=== PATIENT | female | born 1935 | race Caucasian/White ===

== ENCOUNTER 2016-06-08 13:40 | Emergency (ER) | payer MEDICARE ==
[~2016-06-08] VITALS: Ht 152.4 cm; Wt 97.5 kg
[~2016-06-08 13:40] MED LIST: ALBU8I; ATOR20TA42 PO; CALC500C6 PO; FURO20TA PO; ISOS120T14 PO; LISI-357 PO; LOPR50TA12 PO; NITR.3 SL; OMEP20TA PO; POTA-243 PO; VIT250TA PO
[2016-06-08 13:42] VITALS: BP 157/74; PULSE 67; RESP 14; TEMP 98; O2SAT 94
[2016-06-08] MEDS ORDERED: ONDANSETRON HCL 4 MG/2 ML VIAL IVP ONE (15:30)
[2016-06-08] MEDS ORDERED: MORPHINE SULFATE 4 MG/ML INJ IV PUSH ONE (15:30)
[2016-06-08] MEDS ORDERED: SODIUM CHLORID 0.9% 500 ML INJ 500 ML IV ONE (15:30)
[2016-06-08] MEDS ORDERED: SODIUM CHLORIDE 0.9% FLUSH 5 ML FLUSH IVF PRN (15:30)
[2016-06-08] MEDS ORDERED: ASCOPOW5 (15:34)
[2016-06-08] MEDS ORDERED: ISOS120T PO (15:34)
[2016-06-08] MEDS ORDERED: METO50TA PO (15:34)
[2016-06-08] MEDS ORDERED: ALBUAER3 INH (15:34)
[2016-06-08] MEDS ORDERED: FURO20TA PO (15:34)
[2016-06-08] MEDS ORDERED: LIPI40TA PO (15:34)
[2016-06-08] MEDS ORDERED: OMEP20TA PO (15:34)
[2016-06-08] MEDS ORDERED: LISI-519 PO (15:35)
[2016-06-08] MEDS ORDERED: K DUR (15:35)
[2016-06-08] MEDS ORDERED: OCUVTAB PO (15:35)
[2016-06-08] MEDS ORDERED: NITR0.4S SL (15:35)
[2016-06-08] MEDS ORDERED: CALC500T35 (15:35)
[2016-06-08] MEDS ORDERED: [UNRECOGNIZED DRUG - REMARK] (15:41)
[2016-06-08 16:10] LABS: AUTOMATED NEUTROPHIL # 4.2 TH/MM3 (1.8-7.7); BASOPHIL % 0.6 % (0.0-2.0); EOSINOPHIL # 0.2 TH/MM3 (0-0.4); EOSINOPHIL % 2.4 % (0.0-4.0); HEMATOCRIT 34.8 % (35.0-46.0); LYMPH % 36.1 % (9.0-44.0); LYMPHOCYTE # 2.9 TH/MM3 (1.0-4.8); MEAN CELL VOLUME 76.6 FL (80.0-100.0); MEAN CORPUSCULAR HEMOGLOBIN 23.9 PG (27.0-34.0); MEAN CORPUSCULAR HGB CONC 31.2 % (32.0-36.0); MONO % 9.2 % (0.0-8.0); NEUT % 51.7 % (16.0-70.0); PLATELET COUNT 219 TH/MM3 (150-450); RED BLOOD COUNT 4.55 MIL/MM3 (4.00-5.30); RED CELL DISTRIBUTION WIDTH 17.1 % (11.6-17.2); WHITE BLOOD COUNT 8.1 TH/MM3 (4.0-11.0)
[2016-06-08 16:14] LABS: HEMO FLAGS AUTO DIFF
--- NOTE | 2016-06-08 16:24 | RADRPT ---
EXAM DATE/TIME: 06/08/2016 15:47 [facility] COMPARISON: No previous studies available for comparison. INDICATIONS : Abdomen pain. ORAL CONTRAST: No oral contrast ingested. RADIATION DOSE: 19.46 CTDIvol (mGy) MEDICAL HISTORY : Cardiovascular disease. SURGICAL HISTORY : None. ENCOUNTER: Initial ACUITY: 1 day PAIN SCALE: 5/10 LOCATION: Bilateral abdomen. TECHNIQUE: Volumetric scanning of the abdomen and pelvis was performed. Using automated exposure control and ad justment of the mA and/or kV according to patient size, radiation dose was kept as low as reasonably achievable to obtain optimal diagnostic quality images. FINDINGS: LOWER LUNGS: The moderate cardiomegaly without evidence of pericardial effusion. Extensive coronary artery disease . The lungs demonstrate mild dependent atelectasis but are otherwise unremarkable. LIVER: Homogeneous density without lesion. There is no dilation of the biliary tree. No calcified gallston es. Small calcified granulomas. SPLEEN: Normal size without lesion. PANCREAS: Within normal limits. KIDNEYS: No evidence of stones or hydronephrosis. There are 2 well-circumscribed simple appearing left-sided r enal cysts seen within the lower pole measuring approximately 2 cm in size. No evidence of concerning renal mass.. ADRENAL GLANDS: Within normal limits. VASCULAR: The noncontrast evaluation of the abdominal aorta is significant for extensive atherosclerosis and an aortic bifemoral graft from just below level of the renal arteries and extending into the proximal c ommon iliac arteries. BOWEL/MESENTERY: The stomach, small bowel, and colon demonstrate no acute abnormality. There is no free intraperitone al air or fluid. No evidence of inflammatory process. ABDOMINAL WALL: Within normal limits. RETROPERITONEUM: There is no lymphadenopathy. BLADDER: No wall thickening or mass. REPRODUCTIVE: Patient is status post prior hysterectomy. INGUINAL: There is no lymphadenopathy or hernia. MUSCULOSKELETAL: Within normal limits for patient age. Extensive degenerative changes are noted. No evidence of concer raisa lytic or blastic lesion. CONCLUSION: Extensive atherosclerosis of the abdominal aorta with stents as noted above. No evidence of adjacent periaortic abnormality. No evidence of inflammatory process within the abdomen or pelvis.. Lesley Carroll MD on June 08, 2016 at 16:17 Board Certified Radiologist. This report was verified electronically.
[2016-06-08 16:33] LABS: ANION GAP 8 MEQ/L (5-15); AST (GOT) 18 U/L (15-37); BICARBONATE 27.3 MEQ/L (21.0-32.0); BLOOD UREA NITROGEN 14 MG/DL (7-18); CHLORIDE 108 MEQ/L (98-107); GLOMERULAR FILTRATION RATE 61 ML/MIN (>89); POTASSIUM 4.1 MEQ/L (3.5-5.1); SODIUM (NA) 143 MEQ/L (136-145)
[2016-06-08 16:37] LABS: ALKALINE PHOSPHATASE 94 U/L (45-117); ALT (GPT) 21 U/L (10-53); TOTAL BILIRUBIN ADULT 0.6 MG/DL (0.2-1.0)
[2016-06-08 16:49] LABS: BACTERIA, URINE FEW /hpf; BLOOD, URINE NEG (NEG); CALCIUM OXALATE CRYSTALS,URINE FEW /hpf; COMMENT (UR) CULTURE INDICATED; CULTURE IF INDICATED CULTURE INDICATED; GLUCOSE,URINE NEG (NEG); KETONE, URINE NEG (NEG); MUCUS URINE FEW /lpf (OCC); NITRITE,URINE NEG (NEG); SQUAMOUS EPITHELIAL CELL URINE 2 /hpf (0-5); TRANSITIONAL EPI CELLS, URINE 2 /hpf; URINE COLOR YELLOW (YELLW/STRAW)
[2016-06-08 16:53] LABS: PLATELET ESTIMATE SMEAR NORMAL (NORMAL); PLATELET MORPHOLOGY NORMAL (NORMAL); SCAN/DIFF AUTO DIFF CONFIRMED
[2016-06-08] MEDS ORDERED: NITROFURANTOIN MONOHYD MACROCR 100 MG CAP PO ONE (17:00)
[2016-06-08] MEDS ORDERED: MACR100C2 PO (17:02)
--- NOTE | 2016-06-08 17:03 | PD ---
HPI Chief Complaint: GI Complaint Time Seen by Provider: 15:12 Travel History International Travel<30 days: No Contact w/Intl Traveler<30days: No Traveled to known affect area: No History of Present Illness HPI 80-year-old female came to the emergency room with history of abdominal pain. 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 She was mainly concerned from that standpoint. No history of fever or chills. No history of vomiting. She has some increase frequency of bowel movement past couple days. Vital signs were stable. [facility] Past Medical History Narrative Medical List of her past medical history as reviewed from the nursing note. Arthritis: No Asthma: Yes (bronchitis) Autoimmune Disease: No Blood Disorders: No Anxiety: No Depression: No Heart Rhythm Problems: No Cancer: No Cardiac Catheterization: Yes Cardiovascular Problems: Yes High Cholesterol: Yes Chemotherapy: No Chest Pain: Yes Congestive Heart Failure: No COPD: No Cerebrovascular Accident: No Coronary Artery Disease: Yes Diabetes: Yes (type 2 ) Patient Takes Glucophage: No Diminished Hearing: No Endocrine: No GERD: No Glaucoma: No Genitourinary: No Hepatitis: No Hiatal Hernia: No Hypertension: Yes Immune Disorder: No Kidney Stones: No Medical other: Yes (1 STENT IN HT) Musculoskeletal: No Neurologic: No Psychiatric: No Reproductive: No Respiratory: Yes (ASTHMA) Myocardial Infarction: Yes Radiation Therapy: No Renal Failure: No Seizures: No Sleep Apnea: No Thyroid Disease: No Ulcer: No PNEUMOCCOCAL Vaccine (Year): 3 ?: Not Menopausal: Yes Past Surgical History Abdominal Aneurysm Repair: Yes AICD: No Cardiac Surgery: Yes (CABG X2 1999) Coronary Artery Bypass Graft: Yes Coronary Stent: Yes Eye Surgery: Yes (BILAT CATARACT EXTRACT.) Genitourinary Surgery: No Pacemaker: No Other Surgery: Yes (DOUBLE CABG/ occlusion to circulation r leg ) Social History Alcohol Use: Yes (rare) Tobacco Use: No Substance Use: No Allergies-Medications (Allergen,Severity, Reaction): Uncoded Allergies: CRESTOR (Allergy, Severe, 11/23/11) EXTREME PAIN CALF OF LEGS Comments List of her allergies reviewed from the nursing note. Reported Meds & Prescriptions Reported Meds & Active Scripts Active Macrobid (Nitrofurantoin Monoh/Nitrofur Macro) 100 Mg Cap 100 Mg PO BID 10 Days Reported Potassium Chloride ER (Potassium Chloride) 10 Meq Cap 10 Meq PO DAILY [unk diabetic pill] DAILY Nitrostat SL (Nitroglycerin) 0.4 Mg Subl 0.4 Mg SL DIRECTED PRN 1 tablet under the tongue as needed for chest pain. Repeat every 5 minutes for a total of 3 DOSES or call 911 if NO relief. Ocuvite (Multiple Vitamins W/ Minerals) 1 Tab 1 Tab PO DAILY Calcium (Oyster Shell) 500 Mg Tab DAILY Lisinopril 5 Mg Tab 5 Mg PO DAILY Furosemide 20 Mg Tab 20 Mg PO DAILY Lipitor (Atorvastatin Calcium) 40 Mg Tab 40 Mg PO HS Ascorbic Acid (Ascorbic Acid (Bulk)) 1 Pow Pow 250 Mg DAILY Omeprazole 20 Mg Tab 20 Mg PO DAILY Metoprolol Tartrate 50 Mg Tab 50 Mg PO DAILY Isosorbide Mononitrate ER (Isosorbide Mononitrate) 120 Mg Zane 120 Mg PO DAILY Proair Hfa 8.5 GM Inh (Albuterol Sulfate) 90 Mcg/Act Aer 1 Puff INH Q4H PRN 108 mcg/actuation Narrative Medication List of her medications reviewed from the nursing note. Review of Systems Except as stated in HPI: all other systems reviewed are Neg Physical Exam Narrative GENERAL: Awake, alert, elderly, anxious SKIN: Warm and dry. HEAD: Atraumatic. Normocephalic. EYES: Pupils equal and round. No scleral icterus. No injection or drainage. ENT: No nasal bleeding or discharge. Mucous membranes pink and moist. NECK: Trachea midline. No JVD. CARDIOVASCULAR: Regular rate and rhythm. No murmur appreciated. RESPIRATORY: No accessory muscle use. Clear to auscultation. Breath sounds equal bilaterally. GASTROINTESTINAL: Abdomen soft, tender left lower quadrant on palpation, nondistended. Hepatic and splenic margins not palpable. MUSCULOSKELETAL: No obvious deformities. No clubbing. No cyanosis. No edema. NEUROLOGICAL: Awake and alert. No obvious cranial nerve deficits. Motor grossly within normal limits. Normal speech. PSYCHIATRIC: Appropriate mood and affect; insight and judgment normal. Data Data Last Documented VS Vital Signs Date Time Temp Pulse Resp B/P Pulse Ox O2 Delivery O2 Flow Rate FiO2 06/08/16 13:42 98.0 67 14 157/74 94 Room Air Orders Complete Blood Count With Diff (06/08/16 15:23) Comprehensive Metabolic Panel (06/08/16 15:23) Prothrombin Time / Inr (Pt) (06/08/16 15:23) Urinalysis - C+S If Indicated (06/08/16 15:23) Ct Abd/Pel W/O Iv Contrast (06/08/16 15:23) Iv Access Insert/Monitor (06/08/16 15:23) Ecg Monitoring (06/08/16 15:23) Oximetry (06/08/16 15:23) Morphine Inj (Morphine Inj) (06/08/16 15:30) Ondansetron Inj (Zofran Inj) (06/08/16 15:30) Sodium Chloride 0.9% Flush (Ns Flush) (06/08/16 15:30) Sodium Chlorid 0.9% 500 Ml Inj (Ns 500 M (06/08/16 15:30) Urine Culture (06/08/16 16:20) Nitrofurantoin Monohyd Macrocr (Macrobid (06/08/16 17:00) Labs Laboratory Tests Test 06/08/16 06/08/16 15:50 16:20 White Blood Count 8.1 TH/MM3 Red Blood Count 4.55 MIL/MM3 Hemoglobin 10.8 GM/DL Hematocrit 34.8 % Mean Corpuscular Volume 76.6 FL Mean Corpuscular Hemoglobin 23.9 PG Mean Corpuscular Hemoglobin 31.2 % Concent Red Cell Distribution Width 17.1 % Platelet Count 219 TH/MM3 Mean Platelet Volume 8.0 FL Neutrophils (%) (Auto) 51.7 % Lymphocytes (%) (Auto) 36.1 % Monocytes (%) (Auto) 9.2 % Eosinophils (%) (Auto) 2.4 % Basophils (%) (Auto) 0.6 % Neutrophils # (Auto) 4.2 TH/MM3 Lymphocytes # (Auto) 2.9 TH/MM3 Monocytes # (Auto) 0.7 TH/MM3 Eosinophils # (Auto) 0.2 TH/MM3 Basophils # (Auto) 0.0 TH/MM3 CBC Comment AUTO DIFF Differential Comment AUTO DIFF CONFIRMED Platelet Estimate NORMAL Platelet Morphology Comment NORMAL Red Cell Morphology Comment NORMAL Prothrombin Time 11.0 SEC Prothromb Time International 1.0 RATIO Ratio Sodium Level 143 MEQ/L Potassium Level 4.1 MEQ/L Chloride Level 108 MEQ/L Carbon Dioxide Level 27.3 MEQ/L Anion Gap 8 MEQ/L Blood Urea Nitrogen 14 MG/DL Creatinine 0.89 MG/DL Estimat Glomerular Filtration 61 ML/MIN Rate Random Glucose 116 MG/DL Calcium Level 8.6 MG/DL Total Bilirubin 0.6 MG/DL Aspartate Amino Transf 18 U/L (AST/SGOT) Alanine Aminotransferase 21 U/L (ALT/SGPT) Alkaline Phosphatase 94 U/L Total Protein 7.1 GM/DL Albumin 3.4 GM/DL Urine Color YELLOW Urine Turbidity HAZY Urine pH 6.0 Urine Specific [place] 1.024 Urine Protein TRACE mg/dL Urine Glucose (UA) NEG mg/dL Urine Ketones NEG mg/dL Urine Occult Blood NEG Urine Nitrite NEG Urine Bilirubin NEG Urine Urobilinogen 2.0 MG/DL Urine Leukocyte Esterase LARGE Urine RBC 1 /hpf Urine WBC 36 /hpf Urine Squamous Epithelial 2 /hpf Cells Urine Transitional Epithelial 2 /hpf Cells Urine Calcium Oxalate Crystals FEW /hpf Urine Bacteria FEW /hpf Urine Mucus FEW /lpf Microscopic Urinalysis Comment CULTURE INDICATED MDM Medical Decision Making Medical Screen Exam Complete: Yes Emergency Medical Condition: Yes Medical Record Reviewed: Yes Differential Diagnosis Diverticulitis, colitis, UTI, abdominal pain NOS Narrative Course [address] scan is not suggestive of any inflammatory changes. Show significant atherosclerosis with stents. Blood test results are within normal limit. Patient does have a UTI. I have given her dose of Macrobid and I'll discharge her home on Macrobid. Patient refused pain medication that I had ordered. Procedures EKG Prior to Arrival: No Diagnosis Primary Impression: Abdominal pain Qualified Code: R10.32 - Left lower quadrant pain Additional Impression: UTI (urinary tract infection) Qualified Code: N39.0 - Urinary tract infection without hematuria, site unspecified Referrals: Primary Care Physician 2 days Additional Instructions: Please return to the ER if the condition worsens or any other new concerns. Otherwise follow-up with your primary care in couple days. Patient has been the prescription direction. Med/Other Pt SpecificInfo: Prescription(s) given Scripts Nitrofurantoin Monohydrate Macrocrystals (Macrobid)100 Mg Voc710 Mg PO BID 10 Days Ref 0 Prov:Florentino Powell MD 06/08/16 Disposition: 01 DISCHARGE HOME Condition: Stable Florentino Powell MD Jun 08, 2016 17:03
[2016-06-09] MEDS ORDERED: POTA10CA PO (11:12)
== END 2016-06-08 17:58 | disposition home or self-care (01) ==
LOC: NEPA 13:40
DX: N39.0 Urinary tract infection, site not specified (principal); I25.10 Atherosclerotic heart disease of native coronary artery without angina pectoris; I10 Essential (primary) hypertension; Z95.1 Presence of aortocoronary bypass graft; B96.89 Other specified bacterial agents as the cause of diseases classified elsewhere
CPT/HCPCS: 74176; 80053; 81001; 85025; 85610; 87086

== ENCOUNTER 2017-01-15 16:35 | Emergency (ER) | payer MEDICARE ==
[~2017-01-15] VITALS: Ht 152.4 cm; Wt 94.0 kg
[2017-01-15 16:35] VITALS: BP 116/57; PULSE 78; RESP 16; TEMP 98; O2SAT 96
[~2017-01-15 16:35] MED LIST changes: -ALBU8I; +ALBUAER3 INH; +ASCOPOW5; -ATOR20TA42 PO; -CALC500C6 PO; +CALC500T35 PO; +ISOS120T PO; -ISOS120T14 PO; +LIPI40TA PO; -LISI-357 PO; +LISI-519 PO; -LOPR50TA12 PO; +MACR100C2 PO; +METO50TA PO; -NITR.3 SL; +NITR0.4S SL; +OCUVTAB PO; -POTA-243 PO; +POTA10CA PO; -VIT250TA PO; +[UNRECOGNIZED DRUG - REMARK]
--- NOTE | 2017-01-15 16:55 | PD ---
HPI Chief Complaint: fall Time Seen by Provider: 16:52 Travel History International Travel<30 days: No Contact w/Intl Traveler<30days: No History of Present Illness HPI 81-year-old elderly female presents to the emergency department via EMS for evaluation after a fall that occurred just prior to arrival. The patient apparently [place] walking [place] the mall when her walker wheel got stuck in a hole according to bystanders when she fell backwards. The patient states she was walking is unsure what happened, but does remember falling backwards. She denies any dizziness or chest pain or weakness before the fall. She states she felt fine. She had the back of her head, but denies LOC. She has small abrasion to the back of her head. The patient denies any neck pain or back pain. No chest pain or abdominal pain. No vomiting. Patient was able to ambulate after the fall. According to EMS, she was confused on their arrival. However, she is now alert and oriented to person, place, time, situation. The patient is on a baby aspirin, but no other anticoagulants. She does have history of cardiac bypass surgery, hypertension. PFSH Past Medical History Arthritis: No Asthma: Yes (bronchitis) Autoimmune Disease: No Blood Disorders: No Anxiety: No Depression: No Heart Rhythm Problems: No Cancer: No Cardiac Catheterization: Yes Cardiovascular Problems: Yes High Cholesterol: Yes Chemotherapy: No Chest Pain: Yes Congestive Heart Failure: No COPD: No Cerebrovascular Accident: No Coronary Artery Disease: Yes Diabetes: Yes (type 2 ) Diminished Hearing: No Endocrine: No GERD: No Glaucoma: No Genitourinary: No Hepatitis: No Hiatal Hernia: No Hypertension: Yes Immune Disorder: No Kidney Stones: No Musculoskeletal: No Neurologic: No Psychiatric: No Reproductive: No Respiratory: Yes (ASTHMA) Myocardial Infarction: Yes Radiation Therapy: No Renal Failure: No Seizures: No Sleep Apnea: No Thyroid Disease: No Ulcer: No PNEUMOCCOCAL Vaccine (Year): 3 Menopausal: Yes Past Surgical History Abdominal Aneurysm Repair: Yes AICD: No Cardiac Surgery: Yes (CABG X2 1999) Coronary Artery Bypass Graft: Yes Coronary Stent: Yes Eye Surgery: Yes (BILAT CATARACT EXTRACT.) Genitourinary Surgery: No Pacemaker: No Other Surgery: Yes (DOUBLE CABG/ occlusion to circulation r leg ) Social History Alcohol Use: Yes (rare) Tobacco Use: No Substance Use: No Allergies-Medications (Allergen,Severity, Reaction): Uncoded Allergies: CRESTOR (Allergy, Severe, 11/23/11) EXTREME PAIN CALF OF LEGS Reported Meds & Prescriptions Reported Meds & Active Scripts Active Macrobid (Nitrofurantoin Monoh/Nitrofur Macro) 100 Mg Cap 100 Mg PO BID 10 Days Reported Potassium Chloride ER (Potassium Chloride) 10 Meq Cap 10 Meq PO DAILY [unk diabetic pill] DAILY Nitrostat SL (Nitroglycerin) 0.4 Mg Subl 0.4 Mg SL DIRECTED PRN 1 tablet under the tongue as needed for chest pain. Repeat every 5 minutes for a total of 3 DOSES or call 911 if NO relief. Ocuvite (Multiple Vitamins W/ Minerals) 1 Tab 1 Tab PO DAILY Calcium (Oyster Shell) 500 Mg Tab DAILY Lisinopril 5 Mg Tab 5 Mg PO DAILY Furosemide 20 Mg Tab 20 Mg PO DAILY Lipitor (Atorvastatin Calcium) 40 Mg Tab 40 Mg PO HS Ascorbic Acid (Ascorbic Acid (Bulk)) 1 Pow Pow 250 Mg DAILY Omeprazole 20 Mg Tab 20 Mg PO DAILY Metoprolol Tartrate 50 Mg Tab 50 Mg PO DAILY Isosorbide Mononitrate ER (Isosorbide Mononitrate) 120 Mg Zane 120 Mg PO DAILY Proair Hfa 8.5 GM Inh (Albuterol Sulfate) 90 Mcg/Act Aer 1 Puff INH Q4H PRN 108 mcg/actuation Review of Systems Except as stated in HPI: all other systems reviewed are Neg Physical Exam Narrative GENERAL: Well-nourished, well-developed elderly female patient, afebrile. SKIN: Focused skin assessment warm/dry. Patient has small abrasion to the occipital scalp. No lacerations HEAD: Normocephalic. EYES: No scleral icterus. No injection or drainage. NECK: Supple, trachea midline. No JVD or lymphadenopathy. CARDIOVASCULAR: Regular rate and rhythm without murmurs, gallops, or rubs. RESPIRATORY: Breath sounds equal bilaterally. No accessory muscle use. Lungs sounds are clear to auscultation. GASTROINTESTINAL: Abdomen soft, non-tender, nondistended. MUSCULOSKELETAL: No cyanosis, or edema. No bony point tenderness. BACK: Nontender without obvious deformity. No CVA tenderness. Data Data Last Documented VS Vital Signs Date Time Temp Pulse Resp B/P Pulse Ox O2 Delivery O2 Flow Rate FiO2 01/15/17 16:59 Room Air 01/15/17 16:35 98.0 78 16 116/[address] Brain W/O Iv Contrast(Rout) (01/15/17 ) Ct Cerv Spine W/O Contrast (01/15/17 ) MDM Medical Decision Making Medical Screen Exam Complete: Yes Emergency Medical Condition: Yes Medical Record Reviewed: Yes Interpretation(s) Ct cervical spine - CONCLUSION: Negative trauma CT. Last Impressions Head CT 01/15/17 0000 Signed Impressions: Service Date/Time: Sunday, January 15, 2017 17:09 - CONCLUSION: Soft tissue swelling with no acute fracture or hemorrhage. Gagan Valenzuela MD Differential Diagnosis Intracranial abnormality versus closed head injury versus cervical strain versus cervical fracture Narrative Course 81-year-old elderly female presents to the emergency department for evaluation after a fall that occurred just prior to arrival. CT of the brain and cervical spine are ordered and pending. Patient appears well on exam. CT of the brain shows Soft tissue swelling with no acute fracture or hemorrhage. CT of the cervical spine is negative. Tetanus immunization is updated. Patient is stable for outpatient follow up. She is to return for any acute, worsening of symptoms. Diagnosis Primary Impression: Closed head injury Qualified Code: S09.90XA - Closed head injury, initial encounter Additional Impressions: Scalp abrasion Qualified Code: S00.01XA - Abrasion of scalp, initial encounter Fall Qualified Code: W19.XXXA - Fall, initial encounter Referrals: Primary Care Physician call for appointment Patient Instructions: Abrasion (ED), General Instructions, Head Injury (ED) Additional Instructions: [id number] Tylenol every 4 hours as needed for pain. Follow-up with your primary care physician. Return to the emergency department for any acute worsening of symptoms. Med/Other Pt SpecificInfo: No Change to Meds Disposition: 01 DISCHARGE HOME Condition: Stable Winnie Low RIP Jan 15, 2017 16:55
--- NOTE | 2017-01-15 17:23 | RADRPT ---
EXAM DATE/TIME: 01/15/2017 17:09 [facility] COMPARISON: No previous studies available for comparison. INDICATIONS : Cephalgia after head trauma. RADIATION DOSE: 28.30 CTDIvol (mGy) MEDICAL HISTORY : Cardiovascular disease. Hypertension. Diabetes SURGICAL HISTORY : CABG AAA, Coronary stents ENCOUNTER: Initial ACUITY: 1 day PAIN SCALE: 4/10 LOCATION: cranial TECHNIQUE: Multiple contiguous axial images were obtained of the head. Using automated exposure control and adj ustment of the mA and/or kV according to patient size, radiation dose was kept as low as reasonably a chievable to obtain optimal diagnostic quality images. DICOM format image data is available electro nically for review and comparison. FINDINGS: CEREBRUM: The ventricles are normal for age. No evidence of midline shift, mass lesion, hemorrhage or acute in farction. Calcifications are present in the basal ganglia No extra-axial fluid collections are seen. POSTERIOR FOSSA: The cerebellum and brainstem are intact. The 4th ventricle is midline. The cerebellopontine angle i s unremarkable. EXTRACRANIAL: The visualized portion of the orbits is intact. SKULL: The calvaria is intact. No evidence of skull fracture. There is mild soft tissue swelling over the p osterior upper occipital region. CONCLUSION: Soft tissue swelling with no acute fracture or hemorrhage. Gagan Valenzuela MD on January 15, 2017 at 17:19 Board Certified Radiologist. This report was verified electronically.
--- NOTE | 2017-01-15 17:31 | RADRPT ---
EXAM DATE/TIME: 01/15/2017 17:09 [facility] COMPARISON: No previous studies available for comparison. INDICATIONS : Fall. RADIATION DOSE: 22.35 CTDIvol (mGy) MEDICAL HISTORY : Cardiovascular disease. Hypertension. Diabetes SURGICAL HISTORY : CABG AAA,Coronary stent ENCOUNTER: Initial ACUITY: 1 day PAIN SCALE: 7/10 LOCATION: Bilateral neck TECHNIQUE: Volumetric scanning of the cervical spine was performed. Multiplanar reconstructions i n the sagittal, coronal and oblique axial planes were performed. Using automated exposure control a nd adjustment of the mA and/or kV according to patient size, radiation dose was kept as low as reason ably achievable to obtain optimal diagnostic quality images. DICOM format image data is available e lectronically for review and comparison. FINDINGS: The sagittal reconstructions demonstrate that the vertebral bodies are intact. There is mild retrolis thesis of C4 on C5 of several millimeters. Degenerative disc changes are present at the C4-5 level. T here are degenerative changes involving atlantoaxial joint. There is mild osteopenia. and normal prev ertebral soft tissues. The dens is intact and there is a normal atlantoaxial relationship. The axial images demonstrate that the vertebral bodies and posterior elements are intact. The soft ti ssues are within normal limits. There is no evidence of acute fracture or malalignment. CONCLUSION: Negative trauma CT. Gagan Valenzuela MD on January 15, 2017 at 17:25 Board Certified Radiologist. This report was verified electronically.
[2017-01-15] MEDS ORDERED: TETANUS/DIPHTHERIA TOXOID ADULT 0.5 ML VIAL IM ONE (17:45)
[2017-01-15] MEDS ORDERED: METF500T PO (17:52)
[2017-01-15] MEDS ORDERED: ASCO250T PO (17:52)
[2017-01-15 18:02] VITALS: BP 118/60
== END 2017-01-15 18:55 | disposition home or self-care (01) ==
LOC: NEPD 16:35
DX: S09.90XA Unspecified injury of head, initial encounter (principal); S00.01XA Abrasion of scalp, initial encounter; I10 Essential (primary) hypertension; E11.9 Type 2 diabetes mellitus without complications; I25.10 Atherosclerotic heart disease of native coronary artery without angina pectoris; W18.30XA Fall on same level, unspecified, initial encounter; Y93.01 Activity, walking, marching and hiking; Y92.59 Other trade areas as the place of occurrence of the external cause; Z23 Encounter for immunization
CPT/HCPCS: 70450; 72125; 90714; 99285

== ENCOUNTER 2017-03-01 16:08 | Emergency (ER) | payer MEDICARE ==
[~2017-03-01] VITALS: Ht 152.4 cm; Wt 95.0 kg
[~2017-03-01 16:08] MED LIST changes: +ASCO250T PO; -ASCOPOW5; -MACR100C2 PO; +METF500T PO; -[UNRECOGNIZED DRUG - REMARK]
[2017-03-01 16:14] VITALS: BP 140/70; PULSE 66; RESP 16; TEMP 97.8; O2SAT 96
--- NOTE | 2017-03-01 16:58 | PD ---
HPI Chief Complaint: Musculoskeletal Complaint Time Seen by Provider: 16:22 Travel History International Travel<30 days: No Contact w/Intl Traveler<30days: No Traveled to known affect area: No History of Present Illness HPI The patient was seen and examined in the presence of the nurse. This patient had a ultrasound of her left leg done in the office of vascular surgeon Dr. Aviles. She was advised to go to the emergency room because she had a DVT in the left leg. Patient has chronic pain in that leg and denies any swelling or redness or fever. No acute injury. Symptoms severity is moderate. No alleviating factors. She is not short of breath. Denies history of blood clot. She takes a daily aspirin. No exacerbating factors. Duration of pain is many months PFSH Past Medical History Arthritis: No Asthma: Yes (bronchitis) Autoimmune Disease: No Blood Disorders: No Anxiety: No Depression: No Heart Rhythm Problems: No Cancer: No Cardiac Catheterization: Yes Cardiovascular Problems: Yes High Cholesterol: Yes Chemotherapy: No Chest Pain: Yes Congestive Heart Failure: No COPD: No Cerebrovascular Accident: No Coronary Artery Disease: Yes Diabetes: Yes (type 2 ) Patient Takes Glucophage: Yes Diminished Hearing: No Endocrine: No GERD: No Glaucoma: No Genitourinary: No Hepatitis: No Hiatal Hernia: No Hypertension: Yes Immune Disorder: No Kidney Stones: No Medical other: Yes (1 STENT IN HT) Musculoskeletal: No Neurologic: No Psychiatric: No Reproductive: No Respiratory: Yes (ASTHMA) Immunizations Current: Yes Myocardial Infarction: Yes Radiation Therapy: No Renal Failure: No Seizures: No Sleep Apnea: No Thyroid Disease: No Ulcer: No PNEUMOCCOCAL Vaccine (Year): 3 Menopausal: Yes Past Surgical History Abdominal Aneurysm Repair: Yes AICD: No Cardiac Surgery: Yes (CABG X2 1999) Coronary Artery Bypass Graft: Yes Coronary Stent: Yes Eye Surgery: Yes (BILAT CATARACT EXTRACT.) Genitourinary Surgery: No Pacemaker: No Thoracic Surgery: Yes Other Surgery: Yes (DOUBLE CABG/ occlusion to circulation r leg ) Social History Alcohol Use: Yes (rare) Tobacco Use: No Substance Use: No Allergies-Medications (Allergen,Severity, Reaction): Uncoded Allergies: CRESTOR (Allergy, Severe, 11/23/11) EXTREME PAIN CALF OF LEGS Reported Meds & Prescriptions Reported Meds & Active Scripts Active Xarelto (Rivaroxaban) 15 Mg Tab 15 Mg PO Q12HR Reported Metformin (Metformin HCl) 500 Mg Tab 500 Mg PO DAILY With a meal Potassium Chloride ER (Potassium Chloride) 10 Meq Cap 10 Meq PO DAILY Nitrostat SL (Nitroglycerin) 0.4 Mg Subl 0.4 Mg SL DIRECTED PRN 1 tablet under the tongue as needed for chest pain. Repeat every 5 minutes for a total of 3 DOSES or call 911 if NO relief. Lisinopril 5 Mg Tab 5 Mg PO DAILY Furosemide 20 Mg Tab 20 Mg PO DAILY Lipitor (Atorvastatin Calcium) 40 Mg Tab 40 Mg PO HS Omeprazole 20 Mg Tab 20 Mg PO DAILY Metoprolol Tartrate 50 Mg Tab 50 Mg PO DAILY Isosorbide Mononitrate ER (Isosorbide Mononitrate) 120 Mg Zane 120 Mg PO DAILY Proair Hfa 8.5 GM Inh (Albuterol Sulfate) 90 Mcg/Act Aer 1 Puff INH Q4H PRN 108 mcg/actuation Review of Systems General / Constitutional: No: Fever Eyes: No: Visual changes HENT: No: Headaches Cardiovascular: No: Chest Pain or Discomfort Respiratory: No: Shortness of Breath Gastrointestinal: No: Abdominal Pain Genitourinary: No: Dysuria Musculoskeletal: Positive: Pain Skin: No Rash Neurologic: No: Weakness Psychiatric: No: Depression Endocrine: No: Polydipsia Hematologic/Lymphatic: No: Easy Bruising Physical Exam Narrative GENERAL: Well-nourished, well-developed patient in no apparent distress. SKIN: Focused skin assessment reveals no rash and nodules. Skin is Warm and dry. HEAD: Atraumatic. Normocephalic. EYES: Pupils equal and round. No scleral icterus. No injection or drainage. ENT: No nasal bleeding or discharge. Mucous membranes pink and moist. NECK: Trachea midline. No JVD. CARDIOVASCULAR: Regular rate and rhythm. No murmur appreciated. RESPIRATORY: No accessory muscle use. Clear to auscultation. Breath sounds equal bilaterally. GASTROINTESTINAL: Abdomen soft, obese, non-tender, nondistended. Hepatic and splenic margins not palpable. MUSCULOSKELETAL: No obvious deformities. No clubbing. No cyanosis. No edema. Legs are symmetric and exam. There is no erythema or warmth or bony tenderness. NEUROLOGICAL: Awake and alert. No obvious cranial nerve deficits. Motor grossly within normal limits. Normal speech. PSYCHIATRIC: Appropriate mood and affect; insight and judgment normal. Data Data Last Documented VS Vital Signs Date Time Temp Pulse Resp B/P (MAP) Pulse Ox O2 Delivery O2 Flow Rate FiO2 03/01/17 18:25 68 18 144/79 (100) 96 Room Air 03/01/17 16:14 97.8 Orders Orders Iv Access Insert/Monitor (03/01/17 16:52) Complete Blood Count With Diff (03/01/17 16:52) Prothrombin Time / Inr (Pt) (03/01/17 16:52) Act Partial Throm Time (Ptt) (03/01/17 16:52) Rivaroxaban (Xarelto) (03/01/17 18:45) Labs Laboratory Tests Test 03/01/17 17:00 White Blood Count 9.1 TH/MM3 Red Blood Count 4.61 MIL/MM3 Hemoglobin 10.8 GM/DL Hematocrit 34.8 % Mean Corpuscular Volume 75.5 FL Mean Corpuscular Hemoglobin 23.3 PG Mean Corpuscular Hemoglobin Concent 30.9 % Red Cell Distribution Width 17.7 % Platelet Count 247 TH/MM3 Mean Platelet Volume 7.7 FL Neutrophils (%) (Auto) 60.0 % Lymphocytes (%) (Auto) 30.5 % Monocytes (%) (Auto) 7.8 % Eosinophils (%) (Auto) 0.8 % Basophils (%) (Auto) 0.9 % Neutrophils # (Auto) 5.4 TH/MM3 Lymphocytes # (Auto) 2.8 TH/MM3 Monocytes # (Auto) 0.7 TH/MM3 Eosinophils # (Auto) 0.1 TH/MM3 Basophils # (Auto) 0.1 TH/MM3 CBC Comment AUTO DIFF Differential Comment AUTO DIFF CONFIRMED Prothrombin Time 11.1 SEC Prothromb Time International Ratio 1.0 RATIO Activated Partial Thromboplast Time 24.0 SEC MDM Medical Decision Making Medical Screen Exam Complete: Yes Emergency Medical Condition: Yes Medical Record Reviewed: Yes Differential Diagnosis DVT, soft tissue injury, arthritis, chronic pain Narrative Course I have reviewed the patient's electronic medical record. I called and spoke with Dr. Aviles. He confirms that the patient did have an ultrasound today which revealed a left leg DVT. We discussed treatment options and he agrees with the plan of checking platelets and coagulation studies and if normal start her on Xarelto. Patient has 2 walkers at home but doesn't always want to use them. We had a lengthy discussion regarding the risk of bleeding with blood thinners and stressed the importance of using the walker all the time and she agrees to do so. She has appointment with her primary care physician tomorrow and she should discuss these matters with them as well. CBC is normal Coagulation studies are normal Diagnosis Primary Impression: Left leg DVT Qualified Codes: I82.4Y2 - Acute embolism and thrombosis of unspecified deep veins of left proximal lower extremity Additional Instructions: See your doctor tomorrow as scheduled Med/Other Pt SpecificInfo: Prescription(s) given Scripts Rivaroxaban (Xarelto) 15 Mg Tab 15 MG PO Q12HR for Blood Clot Prevention, #60 TAB 0 Refills Prov: Pipo Burciaga MD 03/01/17 Disposition: 01 DISCHARGE HOME Condition: Stable Pipo Burciaga MD Mar 01, 2017 16:58
[2017-03-01 17:12] LABS: AUTOMATED NEUTROPHIL # 5.4 TH/MM3 (1.8-7.7); BASOPHIL # 0.1 TH/MM3 (0-0.2); BASOPHIL % 0.9 % (0.0-2.0); EOSINOPHIL # 0.1 TH/MM3 (0-0.4); EOSINOPHIL % 0.8 % (0.0-4.0); HEMATOCRIT 34.8 % (35.0-46.0); LYMPH % 30.5 % (9.0-44.0); LYMPHOCYTE # 2.8 TH/MM3 (1.0-4.8); MEAN CELL VOLUME 75.5 FL (80.0-100.0); MEAN CORPUSCULAR HEMOGLOBIN 23.3 PG (27.0-34.0); MEAN CORPUSCULAR HGB CONC 30.9 % (32.0-36.0); MONO % 7.8 % (0.0-8.0); PLATELET COUNT 247 TH/MM3 (150-450); RED BLOOD COUNT 4.61 MIL/MM3 (4.00-5.30); RED CELL DISTRIBUTION WIDTH 17.7 % (11.6-17.2); WHITE BLOOD COUNT 9.1 TH/MM3 (4.0-11.0)
[2017-03-01 17:13] LABS: HEMO FLAGS AUTO DIFF
[2017-03-01 17:22] LABS: PROTHROMBIN TIME - PATIENT 11.1 SEC (9.8-11.6)
[2017-03-01 18:25] VITALS: BP 144/79; PULSE 68; RESP 18; O2SAT 96
[2017-03-01 18:41] LABS: SCAN/DIFF AUTO DIFF CONFIRMED
[2017-03-01] MEDS ORDERED: XARE15TA PO (18:43)
[2017-03-01] MEDS ORDERED: RIVAROXABAN 15 MG TAB PO ONE (18:45)
[2017-03-01 19:44] VITALS: BP 135/72; TEMP 97.4
== END 2017-03-01 19:48 | disposition home or self-care (01) ==
LOC: PHED 16:08
DX: I82.4Y2 Acute embolism and thrombosis of unspecified deep veins of left proximal lower extremity (principal); E11.9 Type 2 diabetes mellitus without complications; E78.00 Pure hypercholesterolemia, unspecified; I10 Essential (primary) hypertension; I25.2 Old myocardial infarction; Z79.82 Long term (current) use of aspirin; Z95.1 Presence of aortocoronary bypass graft; Z95.5 Presence of coronary angioplasty implant and graft
CPT/HCPCS: 85025; 85610; 85730; 99283

== ENCOUNTER 2017-07-17 13:06 | Inpatient (IN) | payer MEDICARE ==
[2017-07-17] VITALS (7 sets, daily range): BP systolic 129–155; BP diastolic 60–86; PULSE 91–108; RESP 18–20; TEMP 98.6–98.8; O2SAT 91–99
[~2017-07-17] VITALS: Ht 152.4 cm; Wt 93.7 kg
[~2017-07-17 13:06] MED LIST changes: -ASCO250T PO; -CALC500T35 PO; -OCUVTAB PO; -OMEP20TA PO; +OMEP20TA93 PO; +XARE15TA PO
[2017-07-17 14:08] LABS: AUTOMATED NEUTROPHIL # 2.6 TH/MM3 (1.8-7.7); BASOPHIL % 0.8 % (0.0-2.0); EOSINOPHIL % 0.7 % (0.0-4.0); HEMATOCRIT 32.9 % (35.0-46.0); HEMOGLOBIN 10.6 GM/DL (11.6-15.3); LYMPH % 41.2 % (9.0-44.0); LYMPHOCYTE # 2.4 TH/MM3 (1.0-4.8); MEAN CELL VOLUME 77.9 FL (80.0-100.0); MEAN CORPUSCULAR HEMOGLOBIN 25.1 PG (27.0-34.0); MEAN CORPUSCULAR HGB CONC 32.2 % (32.0-36.0); MEAN PLATELET VOLUME 7.5 FL (7.0-11.0); MONO % 11.6 % (0.0-8.0); MONOCYTE # 0.7 TH/MM3 (0-0.9); NEUT % 45.7 % (16.0-70.0); PLATELET COUNT 283 TH/MM3 (150-450); RED BLOOD COUNT 4.23 MIL/MM3 (4.00-5.30); RED CELL DISTRIBUTION WIDTH 22.3 % (11.6-17.2); WHITE BLOOD COUNT 5.8 TH/MM3 (4.0-11.0)
--- NOTE | 2017-07-17 14:16 | RADRPT ---
EXAM DATE/TIME: 07/17/2017 13:59 [facility] COMPARISON: CHEST SINGLE AP, April 27, 2014, 14:44. INDICATIONS : Shortness of breath. MEDICAL HISTORY : Bronchitis. SURGICAL HISTORY : None. ENCOUNTER: Initial ACUITY: 2 weeks PAIN SCORE: 0/10 LOCATION: chest FINDINGS: Stable median sternotomy wires and postsurgical changes of prior cardiac surgery. No significant new focal pleural or parenchymal opacities. Cardiomediastinal contours are stable. Remainder of the exam is unchanged. CONCLUSION: 1. No acute abnormality or significant interval change. Trent Tyson MD on July 17, 2017 at 14:13 Board Certified Radiologist. This report was verified electronically.
[2017-07-17 14:29] LABS: BICARBONATE 23.6 MEQ/L (21.0-32.0); CALCIUM 8.5 MG/DL (8.5-10.1); CREATININE 1.22 MG/DL (0.50-1.00)
[2017-07-17] MEDS: RESP: ALBUTEROL 2.5 MG/IPRATROPIUM 0.5 MG NEB (SCH) INH (15:23)
[2017-07-17] MEDS ORDERED: methylPREDNISolone SOD SUCC 125 MG/2 ML VIAL IV PUSH ONE (15:30)
--- NOTE | 2017-07-17 15:39 | PD ---
HPI Chief Complaint: Respiratory Symptoms Time Seen by Provider: 14:28 Travel History International Travel<30 days: No Contact w/Intl Traveler<30days: No Traveled to known affect area: No History of Present Illness HPI 81-year-old female complains of cough. She was discharged from [facility] prior after an admission for an infection of a surgical site ( left thigh) wound from a femoropopliteal bypass performed by Dr. Aviles and subsequently incised and drained by Dr. Aviles. The patient today states the cough is terrible at night. She has had no fever. She denies shortness of breath. She does suffer with bronchitis frequently and reports not having an inhaler for the past week, atypical for her. PFSH Past Medical History Hx Anticoagulant Therapy: Yes (XERALTO) Arthritis: No Asthma: Yes (bronchitis) Autoimmune Disease: No Blood Disorders: No Anxiety: No Depression: No Heart Rhythm Problems: No Cancer: No Cardiac Catheterization: Yes Cardiovascular Problems: Yes High Cholesterol: Yes Chemotherapy: No Chest Pain: Yes Congestive Heart Failure: No COPD: No Cerebrovascular Accident: No Coronary Artery Disease: Yes Diabetes: Yes (type 2 ) Diminished Hearing: No Endocrine: No GERD: No Glaucoma: No Genitourinary: No Hepatitis: No Hiatal Hernia: No Hypertension: Yes Immune Disorder: No Kidney Stones: No Musculoskeletal: No Neurologic: No Psychiatric: No Reproductive: No Respiratory: Yes (ASTHMA) Immunizations Current: Yes Myocardial Infarction: Yes Radiation Therapy: No Renal Failure: No Seizures: No Sleep Apnea: No Thyroid Disease: No Ulcer: No PNEUMOCCOCAL Vaccine (Year): 3 Menopausal: Yes Past Surgical History Abdominal Aneurysm Repair: Yes AICD: No Cardiac Surgery: Yes (CABG X2 1999) Coronary Artery Bypass Graft: Yes Coronary Stent: Yes Eye Surgery: Yes (BILAT CATARACT EXTRACT.) Genitourinary Surgery: No Pacemaker: No Thoracic Surgery: Yes Other Surgery: Yes (DOUBLE CABG/ occlusion to circulation r leg ) Social History Alcohol Use: Yes (rare) Tobacco Use: No Substance Use: No Allergies-Medications (Allergen,Severity, Reaction): Uncoded Allergies: CRESTOR (Allergy, Severe, 11/23/11) EXTREME PAIN CALF OF LEGS Reported Meds & Prescriptions Reported Meds & Active Scripts Active Xarelto (Rivaroxaban) 15 Mg Tab 15 Mg PO Q12HR Reported Metformin (Metformin HCl) 500 Mg Tab 500 Mg PO DAILY With a meal Potassium Chloride ER (Potassium Chloride) 10 Meq Cap 10 Meq PO DAILY Lisinopril 5 Mg Tab 5 Mg PO DAILY Furosemide 20 Mg Tab 20 Mg PO DAILY Lipitor (Atorvastatin Calcium) 40 Mg Tab 40 Mg PO HS Omeprazole 20 Mg Tab 20 Mg PO DAILY Metoprolol Tartrate 50 Mg Tab 50 Mg PO DAILY Isosorbide Mononitrate ER (Isosorbide Mononitrate) 120 Mg Zane 120 Mg PO DAILY Review of Systems Except as stated in HPI: all other systems reviewed are Neg General / Constitutional: No: Fever Physical Exam Narrative GENERAL: Well-nourished well-developed 81-year-old female no acute distress frequent cough Vital Signs Date Time Temp Pulse Resp B/P (MAP) Pulse Ox O2 Delivery O2 Flow Rate FiO2 07/17/17 15:23 97 Nasal Cannula 2.00 07/17/17 13:10 98.6 108 20 155/86 (109) 97 SKIN: Warm and dry. Surgical incision along the medial aspect of the left thigh ultimately 10 cm long trace erythema along the margin without induration or fluctuance. HEAD: Atraumatic. Normocephalic. EYES: Pupils equal and round. No scleral icterus. No injection or drainage. ENT: No nasal bleeding or discharge. Mucous membranes pink and moist. NECK: Trachea midline. No JVD. CARDIOVASCULAR: Heart rate is about 110. Regular rhythm. RESPIRATORY: No accessory muscle use. Clear to auscultation. Breath sounds equal bilaterally. GASTROINTESTINAL: Abdomen soft, non-tender, nondistended. Hepatic and splenic margins not palpable. MUSCULOSKELETAL: Extremities without clubbing, cyanosis, or edema. No obvious deformities. NEUROLOGICAL: Awake and alert. No obvious cranial nerve deficits. Motor grossly within normal limits. Five out of 5 muscle strength in the arms and legs. Normal speech. PSYCHIATRIC: Appropriate mood and affect; insight and judgment normal. Data Data Last Documented VS Vital Signs Date Time Temp Pulse Resp B/P (MAP) Pulse Ox O2 Delivery O2 Flow Rate FiO2 07/17/17 15:23 97 Nasal Cannula 2.00 07/17/17 13:10 98.6 108 20 155/86 (109) Orders Orders Complete Blood Count With Diff (07/17/17 13:44) Basic Metabolic Panel (Bmp) (07/17/17 13:44) Chest, Pa & Lat (07/17/17 13:44) Iv Access Insert/Monitor (07/17/17 13:44) Ecg Monitoring (07/17/17 13:44) Oxygen Administration (07/17/17 13:44) Oximetry (07/17/17 13:44) Electrocardiogram (07/17/17 13:44) Influenzae A/B Antigen (07/17/17 13:44) Methylprednisolone So Succ Inj (Solumedr (07/17/17 15:30) Albuterol-Ipratropium Neb (Duoneb Neb) (07/17/17 15:30) Admit Order (Ed Use Only) (07/17/17 ) Masonry Supervisor / Telemetry [id number] (07/17/17 16:03) Vital Signs (Adult) Q4H (07/17/17 16:03) Diet Heart Healthy (07/17/17 Dinner) Activity Oob With Assistance (07/17/17 16:03) Labs Laboratory Tests Test 07/17/17 13:55 White Blood Count 5.8 TH/MM3 Red Blood Count 4.23 MIL/MM3 Hemoglobin 10.6 GM/DL Hematocrit 32.9 % Mean Corpuscular Volume 77.9 FL Mean Corpuscular Hemoglobin 25.1 PG Mean Corpuscular Hemoglobin Concent 32.2 % Red Cell Distribution Width 22.3 % Platelet Count 283 TH/MM3 Mean Platelet Volume 7.5 FL Neutrophils (%) (Auto) 45.7 % Lymphocytes (%) (Auto) 41.2 % Monocytes (%) (Auto) 11.6 % Eosinophils (%) (Auto) 0.7 % Basophils (%) (Auto) 0.8 % Neutrophils # (Auto) 2.6 TH/MM3 Lymphocytes # (Auto) 2.4 TH/MM3 Monocytes # (Auto) 0.7 TH/MM3 Eosinophils # (Auto) 0.0 TH/MM3 Basophils # (Auto) 0.0 TH/MM3 CBC Comment DIFF FINAL Differential Comment Blood Urea Nitrogen 15 MG/DL Creatinine 1.22 MG/DL Random Glucose 109 MG/DL Calcium Level 8.5 MG/DL Sodium Level 137 MEQ/L Potassium Level 4.7 MEQ/L Chloride Level 106 MEQ/L Carbon Dioxide Level 23.6 MEQ/L Anion Gap 7 MEQ/L Estimat Glomerular Filtration Rate 42 ML/MIN MDM Medical Decision Making Medical Screen Exam Complete: Yes Emergency Medical Condition: Yes Medical Record Reviewed: Yes Differential Diagnosis Pneumonia, influenza, COPD exacerbation, anemia Narrative Course CBC & BMP Diagram 07/17/17 13:55 Calcium Level 8.5 Chest x-ray shows no dense consolidation or acute disease No patient will be admitted for ongoing breathing treatments. She attempted ambulate to the bathroom however was unable to leave her room due to shortness of breath and a commode was provided. Upon return to her but she was tachypneic and slightly hypoxic with an O2 sat of 92% on 2 L nasal cannula. Case discussed with Dr. Baeza for [facility]. Diagnosis Primary Impression: Bronchitis Additional Impression: Respiratory distress Admitting Information Admitting Physician Requests: Observation Fabian Valencia MD Jul 17, 2017 15:39
[2017-07-17] MEDS ORDERED: guaiFENesin/CODEINE SYRUP 200 MG/20 MG/10 ML CUP PO ONE (16:15)
--- NOTE | 2017-07-17 16:30 | HHI.HP ---
HPI Service [facility] Hospitalists Primary Care Physician Abdi Hill MD Admission Diagnosis Bronchitis; Resp Distress Chief Complaint: cough and SOB x 2 weeks Travel History International Travel<30 Days: No Contact w/Intl Traveler <30 Da: No Traveled to Known Affected Are: No History of Present Illness This is a 81 year old female patient with a past medical history which includes DM on metformin, CAD s/p CABG 2002, COPD, HTN, hyperlipidemia, GERD and PAD s/p femoropopliteal bypass performed by Dr. Aviles 04/2017 complicated by infection requiring I&D. Patient recently DC from [facility] 07/12/2017. Patient presents to the ER at [facility] today with c/o cough. The patient today states the cough is terrible at night. Patient denies fevers, chills, SOB. Patient does report that she does suffer with bronchitis frequently at which time she usually requires a rescue inhaler. ER provider was going to DC patient then patient became dyspneic with minimal exertion. It was decided to admit to observation. Review of Systems Constitutional: DENIES: Fever, Chills Respiratory: COMPLAINS OF: Cough Cardiovascular: DENIES: Chest pain Past Family Social History Past Medical History CAD s/p CABG 2001, COPD, HTN, hyperlipidemia, GERD and PAD s/p femoropopliteal bypass performed by Dr. Aviles 04/2017 complicated by infection requiring I&D. Past Surgical History CABG 2001, femoropopliteal bypass performed by Dr. Aviles 04/2017 complicated by infection requiring I&D, excision of basal cell carcinoma on back Reported Medications Xarelto (Rivaroxaban) 15 Mg Tab 15 Mg PO Q12HR Metformin (Metformin HCl) 500 Mg Tab 500 Mg PO DAILY With a meal Potassium Chloride ER (Potassium Chloride) 10 Meq Cap 10 Meq PO DAILY Lisinopril 5 Mg Tab 5 Mg PO DAILY Furosemide 20 Mg Tab 20 Mg PO DAILY Lipitor (Atorvastatin Calcium) 40 Mg Tab 40 Mg PO HS Omeprazole 20 Mg Tab 20 Mg PO DAILY Metoprolol Tartrate 50 Mg Tab 50 Mg PO DAILY Isosorbide Mononitrate ER (Isosorbide Mononitrate) 120 Mg Zane 120 Mg PO DAILY Allergies: Uncoded Allergies: CRESTOR (Allergy, Severe, 11/23/11) EXTREME PAIN CALF OF LEGS Family History Positive for CAD Social History Lives alone Quit smoking 2001 prior to that smoked 1 to 1.5 PPD for 40- 45 years. Physical Exam Vital Signs Vital Signs Date Time Temp Pulse Resp B/P (MAP) Pulse Ox O2 Delivery O2 Flow Rate FiO2 07/17/17 16:10 98 18 144/75 (98) 99 Nasal Cannula 2.00 07/17/17 16:09 18 99 Nasal Cannula 2.00 07/17/17 16:09 98 Nasal Cannula 2.00 07/17/17 15:23 97 Nasal Cannula 2.00 07/17/17 13:10 98.6 108 20 155/86 (109) 97 Physical Exam GENERAL: This is an elderly 81 year old female patient SKIN: scattered ecchymoses bilateral upper extremities. Left upper leg healing stapled incision HEAD: Atraumatic. Normocephalic. No temporal or scalp tenderness. EYES: Extraocular motions intact. No scleral icterus. No injection or drainage. CARDIOVASCULAR: Regular rate and rhythm RESPIRATORY: course rhonchi through out GASTROINTESTINAL: Abdomen soft, non-tender, nondistended. No hepato-splenomegaly , or palpable masses. No guarding. MUSCULOSKELETAL: Extremities 3+ pitting edema bilaterally. No calf tenderness. Negative Homans sign bilaterally. NEUROLOGICAL: Awake and alert. No focal deficits. Motor and sensory grossly within normal limits. 4-5 out of 5 muscle strength in all muscle groups. Normal speech. Laboratory Laboratory Tests Test 07/17/17 13:55 White Blood Count 5.8 Red Blood Count 4.23 Hemoglobin 10.6 Hematocrit 32.9 Mean Corpuscular Volume 77.9 Mean Corpuscular Hemoglobin 25.1 Mean Corpuscular Hemoglobin Concent 32.2 Red Cell Distribution Width 22.3 Platelet Count 283 Mean Platelet Volume 7.5 Neutrophils (%) (Auto) 45.7 Lymphocytes (%) (Auto) 41.2 Monocytes (%) (Auto) 11.6 Eosinophils (%) (Auto) 0.7 Basophils (%) (Auto) 0.8 Neutrophils # (Auto) 2.6 Lymphocytes # (Auto) 2.4 Monocytes # (Auto) 0.7 Eosinophils # (Auto) 0.0 Basophils # (Auto) 0.0 CBC Comment DIFF FINAL Differential Comment Blood Urea Nitrogen 15 Creatinine 1.22 Random Glucose 109 Calcium Level 8.5 Sodium Level 137 Potassium Level 4.7 Chloride Level 106 Carbon Dioxide Level 23.6 Anion Gap 7 Estimat Glomerular Filtration Rate 42 Date/Time Source Procedure Growth Status 07/17/17 14:36 Nasal Washing Influenza Types A,B Antigen ([facility]) - Final NEGATIVE FOR FLU A AND B ANTIGEN.... Complete Result Diagram: 07/17/17 1355 07/17/17 1355 Caprin VTE Risk Assessment Caprin VTE Risk Assessment: Mod/High Risk (score >= 2) Caprini Risk Assessment Model Point Value = 1 Point Value = 2 Point Value = 3 Point Value = 5 Age 41-60 Minor surgery BMI > 25 kg/m2 Swollen legs Varicose veins or History of unexplained or recurrent spontaneous Oral contraceptives or hormone replacement Sepsis (< 1 month) Serious lung disease, including pneumonia (< 1 month) Abnormal pulmonary function Acute myocardial infarction Congestive heart failure (< 1 month) History of inflammatory bowel disease Medical patient at bed rest Age 61-74 Arthroscopic surgery Major open surgery (> 45 min) Laparoscopic surgery (> 45 min) Malignancy Confined to bed (> 72 hours) Immobilizing plaster cast Central venous access Age >= 75 History of VTE Family history of VTE Factor V Leiden Prothrombin [id number] Lupus anticoagulant Anticardiolipin antibodies Elevated serum homocysteine Heparin-induced thrombocytopenia Other congenital or acquired thrombophilia Stroke (< 1 month) Elective arthroplasty Hip, pelvis, or leg fracture Acute spinal cord injury (< 1 month) Prophylaxis Regimen Total Risk Factor Score Risk Level Prophylaxis Regimen 0-1 Low Early ambulation 2 Moderate Order ONE of the following: *Sequential Compression Device (SCD) *Heparin 5000 units SQ BID 3-4 Higher Order ONE of the following medications: *Heparin 5000 units SQ TID *Enoxaparin/Lovenox 40 mg SQ daily (WT < 150 kg, CrCl > 30 mL/min) *Enoxaparin/Lovenox 30 mg SQ daily (WT < 150 kg, CrCl > 10-29 mL/min) *Enoxaparin/Lovenox 30 mg SQ BID (WT < 150 kg, CrCl > 30 mL/min) AND/OR *Sequential Compression Device (SCD) 5 or more Highest Order ONE of the following medications: *Heparin 5000 units SQ TID (Preferred with Epidurals) *Enoxaparin/Lovenox 40 mg SQ daily (WT < 150 kg, CrCl > 30 mL/min) *Enoxaparin/Lovenox 30 mg SQ daily (WT < 150 kg, CrCl > 10-29 mL/min) *Enoxaparin/Lovenox 30 mg SQ BID (WT < 150 kg, CrCl > 30 mL/min) AND *Sequential Compression Device (SCD) Assessment and Plan Problem List: (1) COPD exacerbation ICD Codes: J44.1 - Chronic obstructive pulmonary disease with (acute) exacerbation Plan: cough consistent with COPD exacerbation This is a 81 year old female patient with a past medical history which includes CAD s/p CABG 2001, COPD, HTN, hyperlipidemia, GERD and PAD s/p femoropopliteal bypass performed by Dr. Aviles 04/2017 complicated by infection requiring I&D. Patient recently DC from [facility] 07/12/2017. Patient presents to the ER at [facility] today with c/o cough. The patient today states the cough is terrible at night. Patient denies fevers, chills, SOB. Patient does report that she does suffer with bronchitis frequently at which time she usually requires a rescue inhaler. Will start solu medrol Start Symbicort CXR with no acute abnormality or significant interval change Duo nebs Q4H while awake and PRN supplemental oxygen to maintain saturation > or equal to 92% repeat CXR PA/LAT in AM (2) Fluid overload ICD Codes: E87.70 - Fluid overload, unspecified Plan: Lasix 40 mg IV BID external female catheter repeat CXR in AM (3) PAD (peripheral artery disease) ICD Codes: I73.9 - Peripheral vascular disease, unspecified Plan: PAD s/p femoropopliteal bypass performed by Dr. Aviles 04/2017 complicated by infection requiring I&D Patient to follow up with Dr. Aviles after DC (4) CAD (coronary artery disease) ICD Codes: I25.10 - Atherosclerotic heart disease of [place] coronary artery without angina pectoris Plan: Continue patient's home Lipitor 40 mg PO QHS and Isosorbide 120 mg PO daily (5) Hypertension ICD Codes: I10 - Hypertension Status: Acute Plan: Continue patient's home Lisinopril 5 mg PO daily Continue home metoprolol 50 my PO BID Monitor trend (6) Hyperlipidemia ICD Codes: E78.5 - Hyperlipidemia Status: Acute Plan: Continue home Simvastatin (7) GERD (gastroesophageal reflux disease) ICD Codes: K21.9 - GERD (gastroesophageal reflux disease) Status: Acute (8) Diabetes mellitus ICD Codes: E11.9 - Type 2 diabetes mellitus without complications Status: Chronic Plan: Continue patient's home metformin 500 mg daily diabetic diet accu check ACHS Assessment and Plan Patient examined. Assessment and plan formulated with Iman Dixon PA-C. I agree with the above. Problem Qualifiers (1) Diabetes mellitus: Qualified Codes: E11.8 - Type 2 diabetes mellitus with unspecified complications Iman Dixon Jul 17, 2017 16:29 Neri Baeza DO Jul 19, 2017 01:29
[2017-07-17] MEDS ORDERED: ACETAMINOPHEN 325 MG TAB PO PRN (17:00)
[2017-07-17] MEDS ORDERED: MAGNESIUM HYDROXIDE SUSP 30 ML CUP PO PRN (17:00)
[2017-07-17] MEDS ORDERED: ONDANSETRON HCL 4 MG/2 ML VIAL IVP PRN (17:00)
[2017-07-17] MEDS ORDERED: NALOXONE HCL 0.4 MG/ML AMP IV PUSH PRN (17:00)
[2017-07-17] MEDS ORDERED: SODIUM CHLORIDE 0.9% FLUSH 10 ML FLUSH IV FLUSH PRN (17:00)
[2017-07-17] MEDS ORDERED: XARE20TA PO (17:03)
[2017-07-17] MEDS: RESP: ALBUTEROL 2.5 MG/IPRATROPIUM 0.5 MG NEB (PRN) NEB (17:38)
[2017-07-17] MEDS: FUROSEMIDE 40 MG/4 ML VIAL IV PUSH SCH (18:25)
[2017-07-17] MEDS: guaiFENesin/CODEINE SYRUP 200 MG/20 MG/10 ML CUP PO PRN (19:26)
[2017-07-17] MEDS: RESP: ALBUTEROL 2.5 MG/IPRATROPIUM 0.5 MG NEB (SCH) NEB (19:55)
[2017-07-17] MEDS ORDERED: RESP: ALBUTEROL 2.5 MG/IPRATROPIUM 0.5 MG NEB (SCH) NEB (20:00)
[2017-07-17] MEDS ORDERED: DEXTROSE 50% IN WATER 50 ML VIAL(D50) IV PUSH PRN (20:30)
[2017-07-17] MEDS ORDERED: GLUCAGON 1 MG/ML VIAL OTHER PRN (20:30)
[2017-07-17] MEDS: SODIUM CHLORIDE 0.9% FLUSH 10 ML FLUSH IV FLUSH SCH (21:30)
[2017-07-17] MEDS: ATORVASTATIN 40 MG TAB PO SCH (21:31)
[2017-07-17] MEDS: METOPROLOL TARTRATE 50 MG TAB PO SCH (21:31)
[2017-07-17] MEDS: MEDIUM DOSE INSULIN NOVOLOG SUPPLEMENTAL SCALE SQ SCH (21:32)
[2017-07-18] VITALS (8 sets, daily range): BP systolic 101–153; BP diastolic 55–76; PULSE 61–93; RESP 18–20; TEMP 97.7–98.5; O2SAT 93–99
[2017-07-18] MEDS: methylPREDNISolone SOD SUCC 125 MG/2 ML VIAL IV PUSH SCH ×4 (00:04→17:29)
[2017-07-18] MEDS: MEDIUM DOSE INSULIN NOVOLOG SUPPLEMENTAL SCALE SQ SCH ×4 (08:00→20:22)
[2017-07-18 08:57] LABS: AUTOMATED NEUTROPHIL # 2.6 TH/MM3 (1.8-7.7); BASOPHIL % 0.2 % (0.0-2.0); HEMOGLOBIN 10.8 GM/DL (11.6-15.3); LYMPH % 32.7 % (9.0-44.0); LYMPHOCYTE # 1.3 TH/MM3 (1.0-4.8); MEAN CELL VOLUME 77.4 FL (80.0-100.0); MEAN CORPUSCULAR HEMOGLOBIN 25.2 PG (27.0-34.0); MEAN CORPUSCULAR HGB CONC 32.6 % (32.0-36.0); MEAN PLATELET VOLUME 7.4 FL (7.0-11.0); MONOCYTE # 0.2 TH/MM3 (0-0.9); NEUT % 63.1 % (16.0-70.0); PLATELET COUNT 263 TH/MM3 (150-450); RED BLOOD COUNT 4.27 MIL/MM3 (4.00-5.30); RED CELL DISTRIBUTION WIDTH 22.2 % (11.6-17.2); WHITE BLOOD COUNT 4.1 TH/MM3 (4.0-11.0)
[2017-07-18] MEDS: RESP: ALBUTEROL 2.5 MG/IPRATROPIUM 0.5 MG NEB (SCH) NEB ×4 (09:20→20:26)
[2017-07-18 09:21] LABS: BICARBONATE 25.6 MEQ/L (21.0-32.0); CREATININE 0.99 MG/DL (0.50-1.00)
[2017-07-18] MEDS: SODIUM CHLORIDE 0.9% FLUSH 10 ML FLUSH IV FLUSH SCH ×2 (09:27→20:22)
[2017-07-18] MEDS: LISINOPRIL 5 MG TAB PO SCH (09:28)
[2017-07-18] MEDS: RIVAROXABAN 20 MG TAB PO SCH (09:28)
[2017-07-18] MEDS: ISOSORBIDE MONONITRATE 60 MG CR TAB (IMDUR) PO SCH (09:28)
[2017-07-18] MEDS: METOPROLOL TARTRATE 50 MG TAB PO SCH ×2 (09:28→20:22)
[2017-07-18] MEDS: PANTOPRAZOLE SOD 20 MG DELAYED RELEASE TAB PO SCH (09:28)
[2017-07-18] MEDS: FUROSEMIDE 40 MG/4 ML VIAL IV PUSH SCH ×2 (09:28→17:28)
[2017-07-18] MEDS: metFORMIN HCL 500 MG TAB PO SCH (09:29)
--- NOTE | 2017-07-18 09:48 | RADRPT ---
EXAM DATE/TIME: 07/18/2017 08:48 [place] COMPARISON: CHEST SINGLE AP, April 27, 2014, 14:44. CHEST PA & LAT, July 17, 2017, 13:59. INDICATIONS : Cough MEDICAL HISTORY : Bronchitis SURGICAL HISTORY : CABG. ENCOUNTER: Subsequent ACUITY: 2 weeks PAIN SCORE: 0/10 LOCATION: chest FINDINGS: Submaximal inspiration. Mild indistinctness of the central bronchopulmonary markings, similar to sylvie or. No focal infiltrate seen. Both hemidiaphragms are well delineated. Prior median sternotomy and valve replacement. CONCLUSION: Stable appearance with mild central engorgement of the central vessels. Armando Wright MD on July 18, 2017 at 9:45 Board Certified Radiologist. This report was verified electronically.
[2017-07-18] MEDS ORDERED: PNEUMOCOCCAL POLYVALENT INJ 25 MCG/0.5 ML SYR IM ONE (10:00)
--- NOTE | 2017-07-18 13:15 | HHI.PR ---
Subjective Remarks Patient reports feeling a little better today. Patient continues to have severe cough Objective Vitals Vital Signs Date Time Temp Pulse Resp B/P (MAP) Pulse Ox O2 Delivery O2 Flow Rate FiO2 07/18/17 09:21 Nasal Cannula 2.00 07/18/17 08:00 97.9 63 20 145/68 (93) 97 07/18/17 04:12 76 07/18/17 04:00 97.7 81 18 153/76 (101) 99 07/18/17 00:00 Nasal Cannula 2.00 07/18/17 00:00 76 07/18/17 00:00 98.2 74 18 138/72 (94) 96 07/17/17 20:00 91 07/17/17 20:00 Nasal Cannula 2.00 07/17/17 20:00 98.8 97 18 129/60 (83) 96 07/17/17 18:43 Nasal Cannula 2.00 07/17/17 18:01 98.7 94 20 153/70 (97) 96 07/17/17 17:38 91 Nasal Cannula 3.00 07/17/17 16:10 98 18 144/75 (98) 99 Nasal Cannula 2.00 07/17/17 16:09 18 99 Nasal Cannula 2.00 07/17/17 16:09 98 Nasal Cannula 2.00 07/17/17 15:23 97 Nasal Cannula 2.00 07/17/17 13:10 98.6 108 20 155/86 (109) 97 Result Diagram: 07/18/17 0723 07/18/17 0733 Other Results Laboratory Tests Test 07/17/17 13:55 07/18/17 07:23 07/18/17 07:33 White Blood Count 5.8 TH/MM3 4.1 TH/MM3 Red Blood Count 4.23 MIL/MM3 4.27 MIL/MM3 Hemoglobin 10.6 GM/DL 10.8 GM/DL Hematocrit 32.9 % 33.0 % Mean Corpuscular Volume 77.9 FL 77.4 FL Mean Corpuscular Hemoglobin 25.1 PG 25.2 PG Mean Corpuscular Hemoglobin Concent 32.2 % 32.6 % Red Cell Distribution Width 22.3 % 22.2 % Platelet Count 283 TH/MM3 263 TH/MM3 Mean Platelet Volume 7.5 FL 7.4 FL Neutrophils (%) (Auto) 45.7 % 63.1 % Lymphocytes (%) (Auto) 41.2 % 32.7 % Monocytes (%) (Auto) 11.6 % 4.0 % Eosinophils (%) (Auto) 0.7 % 0.0 % Basophils (%) (Auto) 0.8 % 0.2 % Neutrophils # (Auto) 2.6 TH/MM3 2.6 TH/MM3 Lymphocytes # (Auto) 2.4 TH/MM3 1.3 TH/MM3 Monocytes # (Auto) 0.7 TH/MM3 0.2 TH/MM3 Eosinophils # (Auto) 0.0 TH/MM3 0.0 TH/MM3 Basophils # (Auto) 0.0 TH/MM3 0.0 TH/MM3 CBC Comment DIFF FINAL DIFF FINAL Differential Comment Blood Urea Nitrogen 15 MG/DL 16 MG/DL Creatinine 1.22 MG/DL 0.99 MG/DL Random Glucose 109 MG/DL 144 MG/DL Calcium Level 8.5 MG/DL 9.0 MG/DL Sodium Level 137 MEQ/L 142 MEQ/L Potassium Level 4.7 MEQ/L 4.3 MEQ/L Chloride Level 106 MEQ/L 108 MEQ/L Carbon Dioxide Level 23.6 MEQ/L 25.6 MEQ/L Anion Gap 7 MEQ/L 8 MEQ/L Estimat Glomerular Filtration Rate 42 ML/MIN 54 ML/MIN Imaging Last Impressions Chest X-Ray 07/18/17 0800 Signed Impressions: Service Date/Time: Tuesday, July 18, 2017 08:48 - CONCLUSION: Stable appearance with mild central engorgement of the central vessels. Armando Wright MD Objective Remarks GENERAL: This is an elderly 81 year old female patient SKIN: scattered ecchymoses bilateral upper extremities. Left upper leg stapled incision beginning to open with purulent drainage present CARDIOVASCULAR: Regular rate and rhythm RESPIRATORY: GASTROINTESTINAL: Abdomen soft, non-tender, nondistended. No hepato-splenomegaly , or palpable masses. No guarding. MUSCULOSKELETAL: Extremities 2+ pitting edema bilaterally. No calf tenderness. Negative Homans sign bilaterally. NEUROLOGICAL: Awake and alert. No focal deficits. Motor and sensory grossly within normal limits. 4-5 out of 5 muscle strength in all muscle groups. Normal speech. Procedures none A/P Problem List: (1) COPD exacerbation ICD Codes: J44.1 - Chronic obstructive pulmonary disease with (acute) exacerbation Plan: cough consistent with COPD exacerbation This is a 81 year old female patient with a past medical history which includes CAD s/p CABG 2001, COPD, HTN, hyperlipidemia, GERD and PAD s/p femoropopliteal bypass performed by Dr. Aviles 04/2017 complicated by infection requiring I&D. Patient recently DC from [facility] 07/12/2017. [place] [facility] [place]. The patient today states the cough is terrible at night. Patient denies fevers, chills, SOB. Patient does report that she does suffer with bronchitis frequently at which time she usually requires a rescue inhaler. Continue solu medrol 60 mg Q6H Continue Symbicort CXR (07/17) with no acute abnormality or significant interval change repeat CXR (07/18) Stable appearance with mild central engorgement if the central vessels Duo nebs Q4H while awake and PRN supplemental oxygen to maintain saturation > or equal to 92% (2) Fluid overload ICD Codes: E87.70 - Fluid overload, unspecified Plan: Patient has put out 1,900 ml after 2 doses Lasix IV Continue Lasix 40 mg IV BID external female catheter repeat BMP in AM (3) Open wound of left thigh ICD Codes: S71.102A - Unspecified open wound, left thigh, initial encounter Plan: PAD s/p femoropopliteal bypass performed by Dr. Aviles 05/21/2017 complicated by infection requiring hospitalization 06/16/17 - 06/25/17 Culture at that time grew MSSA and Pseudomonas patient was DC to rehab on IV Zosyn patient then readmitted to [facility] 07/09/17 underwent a incision, debridement and drainage of left thigh wound. Surgical wounds were negative Patient DC on Doxycycline 100 mg PO BID for 4 weeks and Levaquin 500 mg PO daily for 28 days. Patient stopped taking these 07/16/17 due to GI upset Wound culture obtained, BC x 2 requested, UA C&S stool for C diff requested Discussed case with Vascular surgery Dr. Berger who will see the patient Start patient on Vancomycin and Zosyn Consult I&D for further assistance repeat CBC in AM (4) PAD (peripheral artery disease) ICD Codes: I73.9 - Peripheral vascular disease, unspecified Plan: PAD s/p femoropopliteal bypass performed by Dr. Aviles 04/2017 complicated by infection requiring I&D see above (5) CAD (coronary artery disease) ICD Codes: I25.10 - Atherosclerotic heart disease of [place] coronary artery without angina pectoris Plan: Continue patient's home Lipitor 40 mg PO QHS and Isosorbide 120 mg PO daily (6) Hypertension ICD Codes: I10 - Hypertension Status: Acute Plan: Continue patient's home Lisinopril 5 mg PO daily Continue home metoprolol 50 my PO BID Monitor trend (7) Hyperlipidemia ICD Codes: E78.5 - Hyperlipidemia Status: Acute Plan: Continue home Simvastatin (8) GERD (gastroesophageal reflux disease) ICD Codes: K21.9 - GERD (gastroesophageal reflux disease) Status: Acute (9) Diabetes mellitus ICD Codes: E11.9 - Type 2 diabetes mellitus without complications Status: Chronic Plan: Continue patient's home metformin 500 mg daily diabetic diet accu check ACHS monitor closely as patient may have hyperglycemia while on steroids Assessment and Plan Patient examined. Assessment and plan formulated with Iman Dixon PA-C. I agree with the above. Problem Qualifiers (1) Diabetes mellitus: Qualified Codes: E11.8 - Type 2 diabetes mellitus with unspecified complications Iman Dixon Jul 18, 2017 13:15 Neri Baeza DO Jul 19, 2017 01:28
--- NOTE | 2017-07-18 14:47 | EKG ---
Date Performed: 07/17/2017 Time Performed: 19:12:02 PTAGE: 81 years EKG: Sinus rhythm WITH FREQUENT SUPRAVENTRICULAR PREMATURE COMPLEXES INTRAVENTRICULAR CONDUCTION DELAY CONSIDER INFERI OR MYOCARDIAL INFARCTION, AGE INDETERMINATE Right bundle branch block ABNORMAL ECG PREVIOUS TRACING : 07/17/2017 13.50 DOCTOR: Sahil Camarena Interpretating Date/Time 07/18/2017 14:46:13
--- NOTE | 2017-07-18 14:47 | EKG ---
Date Performed: 07/17/2017 Time Performed: 13:50:40 PTAGE: 81 years EKG: Sinus rhythm WITH OCCASIONAL SUPRAVENTRICULAR PREMATURE COMPLEXES INTRAVENTRICULAR CONDUCTION DELAY CONSIDER INFE RIOR MYOCARDIAL INFARCTION, AGE INDETERMINATE Right bundle branch block ABNORMAL ECG PREVIOUS TRACING : 04/27/2014 20.31 DOCTOR: Sahil Camarena Interpretating Date/Time 07/18/2017 14:45:55
[2017-07-18] MEDS: NYSTATIN 100,000 U/GM PWD 15 GM BTL TOPICAL SCH ×2 (15:30→20:21)
[2017-07-18] MEDS ORDERED: Vancomycin Consult Pharmacy 1 EA OTHER SCH (16:00)
[2017-07-18] MEDS ORDERED: VANCOMYCIN INJ 1,000 MG in SODIUM CHLOR 0.9% 250 ML INJ 250 ML IV SCH (16:00)
[2017-07-18 16:45] LABS: BACTERIA, URINE OCC /hpf; BILIRUBIN, URINE NEG (NEG); BLOOD, URINE NEG (NEG); GLUCOSE,URINE NEG (NEG); HYALINE CAST, URINE 7 /lpf (RARE); KETONE, URINE NEG (NEG); MUCUS URINE FEW /lpf (OCC); NITRITE,URINE NEG (NEG); PH, URINE 5.5 (5.0-8.5); SQUAMOUS EPITHELIAL CELL URINE 1 /hpf (0-5); URINE COLOR YELLOW (YELLW/STRAW); URINE LEUKOCYTE ESTERASE LARGE (NEG)
[2017-07-18] MEDS: PIPERACIL-TAZO 3.375 GM PREMIX 50 ML IV SCH ×2 (17:28→22:09)
[2017-07-18] MEDS: guaiFENesin/CODEINE SYRUP 200 MG/20 MG/10 ML CUP PO PRN (17:38)
[2017-07-18] MEDS: ATORVASTATIN 40 MG TAB PO SCH (20:22)
[2017-07-19] VITALS (15 sets, daily range): BP systolic 92–154; BP diastolic 50–65; PULSE 64–83; RESP 16–20; TEMP 97.5–98.2; O2SAT 94–97
[2017-07-19] MEDS: methylPREDNISolone SOD SUCC 125 MG/2 ML VIAL IV PUSH SCH ×5 (00:02→23:14)
[2017-07-19] MEDS: guaiFENesin/CODEINE SYRUP 200 MG/20 MG/10 ML CUP PO PRN ×3 (01:28→23:15)
[2017-07-19] MEDS: PIPERACIL-TAZO 3.375 GM PREMIX 50 ML IV SCH ×4 (03:42→23:14)
[2017-07-19] MEDS: NYSTATIN 100,000 U/GM PWD 15 GM BTL TOPICAL SCH ×3 (03:42→21:05)
--- NOTE | 2017-07-19 07:01 | PD.VS.CON ---
History of Present Illness Chief Complaint: L LE surgical wound infection Consult Requested by: Dr. Baeza History of Present Illness 81 yo female who underwent L LE bypass in Apr at outside facility. She was then re-admitted there in mid-May and found to have infection of thigh wound, and according to the records was septic, although this is unclear from the patient's history. She was taken to the OR on 07/09/17 for I&D of the L thigh wound. Cultures revealed MSSA and pseudomonas but no graft infection was identified according to the operative note. The patient has been on antibiotics and has no L LE complaints related to her bypass. She does have edema that is being well treated with diuretic. She is admitted for a COPD exacerbation. Past/Family/Social History Past Medical History CAD PAD XOL HTN skin CA COPD - new diagnosis for patient Past Surgical History CABG 2001 L LE bypass Apr I&D Jul 2017 excision skin CA Family History NC Home Medications Reported Medications Rivaroxaban (Xarelto) 20 Mg Tab, 20 MG PO DAILY for Blood Clot Prevention, TAB 0 Refills 07/17/17 Metformin (Metformin) 500 Mg Tab, 500 MG PO DAILY for Blood Sugar Management, # 30 TAB 0 Refills With a meal 01/15/17 Potassium Chloride ER (Potassium Chloride ER) 10 Meq Cap, 10 MEQ PO DAILY for Electrolyte Replacement, #30 CAP 0 Refills 06/09/16 Lisinopril (Lisinopril) 5 Mg Tab, 5 MG PO DAILY for Blood Pressure Management, TAB 0 Refills 06/08/16 Furosemide (Furosemide) 20 Mg Tab, 20 MG PO DAILY, TAB 0 Refills 06/08/16 Atorvastatin (Lipitor) 40 Mg Tab, 40 MG PO HS for Cholesterol Management, TAB 0 Refills 06/08/16 Omeprazole (Omeprazole) 20 Mg Tab, 20 MG PO DAILY, TAB 0 Refills 06/08/16 Metoprolol Tartrate (Metoprolol Tartrate) 50 Mg Tab, 50 MG PO BID, TAB 0 Refills 06/08/16 Isosorbide Mononitrate ER (Isosorbide Mononitrate ER) 120 Mg Zane, 120 MG PO DAILY for Prevent Chest Pain, TAB 0 Refills 06/08/16 Discontinued Reported Medications Nitroglycerin SL (Nitrostat SL) 0.4 Mg Subl, 0.4 MG SL DIRECTED Y for CHEST PAIN, TAB.SL 0 Refills 1 tablet under the tongue as needed for chest pain. Repeat every 5 minutes for a total of 3 DOSES or call 911 if NO relief. 06/08/16 Albuterol 8.5 GM Inh (Proair Hfa 8.5 GM Inh) 90 Mcg/Act Aer, 1 PUFF INH Q4H Y for SHORTNESS OF BREATH, INHALER 0 Refills 108 mcg/actuation 06/08/16 Uncoded Allergies: CRESTOR (Allergy, Severe, 11/23/11) EXTREME PAIN CALF OF LEGS Review of Systems Respiratory: COMPLAINS OF: Cough, Sputum production, Shortness of breath Musculoskeletal: COMPLAINS OF: Muscle aches, Joint Swelling Physical Exam Vitals/I&O Date Time Temp Pulse Resp B/P (MAP) Pulse Ox O2 Delivery O2 Flow Rate FiO2 07/19/17 05:00 102/60 (74) 07/19/17 03:56 Nasal Cannula 2.00 07/19/17 03:56 81 07/19/17 03:47 98.1 68 16 92/50 (64) 95 07/19/17 00:00 83 07/19/17 00:00 Nasal Cannula 2.00 07/19/17 00:00 97.5 70 20 102/53 (69) 95 07/18/17 20:28 94 Nasal Cannula 2.00 07/18/17 20:00 98.5 76 20 113/55 (74) 93 07/18/17 20:00 75 07/18/17 20:00 Nasal Cannula 2.00 07/18/17 18:00 Nasal Cannula 2.00 07/18/17 16:30 Nasal Cannula 2.00 07/18/17 16:00 98.1 93 20 122/76 (91) 96 07/18/17 16:00 89 07/18/17 12:00 84 07/18/17 12:00 Nasal Cannula 2.00 07/18/17 12:00 97.9 74 20 101/56 (71) 95 07/18/17 09:30 Nasal Cannula 2.00 07/18/17 09:21 Nasal Cannula 2.00 07/18/17 08:00 97.9 63 20 145/68 (93) 97 07/18/17 08:00 61 Neuro: alert, oriented, conversant HEENT: NC/AT Neck: no JVD Heart: reg rate Lungs: + rhonchi B Abdomen: obese, NT Vascular: palpable pedal pulses Extremities: minimal edema, evidence of prior edema by skin changes Lower LEFT thigh incision with fullness but no break in skin integrity + purulence but only minimal tender to palpation no barry-incisional erythema Laboratory Tests Test 07/18/17 07:23 07/18/17 07:33 07/18/17 16:20 White Blood Count 4.1 Red Blood Count 4.27 Hemoglobin 10.8 Hematocrit 33.0 Mean Corpuscular Volume 77.4 Mean Corpuscular Hemoglobin 25.2 Mean Corpuscular Hemoglobin Concent 32.6 Red Cell Distribution Width 22.2 Platelet Count 263 Mean Platelet Volume 7.4 Neutrophils (%) (Auto) 63.1 Lymphocytes (%) (Auto) 32.7 Monocytes (%) (Auto) 4.0 Eosinophils (%) (Auto) 0.0 Basophils (%) (Auto) 0.2 Neutrophils # (Auto) 2.6 Lymphocytes # (Auto) 1.3 Monocytes # (Auto) 0.2 Eosinophils # (Auto) 0.0 Basophils # (Auto) 0.0 CBC Comment DIFF FINAL Differential Comment Blood Urea Nitrogen 16 Creatinine 0.99 Random Glucose 144 Calcium Level 9.0 Sodium Level 142 Potassium Level 4.3 Chloride Level 108 Carbon Dioxide Level 25.6 Anion Gap 8 Estimat Glomerular Filtration Rate 54 Urine Color YELLOW Urine Turbidity CLEAR Urine pH 5.5 Urine Specific [place] 1.008 Urine Protein NEG Urine Glucose (UA) NEG Urine Ketones NEG Urine Occult Blood NEG Urine Nitrite NEG Urine Bilirubin NEG Urine Urobilinogen LESS THAN 2.0 Urine Leukocyte Esterase LARGE Urine RBC 2 Urine WBC 9 Urine Squamous Epithelial Cells 1 Urine Bacteria OCC Urine Hyaline Casts 7 Urine Mucus FEW Microscopic Urinalysis Comment CULTURE INDICATED Date/Time Source Procedure Growth Status 07/18/17 18:55 Blood Peripheral Aerobic Blood Culture Pending Received 07/18/17 18:55 Blood Peripheral Anaerobic Blood Culture Pending Received 07/17/17 14:36 Nasal Washing Influenza Types A,B Antigen (SUNNY) - Final NEGATIVE FOR FLU A AND B ANTIGEN.... Complete 07/18/17 16:20 Urine Random Urine Urine Culture Pending Received 07/18/17 15:30 Wound Thigh Gram Stain Pending Received 07/18/17 15:30 Wound Thigh Wound Culture Pending Received Last 48 hours Impressions Chest X-Ray 07/18/17 0800 Signed Impressions: Service Date/Time: Tuesday, July 18, 2017 08:48 - CONCLUSION: Stable appearance with mild central engorgement of the central vessels. Armando Wright MD Chest X-Ray 07/17/17 1344 Signed Impressions: Service Date/Time: Monday, July 17, 2017 13:59 - CONCLUSION: 1. No acute abnormality or significant interval change. Trent Tyson MD Assessment and Plan Plan Likely superficial infection of distal bypass surgical site. However, the culture data of pseudomonas is concerning and I think a CTA runoff is indicated to ensure the graft doesnt' appear infected. It is patent by physical examination. If the graft doesn't show evidence of infection on CT, then will only need local wound care (opening of a few andres and packing) and culture-directed antibiotics. Will address wound after I see the CTA. Mane Ramesh MD [facility] [employer] [facility] - Heart and Vascular Surgery at [facility] [phone] Mane Ramesh MD Jul 19, 2017 07:01
[2017-07-19] MEDS: MEDIUM DOSE INSULIN NOVOLOG SUPPLEMENTAL SCALE SQ SCH ×4 (09:24→21:02)
[2017-07-19] MEDS: metFORMIN HCL 500 MG TAB PO SCH (09:26)
[2017-07-19] MEDS: METOPROLOL TARTRATE 50 MG TAB PO SCH ×2 (09:26→23:14)
[2017-07-19] MEDS: LISINOPRIL 5 MG TAB PO SCH (09:26)
[2017-07-19] MEDS: ISOSORBIDE MONONITRATE 60 MG CR TAB (IMDUR) PO SCH (09:27)
[2017-07-19] MEDS: PANTOPRAZOLE SOD 20 MG DELAYED RELEASE TAB PO SCH (09:27)
[2017-07-19] MEDS: FUROSEMIDE 40 MG/4 ML VIAL IV PUSH SCH (09:28)
[2017-07-19] MEDS: SODIUM CHLORIDE 0.9% FLUSH 10 ML FLUSH IV FLUSH SCH ×2 (09:29→21:00)
[2017-07-19] MEDS: RIVAROXABAN 20 MG TAB PO SCH (09:29)
[2017-07-19] MEDS: RESP: ALBUTEROL 2.5 MG/IPRATROPIUM 0.5 MG NEB (SCH) NEB ×4 (09:52→20:31)
[2017-07-19 10:20] LABS: AUTOMATED NEUTROPHIL # 8.4 TH/MM3 (1.8-7.7); BASOPHIL % 0.1 % (0.0-2.0); HEMATOCRIT 33.5 % (35.0-46.0); HEMOGLOBIN 10.9 GM/DL (11.6-15.3); LYMPH % 13.5 % (9.0-44.0); LYMPHOCYTE # 1.3 TH/MM3 (1.0-4.8); MEAN CELL VOLUME 77.9 FL (80.0-100.0); MEAN CORPUSCULAR HEMOGLOBIN 25.3 PG (27.0-34.0); MEAN CORPUSCULAR HGB CONC 32.4 % (32.0-36.0); MEAN PLATELET VOLUME 7.7 FL (7.0-11.0); MONOCYTE # 0.2 TH/MM3 (0-0.9); NEUT % 84.4 % (16.0-70.0); PLATELET COUNT 284 TH/MM3 (150-450); RED BLOOD COUNT 4.31 MIL/MM3 (4.00-5.30); RED CELL DISTRIBUTION WIDTH 22.2 % (11.6-17.2); WHITE BLOOD COUNT 9.9 TH/MM3 (4.0-11.0)
[2017-07-19 10:53] LABS: BICARBONATE 25.6 MEQ/L (21.0-32.0); CALCIUM 8.6 MG/DL (8.5-10.1); CREATININE 1.43 MG/DL (0.50-1.00); MAGNESIUM 1.8 MG/DL (1.5-2.5)
[2017-07-19] MEDS ORDERED: VANCOMYCIN INJ 1,250 MG in SODIUM CHLOR 0.9% 250 ML INJ 250 ML IV SCH (12:00)
--- NOTE | 2017-07-19 13:18 | MB ---
cc: PHIL AREVALO MD DATE OF CONSULTATION 07/19/[address] Baeza REASON Wound infection of the left leg. Infected surgical wound. Recent history of MRSA and Pseudomonas. HISTORY OF PRESENT ILLNESS This is an 81-year-old white female who presented to the emergency department with cough and respiratory symptoms. The patient was noted to have surgical wound of the left thigh. She is status post femoral-popliteal bypass surgery in May of 2016 at [facility]. She was treated between 06/16/2017 and 06/25/2017 for infection of surgical wound due to MSSA and Pseudomonas postoperative. The initial surgery was on 05/21/2017. She was then discharged to rehab and then returned to [facility] again on 07/09 for an infected left thigh wound and she was had incision and debridement and then further antibiotic treatment. She was put on oral antibiotic and was taken due to follow up with Infectious Disease in 2 weeks from the date of 07/17. She has been on doxycycline for continued treatment of the left thigh wound. The patient has drainage coming from the wound which she has slightly dehisced and has andres still in place from I&D. She denies pain and she has no nausea or vomiting or fever or chills. She is afebrile and her white blood cell count is normal. The new culture has been taken from the wound and is pending. Blood cultures were also obtained in addition to urine culture. The ED report states that the patient developed shortness of breath on trying to ambulate to the bathroom. She was noted to be tachypneic and hypoxic. This consultation is requested for ID management of the wound infection. PAST MEDICAL HISTORY 1. Diabetes mellitus. 2. Hyperlipidemia. 3. Hypertension. 4. Coronary artery disease. 5. Gastroesophageal reflux disease. 6. Peripheral vascular disease. 7. History of coronary bypass graft surgery in 2001. 8. History of fem-pop bypass surgery in April 2017. 9. Wound infection of the surgical site with MSSA and Pseudomonas. 10. History of basal cell carcinoma. 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 Piperacillin/tazobactam. 2. Vancomycin. 3. Imdur. 4. Prinivil. 5. Glucophage. 6. Protonix. 7. Xarelto. 8. Methylprednisolone. 9. Lipitor. 10. Lopressor. 11. Insulin. 12. DuoNeb. 13. Lasix. SOCIAL HISTORY No tobacco. Rare alcohol. No illicit drugs. FAMILY HISTORY Noncontributory. REVIEW OF SYSTEMS Pertinent as mentioned above. Negative on 10-point review. PHYSICAL EXAMINATION General: She is a pleasant, well-developed female who is in no acute distress. She is awake and alert and oriented. Vital Signs: Temperature 97.8, BP 154/65, respirations 16, heart rate 79. Head, Ears, Nose And Throat: The head is atraumatic. Extraocular movements grossly intact. Pupils reactive to light. No icterus. No conjunctival erythema. Oropharynx - moist mucosa without lesions. Neck: Supple without adenopathy or swelling. Lungs: Rhonchi bilaterally. No accessory muscle use. HEART: slight systolic murmur at the left sternal border. No rubs or gallops. Abdomen: Obese, soft, no tenderness appreciated. Rectal: Not performed. Extremities: The patient has a surgical incision at the inner aspect of the thigh region which has andres in place. The incision is dehisced slightly and it has serous drainage coming from the mid-aspect. There are andres in place as well as sutures over the wound incision which is approximately 6 cm long. There is no erythema around the site. No tenderness on palpation. Skin: No diffuse rash. Neuro: There are no gross focal findings. Psych: The patient is pleasant, calm and cooperative. LABORATORY DATA Creatinine 1.43, estimated GFR 35, sodium 138. WBC 9.9, platelets 284, hemoglobin 10.9, 84% neutrophils. Urinalysis revealed a large amount of leukocyte esterase and 9 white cells. CHEST X-RAY Shows mild central engorgement of the central vessels. IMPRESSION 1. Postop wound infection of the left thigh. Prior culture with MSSA and Pseudomonas. Ongoing infection. Previous treatment with intravenous antibiotics followed by oral antibiotics. 2. Abnormal urinalysis indicating urinary tract infection. 3. Acute renal failure. RECOMMENDATIONS 1. Continue intravenous Zosyn. 2. Follow the wound culture for antibiotic adjustments. 3. Discontinue vancomycin in light of the acute renal failure. I would like to avoid further deterioration in renal function potentially that can occur with vancomycin. 4. Begin Cubicin adjusted for renal function. 5. Monitor clinical status. Thank you this consultation. The patient's progress will be followed and further recommendations will be given. Phil Arevalo MD FD/SSB /11:55 AM /12:47 PM MTDDonte
--- NOTE | 2017-07-19 14:35 | HHI.PR ---
Subjective Remarks Patient reports continued cough and overall feeling about the same Objective Vitals Vital Signs Date Time Temp Pulse Resp B/P (MAP) Pulse Ox O2 Delivery O2 Flow Rate FiO2 07/19/17 12:05 66 07/19/17 12:00 98.2 77 16 94/50 (65) 95 07/19/17 09:52 96 Nasal Cannula 2.00 07/19/17 09:13 79 154/65 (94) 07/19/17 08:30 Nasal Cannula 2.00 07/19/17 08:00 97.8 64 16 138/64 (88) 97 07/19/17 07:57 74 07/19/17 05:00 102/60 (74) 07/19/17 03:56 Nasal Cannula 2.00 07/19/17 03:56 81 07/19/17 03:47 98.1 68 16 92/50 (64) 95 07/19/17 00:00 83 07/19/17 00:00 Nasal Cannula 2.00 07/19/17 00:00 97.5 70 20 102/53 (69) 95 07/18/17 20:28 94 Nasal Cannula 2.00 07/18/17 20:00 98.5 76 20 113/55 (74) 93 07/18/17 20:00 75 07/18/17 20:00 Nasal Cannula 2.00 07/18/17 18:00 Nasal Cannula 2.00 07/18/17 16:30 Nasal Cannula 2.00 07/18/17 16:00 98.1 93 20 122/76 (91) 96 07/18/17 16:00 89 07/19/17 07/19/17 07/20/17 15:00 23:00 07:00 Intake Total 50 ml Balance 50 ml IV Total 50 ml Result Diagram: 07/19/1792207/19/17922 Other Results Laboratory Tests Test 07/17/17 13:55 07/18/17 07:23 07/18/17 07:33 07/18/17 16:20 White Blood Count 5.8 TH/MM3 4.1 TH/MM3 Red Blood Count 4.23 MIL/MM3 4.27 MIL/MM3 Hemoglobin 10.6 GM/DL 10.8 GM/DL Hematocrit 32.9 % 33.0 % Mean Corpuscular Volume 77.9 FL 77.4 FL Mean Corpuscular Hemoglobin 25.1 PG 25.2 PG Mean Corpuscular Hemoglobin Concent 32.2 % 32.6 % Red Cell Distribution Width 22.3 % 22.2 % Platelet Count 283 TH/MM3 263 TH/MM3 Mean Platelet Volume 7.5 FL 7.4 FL Neutrophils (%) (Auto) 45.7 % 63.1 % Lymphocytes (%) (Auto) 41.2 % 32.7 % Monocytes (%) (Auto) 11.6 % 4.0 % Eosinophils (%) (Auto) 0.7 % 0.0 % Basophils (%) (Auto) 0.8 % 0.2 % Neutrophils # (Auto) 2.6 TH/MM3 2.6 TH/MM3 Lymphocytes # (Auto) 2.4 TH/MM3 1.3 TH/MM3 Monocytes # (Auto) 0.7 TH/MM3 0.2 TH/MM3 Eosinophils # (Auto) 0.0 TH/MM3 0.0 TH/MM3 Basophils # (Auto) 0.0 TH/MM3 0.0 TH/MM3 CBC Comment DIFF FINAL DIFF FINAL Differential Comment Blood Urea Nitrogen 15 MG/DL 16 MG/DL Creatinine 1.22 MG/DL 0.99 MG/DL Random Glucose 109 MG/DL 144 MG/DL Calcium Level 8.5 MG/DL 9.0 MG/DL Sodium Level 137 MEQ/L 142 MEQ/L Potassium Level 4.7 MEQ/L 4.3 MEQ/L Chloride Level 106 MEQ/L 108 MEQ/L Carbon Dioxide Level 23.6 MEQ/L 25.6 MEQ/L Anion Gap 7 MEQ/L 8 MEQ/L Estimat Glomerular Filtration Rate 42 ML/MIN 54 ML/MIN Urine Color YELLOW Urine Turbidity CLEAR Urine pH 5.5 Urine Specific Caret 1.008 Urine Protein NEG mg/dL Urine Glucose (UA) NEG mg/dL Urine Ketones NEG mg/dL Urine Occult Blood NEG Urine Nitrite NEG Urine Bilirubin NEG Urine Urobilinogen LESS THAN 2.0 MG/DL Urine Leukocyte Esterase LARGE Urine RBC 2 /hpf Urine WBC 9 /hpf Urine Squamous Epithelial Cells 1 /hpf Urine Bacteria OCC /hpf Urine Hyaline Casts 7 /lpf Urine Mucus FEW /lpf Microscopic Urinalysis Comment CULTURE INDICATED Test 07/19/17 09:23 White Blood Count 9.9 TH/MM3 Red Blood Count 4.31 MIL/MM3 Hemoglobin 10.9 GM/DL Hematocrit 33.5 % Mean Corpuscular Volume 77.9 FL Mean Corpuscular Hemoglobin 25.3 PG Mean Corpuscular Hemoglobin Concent 32.4 % Red Cell Distribution Width 22.2 % Platelet Count 284 TH/MM3 Mean Platelet Volume 7.7 FL Neutrophils (%) (Auto) 84.4 % Lymphocytes (%) (Auto) 13.5 % Monocytes (%) (Auto) 2.0 % Eosinophils (%) (Auto) 0.0 % Basophils (%) (Auto) 0.1 % Neutrophils # (Auto) 8.4 TH/MM3 Lymphocytes # (Auto) 1.3 TH/MM3 Monocytes # (Auto) 0.2 TH/MM3 Eosinophils # (Auto) 0.0 TH/MM3 Basophils # (Auto) 0.0 TH/MM3 CBC Comment DIFF FINAL Differential Comment Blood Urea Nitrogen 32 MG/DL Creatinine 1.43 MG/DL Random Glucose 193 MG/DL Calcium Level 8.6 MG/DL Magnesium Level 1.8 MG/DL Sodium Level 138 MEQ/L Potassium Level 4.1 MEQ/L Chloride Level 103 MEQ/L Carbon Dioxide Level 25.6 MEQ/L Anion Gap 9 MEQ/L Estimat Glomerular Filtration Rate 35 ML/MIN Imaging Last Impressions Chest X-Ray 07/18/17 0800 Signed Impressions: Service Date/Time: Tuesday, July 18, 2017 08:48 - CONCLUSION: Stable appearance with mild central engorgement of the central vessels. Armando Wright MD Objective Remarks GENERAL: This is an elderly 81 year old female patient SKIN: scattered ecchymoses bilateral upper extremities. Left upper leg stapled incision beginning to open with purulent drainage present CARDIOVASCULAR: Regular rate and rhythm RESPIRATORY: coarse rhonchi through out GASTROINTESTINAL: Abdomen soft, non-tender, nondistended. No hepato-splenomegaly , or palpable masses. No guarding. MUSCULOSKELETAL: Extremities 2+ pitting edema bilaterally. No calf tenderness. Negative Homans sign bilaterally. NEUROLOGICAL: Awake and alert. No focal deficits. Motor and sensory grossly within normal limits. 4-5 out of 5 muscle strength in all muscle groups. Normal speech. Procedures none A/P Problem List: (1) COPD exacerbation ICD Codes: J44.1 - Chronic obstructive pulmonary disease with (acute) exacerbation Status: Acute Plan: cough consistent with COPD exacerbation This is a 81 year old female patient with a past medical history which includes CAD s/p CABG 2001, COPD, HTN, hyperlipidemia, GERD and PAD s/p femoropopliteal bypass performed by Dr. Aviles 04/2017 complicated by infection requiring I&D. Patient recently DC from [facility] 07/12/2017. Patient presents to the ER at [facility] today with c/o cough. The patient today states the cough is terrible at night. Patient denies fevers, chills, SOB. Patient does report that she does suffer with bronchitis frequently at which time she usually requires a rescue inhaler. Continue solu medrol 60 mg Q6H Continue Symbicort CXR (07/17) with no acute abnormality or significant interval change repeat CXR (07/18) Stable appearance with mild central engorgement if the central vessels Duo nebs Q4H while awake and PRN supplemental oxygen to maintain saturation > or equal to 92% (2) Fluid overload ICD Codes: E87.70 - Fluid overload, unspecified Status: Acute Plan: Patient has put out 1,900 ml after 2 doses Lasix IV Continue Lasix 40 mg IV BID external female catheter repeat BMP reveals BUN 32, creatinine 1.43, estimated GFR 35 Will DC lasix recheck BMP in AM (3) Open wound of left thigh ICD Codes: S71.102A - Unspecified open wound, left thigh, initial encounter Status: Acute Plan: PAD s/p femoropopliteal bypass performed by Dr. Aviles 05/21/2017 complicated by infection requiring hospitalization 06/16/17 - 06/25/17 Culture at that time grew MSSA and Pseudomonas patient was DC to rehab on IV Zosyn patient then readmitted to [facility] 07/09/17 underwent a incision, debridement and drainage of left thigh wound. Surgical wounds were negative Patient DC on Doxycycline 100 mg PO BID for 4 weeks and Levaquin 500 mg PO daily for 28 days. Patient stopped taking these 07/16/17 due to GI upset Wound culture obtained, BC x 2 requested, UA C&S stool for C diff requested Discussed case with Vascular surgery Dr. Berger who feels this is likely a superficial infection of distal bypass surgical site but recommending CTA with runoff to evaluate graft Start patient on Vancomycin and Zosyn Consult I&D, appreciate assistance continued Zosyn, DC Vancomycin, start Cubicin at renal dose (4) PAD (peripheral artery disease) ICD Codes: I73.9 - Peripheral vascular disease, unspecified Status: Chronic Plan: PAD s/p femoropopliteal bypass performed by Dr. Aviles 04/2017 complicated by infection requiring I&D see above (5) CAD (coronary artery disease) ICD Codes: I25.10 - Atherosclerotic heart disease of [place] coronary artery without angina pectoris Status: Chronic Plan: Continue patient's home Lipitor 40 mg PO QHS and Isosorbide 120 mg PO daily (6) Hypertension ICD Codes: I10 - Hypertension Status: Chronic Plan: Continue patient's home Lisinopril 5 mg PO daily Continue home metoprolol 50 my PO BID Monitor trend (7) Hyperlipidemia ICD Codes: E78.5 - Hyperlipidemia Status: Chronic Plan: Continue home Simvastatin (8) GERD (gastroesophageal reflux disease) ICD Codes: K21.9 - GERD (gastroesophageal reflux disease) Status: Chronic (9) Diabetes mellitus ICD Codes: E11.9 - Type 2 diabetes mellitus without complications Status: Chronic Plan: Continue patient's home metformin 500 mg daily diabetic diet accu check ACHS monitor closely as patient may have hyperglycemia while on steroids Assessment and Plan Patient examined. Assessment and plan formulated with Iman Dixon PA-C. I agree with the above. Problem Qualifiers (1) Diabetes mellitus: Qualified Codes: E11.8 - Type 2 diabetes mellitus with unspecified complications Iman Dixon Jul 19, 2017 14:35 Neri Baeza DO Jul 24, 2017 16:09
[2017-07-19] MEDS: DAPTOmycin INJ 360 MG in SODIUM CHLORIDE 0.9% INJ 100 ML IV SCH (14:58)
[2017-07-19] MEDS ORDERED: IOHEXOL 350 MG/ML 10 ML VIAL (for RAD DIAG) IVCONTRAST ONE (17:02)
[2017-07-19] MEDS: ATORVASTATIN 40 MG TAB PO SCH (21:02)
--- NOTE | 2017-07-19 23:13 | RADRPT ---
EXAM DATE/TIME: 07/19/2017 16:32 [place] COMPARISON: No previous studies available for comparison. INDICATIONS : Infected left fem-pop. IV CONTRAST: 80 cc Omnipaque 350 (iohexol) IV RADIATION DOSE: 7.02 CTDIvol (mGy) MEDICAL HISTORY : Cardiovascular disease. Hypertension. Diabetes mellitus type 1. SURGICAL HISTORY : CABG Abdominal aortic aneurysm repair. ENCOUNTER: Initial ACUITY: 1 day PAIN SCALE: 4/10 LOCATION: Left leg TECHNIQUE: Volumetric scanning was performed using a multi-row detector CT scanner. The data was post processed with a variety of visualization algorithms including full volume maximum intensity projection, multi -planar sliding thin slab reformation, curved planar reformation, and surface rendering techniques. Using automated exposure control and adjustment of the mA and/or kV according to patient size, radiat ion dose was kept as low as reasonably achievable to obtain optimal diagnostic quality images. DICO M format image data is available electronically for review and comparison. FINDINGS: Previous aortic aneurysm endograft repair. The endograft is widely patent. The aneurysm is resolved. Looking at the aortic visceral vessels, there is mild ostial stenosis involving the celiac. Severe pr oximal stenosis involving the SMA. Mild proximal disease involving the renal arteries. In the pelvis, the right hypogastric is occluded with reconstitution of its branch vessels. The left hypogastric is patent. The common femoral arteries are relatively healthy appearance and the profundas are patent l aterally. The [place] superficial femoral arteries are occluded bilaterally and there are bilateral fe moral to above knee popliteal bypasses which are patent throughout. Below the bypasses, the popliteal arteries are relatively healthy in appearance bilaterally and lead to tenuous calf runoff with 2 pat ent vessels on the right including a dominant peroneal and a small caliber posterior tibial artery. O n the left, the peroneal is patent throughout. The anterior and posterior tibial vessels are small in caliber and discontinuous distally. There is a small amount of fluid and induration around the proximal aspect of the graft on the left s leila. There is moderate fluid and induration around the distal graft at and just proximal to the anast omotic region with fluid tracking into the region of some medial distal thigh skin andres. Elsewhere on the exam, note is made of left renal cysts and diverticular involvement of the colon. CONCLUSION: No significant aortoiliac inflow lesions Patent bilateral femoral to above knee bypass conduits. Fluid in the indurated changes around the bypass distally on the left worrisome for infection as kayden cated clinically. Tenuous calf runoff bilaterally Leno Amaya MD on July 19, 2017 at 23:03 Board Certified Radiologist. This report was verified electronically.
[2017-07-20] VITALS (12 sets, daily range): BP systolic 100–131; BP diastolic 53–66; PULSE 69–96; RESP 16–20; TEMP 96.1–98.1; O2SAT 92–95
[2017-07-20] MEDS: PIPERACIL-TAZO 3.375 GM PREMIX 50 ML IV SCH ×4 (04:30→23:12)
[2017-07-20] MEDS: NYSTATIN 100,000 U/GM PWD 15 GM BTL TOPICAL SCH ×3 (05:16→21:20)
[2017-07-20] MEDS: methylPREDNISolone SOD SUCC 125 MG/2 ML VIAL IV PUSH SCH ×3 (05:16→18:11)
[2017-07-20] MEDS: RESP: ALBUTEROL 2.5 MG/IPRATROPIUM 0.5 MG NEB (SCH) NEB ×4 (07:47→19:38)
[2017-07-20 08:05] LABS: AUTOMATED NEUTROPHIL # 10.3 TH/MM3 (1.8-7.7); BASOPHIL % 0.1 % (0.0-2.0); HEMATOCRIT 33.1 % (35.0-46.0); HEMOGLOBIN 10.6 GM/DL (11.6-15.3); LYMPH % 9.3 % (9.0-44.0); LYMPHOCYTE # 1.1 TH/MM3 (1.0-4.8); MEAN CELL VOLUME 77.1 FL (80.0-100.0); MEAN CORPUSCULAR HEMOGLOBIN 24.6 PG (27.0-34.0); MEAN CORPUSCULAR HGB CONC 31.9 % (32.0-36.0); MEAN PLATELET VOLUME 7.4 FL (7.0-11.0); MONO % 2.8 % (0.0-8.0); MONOCYTE # 0.3 TH/MM3 (0-0.9); NEUT % 87.8 % (16.0-70.0); PLATELET COUNT 296 TH/MM3 (150-450); RED CELL DISTRIBUTION WIDTH 22.5 % (11.6-17.2); WHITE BLOOD COUNT 11.8 TH/MM3 (4.0-11.0)
[2017-07-20 08:44] LABS: BICARBONATE 25.5 MEQ/L (21.0-32.0); CALCIUM 8.6 MG/DL (8.5-10.1); CREATININE 1.49 MG/DL (0.50-1.00); MAGNESIUM 1.9 MG/DL (1.5-2.5)
[2017-07-20] MEDS: LISINOPRIL 5 MG TAB PO SCH (08:46)
[2017-07-20] MEDS: ISOSORBIDE MONONITRATE 60 MG CR TAB (IMDUR) PO SCH (08:46)
[2017-07-20] MEDS: PANTOPRAZOLE SOD 20 MG DELAYED RELEASE TAB PO SCH (08:47)
[2017-07-20] MEDS: RIVAROXABAN 20 MG TAB PO SCH (08:47)
[2017-07-20] MEDS: MEDIUM DOSE INSULIN NOVOLOG SUPPLEMENTAL SCALE SQ SCH ×4 (08:47→21:20)
[2017-07-20] MEDS: SODIUM CHLORIDE 0.9% FLUSH 10 ML FLUSH IV FLUSH SCH ×2 (08:47→21:20)
[2017-07-20] MEDS: METOPROLOL TARTRATE 50 MG TAB PO SCH ×2 (08:48→21:20)
--- NOTE | 2017-07-20 09:10 | HHI.PR ---
Subjective Remarks still coughing. Objective Vitals heart reg lung rhonci abd s/nt ext left inner thigh wound with andres..purulent drainage Vital Signs Date Time Temp Pulse Resp B/P (MAP) Pulse Ox O2 Delivery O2 Flow Rate FiO2 07/20/17 08:00 98.1 73 20 131/66 (87) 94 07/20/17 07:47 93 21 07/20/17 04:35 97.9 82 16 122/60 (80) 93 07/20/17 03:49 69 07/20/17 00:18 78 07/19/17 23:13 97.6 79 20 121/61 (81) 97 07/19/17 21:06 Nasal Cannula 2.00 07/19/17 20:31 96 Nasal Cannula 2.00 07/19/17 20:26 69 07/19/17 20:09 98.2 80 20 95/50 (65) 96 07/19/17 16:00 97.8 80 16 102/54 (70) 94 07/19/17 12:05 66 07/19/17 12:00 98.2 77 16 94/50 (65) 95 07/19/17 09:52 96 Nasal Cannula 2.00 07/19/17 09:13 79 154/65 (94) Result Diagram: 07/20/17 0746 07/20/17 0746 Imaging Last Impressions Chest X-Ray 07/18/17 0800 Signed Impressions: Service Date/Time: Tuesday, July 18, 2017 08:48 - CONCLUSION: Stable appearance with mild central engorgement of the central vessels. Armando Wright MD Procedures none A/P Problem List: (1) COPD exacerbation ICD Codes: J44.1 - Chronic obstructive pulmonary disease with (acute) exacerbation Status: Acute Plan: This is a 81 year old female patient with a past medical history which includes CAD s/p CABG 2001, COPD, HTN, hyperlipidemia, GERD and PAD s/p femoropopliteal bypass performed by Dr. Aviles 04/2017 complicated by infection requiring I&D. Patient recently DC from [facility] 07/12/2017. Patient presents to the ER at [facility] today with c/o cough. copd exacerbation solumedrol/nebs/add budesonide and mucinex (2) Open wound of left thigh ICD Codes: S71.102A - Unspecified open wound, left thigh, initial encounter Status: Acute Plan: PAD s/p femoropopliteal bypass performed by Dr. Aviles 05/21/2017 complicated by infection requiring hospitalization 06/16/17 - 06/25/17 Culture at that time grew MSSA and Pseudomonas patient was DC to rehab on IV Zosyn patient then readmitted to [facility] 07/09/17 underwent a incision, debridement and drainage of left thigh wound. Surgical wounds were negative Patient DC on Doxycycline 100 mg PO BID for 4 weeks and Levaquin 500 mg PO daily for 28 days. Patient stopped taking these 07/16/17 due to GI upset Wound culture obtained, BC x 2 requested, UA C&S stool for C diff requested Discussed case with Vascular surgery Dr. Berger who feels this is likely a superficial infection of distal bypass surgical site but recommending CTA with runoff to evaluate graft Start patient on Vancomycin and Zosyn Consult I&D, appreciate assistance continued Zosyn, DC Vancomycin, start Cubicin at renal dose - today will await Vascular reccs based on CTA (3) Fluid overload ICD Codes: E87.70 - Fluid overload, unspecified Status: Acute Plan: pt was fluid overloaded on presentation and was diuresed. hold diuretic as she was overdiuresed. (4) PAD (peripheral artery disease) ICD Codes: I73.9 - Peripheral vascular disease, unspecified Status: Chronic Plan: PAD s/p femoropopliteal bypass performed by Dr. Aviles 04/2017 complicated by infection requiring I&D see above (5) CAD (coronary artery disease) ICD Codes: I25.10 - Atherosclerotic heart disease of [place] coronary artery without angina pectoris Status: Chronic Plan: Continue patient's home Lipitor 40 mg PO QHS and Isosorbide 120 mg PO daily (6) Hypertension ICD Codes: I10 - Hypertension Status: Chronic Plan: Continue patient's home Lisinopril 5 mg PO daily Continue home metoprolol 50 my PO BID Monitor trend (7) Hyperlipidemia ICD Codes: E78.5 - Hyperlipidemia Status: Acute Plan: Continue home Simvastatin (8) GERD (gastroesophageal reflux disease) ICD Codes: K21.9 - GERD (gastroesophageal reflux disease) Status: Chronic (9) Diabetes mellitus ICD Codes: E11.9 - Type 2 diabetes mellitus without complications Status: Chronic Plan: diabetic diet accu check ACHS hold oha. Problem Qualifiers (1) Diabetes mellitus: Qualified Codes: E11.8 - Type 2 diabetes mellitus with unspecified complications Gilson Srinivasan MD Jul 20, 2017 09:10
[2017-07-20] MEDS: guaiFENesin E.R. 600 MG TAB PO SCH ×2 (12:49→21:20)
[2017-07-20] MEDS: DAPTOmycin INJ 360 MG in SODIUM CHLORIDE 0.9% INJ 100 ML IV SCH (12:50)
--- NOTE | 2017-07-20 13:45 | PD.VS.PN ---
Subjective Subjective/Hospital Course 81/F S/P Fem-Pop bypass (Dr. Aviles 04/2017) Pt reports her L LE bypass was complicated by infection requiring an I&D Pt w/o complaints this am LE warm with motor intact CTA results obtained and reviewed Objective Vitals/I&O Date Time Temp Pulse Resp B/P (MAP) Pulse Ox O2 Delivery O2 Flow Rate FiO2 07/20/17 12:00 97.7 72 20 102/53 (69) 92 07/20/17 08:00 98.1 73 20 131/66 (87) 94 07/20/17 07:47 93 21 07/20/17 04:35 97.9 82 16 122/60 (80) 93 07/20/17 03:49 69 07/20/17 00:18 78 07/19/17 23:13 97.6 79 20 121/61 (81) 97 07/19/17 21:06 Nasal Cannula 2.00 07/19/17 20:31 96 Nasal Cannula 2.00 07/19/17 20:26 69 07/19/17 20:09 98.2 80 20 95/50 (65) 96 07/19/17 16:00 97.8 80 16 102/54 (70) 94 07/20/17 07/20/17 07/20/17 07:00 15:00 23:00 Intake Total 410 ml Output Total 600 ml Balance -190 ml Physical Exam GENERAL: A&Ox3, NAD, GCS 15 SKIN: LE Warm and dry. Incision to L thigh with andres and suture closure/ white/yellow exudate present (proximal to mid incision line) HEAD: Normocephalic. EYES: No scleral icterus. No injection or drainage. NECK: Supple, trachea midline. No JVD or lymphadenopathy. CARDIOVASCULAR: Regular rate and rhythm without murmurs, gallops, or rubs. RESPIRATORY: Breath sounds equal bilaterally. No accessory muscle use. MUSCULOSKELETAL: No cyanosis, or edema. LE warm w/ motor intact Palpable R/L DP Laboratory Laboratory Tests Test 07/20/17 07:46 White Blood Count 11.8 Red Blood Count 4.30 Hemoglobin 10.6 Hematocrit 33.1 Mean Corpuscular Volume 77.1 Mean Corpuscular Hemoglobin 24.6 Mean Corpuscular Hemoglobin Concent 31.9 Red Cell Distribution Width 22.5 Platelet Count 296 Mean Platelet Volume 7.4 Neutrophils (%) (Auto) 87.8 Lymphocytes (%) (Auto) 9.3 Monocytes (%) (Auto) 2.8 Eosinophils (%) (Auto) 0.0 Basophils (%) (Auto) 0.1 Neutrophils # (Auto) 10.3 Lymphocytes # (Auto) 1.1 Monocytes # (Auto) 0.3 Eosinophils # (Auto) 0.0 Basophils # (Auto) 0.0 CBC Comment DIFF FINAL Differential Comment Blood Urea Nitrogen 37 Creatinine 1.49 Random Glucose 146 Calcium Level 8.6 Magnesium Level 1.9 Sodium Level 138 Potassium Level 4.2 Chloride Level 104 Carbon Dioxide Level 25.5 Anion Gap 9 Estimat Glomerular Filtration Rate 34 Date/Time Source Procedure Growth Status 07/18/17 18:55 Blood Peripheral Aerobic Blood Culture - Preliminary NO GROWTH IN 2 DAYS Resulted 07/18/17 18:55 Blood Peripheral Anaerobic Blood Culture - Preliminary NO GROWTH IN 2 DAYS Resulted 07/17/17 14:36 Nasal Washing Influenza Types A,B Antigen (SUNNY) - Final NEGATIVE FOR FLU A AND B ANTIGEN.... Complete 07/18/17 16:20 Urine Random Urine Urine Culture - Final <10,000 CFU/ML MIXED GRAM POSITIVE FL... Complete 07/18/17 15:30 Wound Thigh Gram Stain - Final Resulted 07/18/17 15:30 Wound Thigh Wound Culture - Preliminary RARE GROWTH NORMAL SKIN NANCI... Resulted Imaging Last 48 hours Impressions Aorta w/Runoff CTA 07/19/17 0000 Signed Impressions: Service Date/Time: Wednesday, July 19, 2017 16:32 - CONCLUSION: No significant aortoiliac inflow lesions Patent bilateral femoral to above knee bypass conduits. Fluid in the indurated changes around the bypass distally on the left worrisome for infection as indicated clinically. Tenuous calf runoff bilaterally Leno Amaya MD Assessment and Plan Assessment: (1) PAD (peripheral artery disease) Status: Chronic Plan Ms. Whiteside is an 81/F with a superficial infection of distal bypass surgical site. Reviewed CTA- Pt w/ expected post surgical changes/Graft patent and does not appear infected. Plan Continue wound care and culture-directed antibiotics. Discussed CTA results w/ pt Questions answered Pt to F/U out pt w/ Dr. Aviles in 1-2W Elissa Malagon NP [facility] [phone] Discharge Planning Pt clear for D/C from a vascular stand point Pt to f/u w/ Dr. Aviles in 1-2W Elisas Malagon Jul 20, 2017 13:45
--- NOTE | 2017-07-20 14:20 | HHI.IDPN ---
Note Infectious Disease Note Patient has occasional coughing spells. Denies pain. Afebrile. Wound culture has normal skin allen. Patient presented to the emergency department with cough and respiratory symptoms. The patient was noted to have surgical wound of the left thigh. She is status post femoral-popliteal bypass surgery in May of 2016 at [facility]. She was treated between 06/16/2017 and 06/25/2017 for infection of surgical wound due to MSSA and Pseudomonas postoperative. ID consulted for management of the wound infection. She has been on doxycycline for continued treatment of the left thigh wound. The patient has drainage coming from the wound which she has slightly dehisced and has andres still in place from I&D. She denies pain and she has no nausea or vomiting or fever or chills. She is afebrile and her white blood cell count is normal. The new culture has been taken from the wound and is pending. Blood cultures were also obtained in addition to urine culture. The ED report states that the patient developed shortness of breath on trying to ambulate to the bathroom. She was noted to be tachypneic and hypoxic. This consultation is requested for PAST MEDICAL HISTORY 1. Diabetes mellitus. 2. Hyperlipidemia. 3. Hypertension. 4. Coronary artery disease. 5. Gastroesophageal reflux disease. 6. Peripheral vascular disease. 7. History of coronary bypass graft surgery in 2001. 8. History of fem-pop bypass surgery in April 2017. 9. Wound infection of the surgical site with MSSA and Pseudomonas. 10. History of basal cell carcinoma. 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 Piperacillin/tazobactam. 2. Daptomycin. OBJECTIVE: Vital Signs Date Time Temp Pulse Resp B/P (MAP) Pulse Ox O2 Delivery O2 Flow Rate FiO2 07/20/17 12:00 97.7 72 20 102/53 (69) 92 07/20/17 08:00 98.1 73 20 131/66 (87) 94 07/20/17 07:47 93 21 07/20/17 04:35 97.9 82 16 122/60 (80) 93 07/20/17 03:49 69 07/20/17 00:18 78 07/19/17 23:13 97.6 79 20 121/61 (81) 97 07/19/17 21:06 Nasal Cannula 2.00 07/19/17 20:31 96 Nasal Cannula 2.00 07/19/17 20:26 69 07/19/17 20:09 98.2 80 20 95/50 (65) 96 07/19/17 16:00 97.8 80 16 102/54 (70) 94 Laboratory Tests Test 07/19/17 09:23 07/20/17 07:46 White Blood Count 9.9 TH/MM3 11.8 TH/MM3 Red Blood Count 4.31 MIL/MM3 4.30 MIL/MM3 Hemoglobin 10.9 GM/DL 10.6 GM/DL Hematocrit 33.5 % 33.1 % Mean Corpuscular Volume 77.9 FL 77.1 FL Mean Corpuscular Hemoglobin 25.3 PG 24.6 PG Mean Corpuscular Hemoglobin Concent 32.4 % 31.9 % Red Cell Distribution Width 22.2 % 22.5 % Platelet Count 284 TH/MM3 296 TH/MM3 Mean Platelet Volume 7.7 FL 7.4 FL Neutrophils (%) (Auto) 84.4 % 87.8 % Lymphocytes (%) (Auto) 13.5 % 9.3 % Monocytes (%) (Auto) 2.0 % 2.8 % Eosinophils (%) (Auto) 0.0 % 0.0 % Basophils (%) (Auto) 0.1 % 0.1 % Neutrophils # (Auto) 8.4 TH/MM3 10.3 TH/MM3 Lymphocytes # (Auto) 1.3 TH/MM3 1.1 TH/MM3 Monocytes # (Auto) 0.2 TH/MM3 0.3 TH/MM3 Eosinophils # (Auto) 0.0 TH/MM3 0.0 TH/MM3 Basophils # (Auto) 0.0 TH/MM3 0.0 TH/MM3 CBC Comment DIFF FINAL DIFF FINAL Differential Comment Laboratory Tests Test 07/19/17 09:23 07/20/17 07:46 Blood Urea Nitrogen 32 MG/DL 37 MG/DL Creatinine 1.43 MG/DL 1.49 MG/DL Random Glucose 193 MG/DL 146 MG/DL Calcium Level 8.6 MG/DL 8.6 MG/DL Magnesium Level 1.8 MG/DL 1.9 MG/DL Sodium Level 138 MEQ/L 138 MEQ/L Potassium Level 4.1 MEQ/L 4.2 MEQ/L Chloride Level 103 MEQ/L 104 MEQ/L Carbon Dioxide Level 25.6 MEQ/L 25.5 MEQ/L Anion Gap 9 MEQ/L 9 MEQ/L Estimat Glomerular Filtration Rate 35 ML/MIN 34 ML/MIN Microbiology Date/Time Source Procedure Growth Status 07/18/17 18:55 Blood Peripheral Aerobic Blood Culture - Preliminary NO GROWTH IN 2 DAYS Resulted 07/18/17 18:55 Blood Peripheral Anaerobic Blood Culture - Preliminary NO GROWTH IN 2 DAYS Resulted 07/18/17 16:20 Blood Peripheral Aerobic Blood Culture - Preliminary NO GROWTH IN 2 DAYS Resulted 07/18/17 16:20 Blood Peripheral Anaerobic Blood Culture - Preliminary NO GROWTH IN 2 DAYS Resulted 07/17/17 14:36 Nasal Washing Influenza Types A,B Antigen (SUNNY) - Final NEGATIVE FOR FLU A AND B ANTIGEN.... Complete 07/18/17 16:20 Urine Random Urine Urine Culture - Final <10,000 CFU/ML MIXED GRAM POSITIVE FL... Complete 07/18/17 15:30 Wound Thigh Gram Stain - Final Resulted 07/18/17 15:30 Wound Thigh Wound Culture - Preliminary RARE GROWTH NORMAL SKIN ALLEN... Resulted Last Impressions Aorta w/Runoff CTA 07/19/17 0000 Signed Impressions: Service Date/Time: Wednesday, July 19, 2017 16:32 - CONCLUSION: No significant aortoiliac inflow lesions Patent bilateral femoral to above knee bypass conduits. Fluid in the indurated changes around the bypass distally on the left worrisome for infection as indicated clinically. Tenuous calf runoff bilaterally Leno Amaya MD Chest X-Ray 07/18/17 0800 Signed Impressions: Service Date/Time: Tuesday, July 18, 2017 08:48 - CONCLUSION: Stable appearance with mild central engorgement of the central vessels. Armando Wright MD PHYSICAL EXAMINATION General: She is a pleasant, well-developed female who is in no acute distress. She is awake and alert and oriented. HEENT: Pupils reactive to light. No icterus. No conjunctival erythema. Oropharynx - moist mucosa without lesions. Neck: Supple without adenopathy or swelling. Lungs: Bilateral rhonchi. No accessory muscle use. HEART: slight systolic murmur at the left sternal border. No rubs or gallops. Abdomen: Obese, soft, no tenderness appreciated. Extremities: The patient has a surgical incision at the inner aspect of the thigh region. The incision is dehisced slightly. Less serous drainage today. There are andres in place as well as sutures over the wound incision which is approximately 6 cm long. There is no erythema around the site. No tenderness on palpation. Skin: No diffuse rash. Neuro: There are no gross focal findings. Psych: Pleasant, calm and cooperative. IMPRESSION 1. Postop wound infection of the left thigh. Prior culture with MSSA and Pseudomonas. Ongoing infection. Previous treatment with intravenous antibiotics followed by oral antibiotics. 2. Abnormal urinalysis indicating urinary tract infection. 3. Acute renal failure. RECOMMENDATIONS 1. Continue intravenous Zosyn. 2. Continue Cubicin adjusted for renal function. 3. Repeat the wound culture. 4. Monitor clinical status. If the culture is negative, I would switch to PO doxycycline. I will follow the culture. Follow up with Dr Sparks on discharge. Jaswinder Heart MD Jul 20, 2017 14:20
[2017-07-20] MEDS: guaiFENesin/CODEINE SYRUP 200 MG/20 MG/10 ML CUP PO PRN ×2 (15:26→20:18)
[2017-07-20] MEDS: RESP: BUDESONIDE 0.5 MG/2 ML NEB NEB SCH (19:38)
[2017-07-20] MEDS: ATORVASTATIN 40 MG TAB PO SCH (21:20)
[2017-07-21] VITALS (10 sets, daily range): BP systolic 107–137; BP diastolic 56–80; PULSE 74–93; RESP 16–20; TEMP 95.8–98.4; O2SAT 93–96
[2017-07-21] MEDS: guaiFENesin/CODEINE SYRUP 200 MG/20 MG/10 ML CUP PO PRN ×2 (00:50→04:56)
[2017-07-21] MEDS: methylPREDNISolone SOD SUCC 125 MG/2 ML VIAL IV PUSH SCH ×4 (00:51→17:36)
[2017-07-21] MEDS: PIPERACIL-TAZO 3.375 GM PREMIX 50 ML IV SCH ×4 (04:05→22:05)
[2017-07-21] MEDS: NYSTATIN 100,000 U/GM PWD 15 GM BTL TOPICAL SCH ×3 (05:41→21:21)
[2017-07-21] MEDS: SODIUM CHLORIDE 0.9% FLUSH 10 ML FLUSH IV FLUSH SCH ×2 (07:34→21:00)
[2017-07-21] MEDS: guaiFENesin E.R. 600 MG TAB PO SCH ×2 (08:28→21:20)
[2017-07-21] MEDS: RIVAROXABAN 20 MG TAB PO SCH (08:28)
[2017-07-21] MEDS: LISINOPRIL 5 MG TAB PO SCH (08:28)
[2017-07-21] MEDS: PANTOPRAZOLE SOD 20 MG DELAYED RELEASE TAB PO SCH (08:28)
[2017-07-21] MEDS: METOPROLOL TARTRATE 50 MG TAB PO SCH ×2 (08:29→21:20)
[2017-07-21] MEDS: ISOSORBIDE MONONITRATE 60 MG CR TAB (IMDUR) PO SCH (08:32)
--- NOTE | 2017-07-21 08:39 | HHI.PR ---
Subjective Remarks still coughing/sob Objective Vitals heart reg lung wheeze/rhonci dustin abd s/nt ext no edema . right thigh wound/andres. some mild purelence Vital Signs Date Time Temp Pulse Resp B/P (MAP) Pulse Ox O2 Delivery O2 Flow Rate FiO2 07/21/17 04:00 98.0 83 16 121/72 (88) 94 07/21/17 04:00 Room Air 07/21/17 04:00 82 07/21/17 00:00 97.7 78 16 121/68 (85) 95 07/21/17 00:00 Room Air 07/21/17 00:00 93 07/20/17 20:00 96.1 93 18 101/57 (72) 94 07/20/17 20:00 96 07/20/17 20:00 Room Air 07/20/17 19:41 93 Nasal Cannula 2.00 07/20/17 19:23 96.1 93 18 101/57 (72) 94 07/20/17 16:21 96.2 85 16 106/53 (70) 93 07/20/17 16:00 97.3 80 20 100/54 (69) 95 07/20/17 12:00 69 07/20/17 12:00 97.7 72 20 102/53 (69) 92 Result Diagram: 07/20/17 0746 07/20/17 0746 Imaging Last Impressions Chest X-Ray 07/18/17 0800 Signed Impressions: Service Date/Time: Tuesday, July 18, 2017 08:48 - CONCLUSION: Stable appearance with mild central engorgement of the central vessels. Armando Wright MD Procedures none A/P Problem List: (1) COPD exacerbation ICD Codes: J44.1 - Chronic obstructive pulmonary disease with (acute) exacerbation Status: Acute Plan: This is a 81 year old female patient with a past medical history which includes CAD s/p CABG 2001, COPD, HTN, hyperlipidemia, GERD and PAD s/p femoropopliteal bypass performed by Dr. Aviles 04/2017 complicated by infection requiring I&D. Patient recently DC from [facility] 07/12/2017. [place] [facility] [place]/o cough. copd exacerbation. not improving. solumedrol/nebs/added budesonide and mucinex mucomyst. ct eval (2) Open wound of left thigh ICD Codes: S71.102A - Unspecified open wound, left thigh, initial encounter Status: Acute Plan: PAD s/p femoropopliteal bypass performed by Dr. Aviles 05/21/2017 complicated by infection requiring hospitalization 06/16/17 - 06/25/17 Culture at that time grew MSSA and Pseudomonas patient was DC to rehab on IV Zosyn patient then readmitted to [facility] 07/09/17 underwent a incision, debridement and drainage of left thigh wound. Surgical wounds were negative Patient DC on Doxycycline 100 mg PO BID for 4 weeks and Levaquin 500 mg PO daily for 28 days. Patient stopped taking these 07/16/17 due to GI upset Wound culture obtained, BC x 2 requested, UA C&S stool for C diff requested Discussed case with Vascular surgery Dr. Berger who feels this is likely a superficial infection of distal bypass surgical site but recommending CTA with runoff to evaluate graft Start patient on Vancomycin and Zosyn Consult I&D, appreciate assistance continued Zosyn, DC Vancomycin, start Cubicin at renal dose - no surgical intervention planned per vascular -await final abx reccs per ID..pt says the last prescribed po abx she couldn't tolerate (3) Fluid overload ICD Codes: E87.70 - Fluid overload, unspecified Status: Acute Plan: pt was fluid overloaded on presentation and was diuresed. hold diuretic as she was overdiuresed. (4) PAD (peripheral artery disease) ICD Codes: I73.9 - Peripheral vascular disease, unspecified Status: Chronic Plan: PAD s/p femoropopliteal bypass performed by Dr. Aviles 04/2017 complicated by infection requiring I&D see above (5) CAD (coronary artery disease) ICD Codes: I25.10 - Atherosclerotic heart disease of [place] coronary artery without angina pectoris Status: Chronic Plan: Continue patient's home Lipitor 40 mg PO QHS and Isosorbide 120 mg PO daily (6) Hypertension ICD Codes: I10 - Hypertension Status: Chronic Plan: Continue patient's home Lisinopril 5 mg PO daily Continue home metoprolol 50 my PO BID Monitor trend (7) Hyperlipidemia ICD Codes: E78.5 - Hyperlipidemia Status: Acute Plan: Continue home Simvastatin (8) GERD (gastroesophageal reflux disease) ICD Codes: K21.9 - GERD (gastroesophageal reflux disease) Status: Chronic (9) Diabetes mellitus ICD Codes: E11.9 - Type 2 diabetes mellitus without complications Status: Chronic Plan: diabetic diet accu check ACHS hold oha. Problem Qualifiers (1) Diabetes mellitus: Qualified Codes: E11.8 - Type 2 diabetes mellitus with unspecified complications Gilson Srinivasan MD Jul 21, 2017 08:39
[2017-07-21 08:43] LABS: BICARBONATE 25.2 MEQ/L (21.0-32.0); CALCIUM 8.4 MG/DL (8.5-10.1); CREATININE 1.52 MG/DL (0.50-1.00)
[2017-07-21] MEDS: RESP: ALBUTEROL 2.5 MG/IPRATROPIUM 0.5 MG NEB (PRN) NEB (08:43)
[2017-07-21] MEDS: RESP: BUDESONIDE 0.5 MG/2 ML NEB NEB SCH ×2 (08:44→20:53)
[2017-07-21] MEDS: MEDIUM DOSE INSULIN NOVOLOG SUPPLEMENTAL SCALE SQ SCH ×4 (09:04→21:20)
[2017-07-21] MEDS: LORATADINE 10 MG TAB PO SCH (09:05)
[2017-07-21] MEDS ORDERED: SODIUM CHLORID 0.9% 500 ML INJ 500 ML IV SCH (10:00)
--- NOTE | 2017-07-21 10:25 | RADRPT ---
EXAM DATE/TIME: 07/21/2017 10:07 [place] COMPARISON: No previous studies available for comparison. INDICATIONS : Dyspnea RADIATION DOSE: 18.98 CTDIvol (mGy) MEDICAL HISTORY : Cardiovascular disease. Hypertension. Chronic obstructive pulmonary disease. SURGICAL HISTORY : CABG Abdominal aortic aneurysm repair. ENCOUNTER: Initial ACUITY: 2 days PAIN SCALE: 0/10 LOCATION: chest TECHNIQUE: Volumetric scanning of the chest was performed. Using automated exposure control and adjustment of t he mA and/or kV according to patient size, radiation dose was kept as low as reasonably achievable to obtain optimal diagnostic quality images. DICOM format image data is available electronically for r eview and comparison. Follow-up recommendations for detected pulmonary nodules are based at a minimum on nodule size and pa tient risk factors according to Fleischner Society Guidelines. FINDINGS: LUNGS: There is no consolidation or pneumothorax. No concerning pulmonary nodule is visualized. PLEURAE: There is no pleural thickening or pleural effusion. MEDIASTINUM: No enlarged mediastinal nodes. Coronary artery calcifications. AXILLAE: Within normal limits. No lymphadenopathy. MUSCULOSKELETAL: Within normal limits for patient age. CONCLUSION: Negative noncontrast CT thorax. Armando Wright MD on July 21, 2017 at 10:18 Board Certified Radiologist. This report was verified electronically.
[2017-07-21] MEDS ORDERED: PHARMACY ORDERED LAB ONE (11:45)
[2017-07-21] MEDS: RESP: ALBUTEROL 2.5 MG/IPRATROPIUM 0.5 MG NEB (SCH) NEB ×3 (12:00→20:53)
--- NOTE | 2017-07-21 13:24 | ECHRPT ---
Indication: HEART FAILURE CONCLUSIONS Normal left ventricular size. Wall thickness is measured at the upper limits of normal. The left ventricular systolic function is low normal with an estimated ejection fraction in the rang e of 50%. [id number] mitral valve regurgitation. Aortic valve sclerosis is present. mean gradient = 15 mm hg c/w mild aortic valve stenosis Mild thickening of the aortic valve leaflets. There is trace to mild tricuspid valve regurgitation. The estimated pulmonary arterial pressure is 42 mmHg. BP: 154 / 65 HR: 79 Rhythm: MEASUREMENTS (Male / Female) Normal Values Technical Quality: 2D ECHO LV Diastolic Diameter PLAX 4.8 cm 4.2 - 5.9 / 3.9 - 5.3 cm LV Systolic Diameter PLAX 3.6 cm IVS Diastolic Thickness 1.1 cm 0.6 - 1.0 / 0.6 - 0.9 cm LVPW Diastolic Thickness 0.6 cm 0.6 - 1.0 / 0.6 - 0.9 cm LV Relative Wall Thickness 0.4 RV Internal Dim ED PLAX 2.5 cm LA Systolic Diameter LX 3.7 cm 3.0 - 4.0 / 2.7 - 3.8 cm M-MODE Aortic Root Diameter MM 3.0 cm AV Cusp Separation MM 1.3 cm DOPPLER AV Peak Velocity 281.0 cm/s AV Peak Gradient 31.6 mmHg AV Mean Gradient 17.0 mmHg AV Velocity Time Integral 74.1 cm LVOT Peak Velocity 89.3 cm/s LVOT Peak Gradient 3.2 mmHg LVOT Velocity Time Integral 28.7 cm Mitral E Point Velocity 97.5 cm/s Mitral A Point Velocity 141.0 cm/s Mitral E to A Ratio 0.7 TR Peak Velocity 304.0 cm/s TR Peak Gradient 37.0 mmHg FINDINGS LEFT VENTRICLE Normal left ventricular size. Wall thickness is measured at the upper limits of normal. The left ventricular systolic function is low normal with an estimated ejection fraction in the rang e of 50%. RIGHT VENTRICLE Normal right ventricular size and systolic function. LEFT ATRIUM The left atrial size is normal. RIGHT ATRIUM The right atrial size is normal. ATRIAL SEPTUM Normal atrial septal thickness without atrial level shunting by limited color doppler interrogation. AORTA The aortic root and proximal ascending aorta are normal in size on limited imaging. MITRAL VALVE [id number] mitral valve regurgitation. AORTIC VALVE Aortic valve sclerosis is present. Mild thickening of the aortic valve leaflets. TRICUSPID VALVE There is trace to mild tricuspid valve regurgitation. The estimated pulmonary arterial pressure is 42 mmHg. PULMONARY VALVE The pulmonary valve is not well visualized. VESSELS The inferior vena cava is normal in size. PERICARDIUM No pericardial effusion. Sahil Camarena MD, FACC, [facility] [place] (Electronically Signed) Final Date:21 July 2017 13:23
[2017-07-21] MEDS: DAPTOmycin INJ 360 MG in SODIUM CHLORIDE 0.9% INJ 100 ML IV SCH (14:53)
[2017-07-21] MEDS: RESP: ACETYLCYSTEINE 20% 30 ML NEB NEB SCH ×2 (16:00→20:53)
[2017-07-21] MEDS: ATORVASTATIN 40 MG TAB PO SCH (21:20)
[2017-07-22] VITALS (12 sets, daily range): BP systolic 126–165; BP diastolic 64–76; PULSE 61–100; RESP 16–20; TEMP 97.7–98; O2SAT 95–99
[2017-07-22] MEDS: PIPERACIL-TAZO 3.375 GM PREMIX 50 ML IV SCH ×2 (00:06→12:30)
[2017-07-22] MEDS: methylPREDNISolone SOD SUCC 125 MG/2 ML VIAL IV PUSH SCH ×4 (00:06→18:01)
[2017-07-22] MEDS: guaiFENesin/CODEINE SYRUP 200 MG/20 MG/10 ML CUP PO PRN ×2 (00:07→16:42)
[2017-07-22] MEDS: NYSTATIN 100,000 U/GM PWD 15 GM BTL TOPICAL SCH ×3 (04:54→20:53)
[2017-07-22 07:11] LABS: BICARBONATE 27.6 MEQ/L (21.0-32.0); CALCIUM 8.4 MG/DL (8.5-10.1); CREATININE 1.21 MG/DL (0.50-1.00)
[2017-07-22] MEDS: RESP: ACETYLCYSTEINE 20% 30 ML NEB NEB SCH ×4 (08:00→20:53)
[2017-07-22] MEDS: RIVAROXABAN 20 MG TAB PO SCH (09:04)
[2017-07-22] MEDS: METOPROLOL TARTRATE 50 MG TAB PO SCH ×2 (09:04→20:52)
[2017-07-22] MEDS: LISINOPRIL 5 MG TAB PO SCH (09:04)
[2017-07-22] MEDS: ISOSORBIDE MONONITRATE 60 MG CR TAB (IMDUR) PO SCH (09:05)
[2017-07-22] MEDS: PANTOPRAZOLE SOD 20 MG DELAYED RELEASE TAB PO SCH (09:05)
[2017-07-22] MEDS: RESP: ALBUTEROL 2.5 MG/IPRATROPIUM 0.5 MG NEB (SCH) NEB ×4 (09:05→20:53)
[2017-07-22] MEDS: LORATADINE 10 MG TAB PO SCH (09:05)
[2017-07-22] MEDS: RESP: BUDESONIDE 0.5 MG/2 ML NEB NEB SCH ×2 (09:06→20:53)
[2017-07-22] MEDS: MEDIUM DOSE INSULIN NOVOLOG SUPPLEMENTAL SCALE SQ SCH ×4 (09:13→20:53)
--- NOTE | 2017-07-22 09:33 | HHI.PR ---
Subjective Remarks still discouraged with cough/congestion Objective Vitals heart reg lung rhonci dustin abd s/nt ext left thigh andres...no purelence today. Vital Signs Date Time Temp Pulse Resp B/P (MAP) Pulse Ox O2 Delivery O2 Flow Rate FiO2 07/22/17 04:00 Room Air 07/22/17 04:00 97.9 72 18 133/64 (87) 95 07/22/17 04:00 85 07/22/17 00:00 73 07/22/17 00:00 98.0 72 19 138/65 (89) 97 07/22/17 00:00 Nasal Cannula 1.00 07/21/17 21:01 94 07/21/17 20:00 Room Air 07/21/17 20:00 77 07/21/17 19:20 98.4 87 20 111/56 (74) 07/21/17 16:30 97.6 82 16 107/58 (74) 93 07/21/17 15:47 74 07/21/17 12:00 95.8 87 20 137/61 (86) 94 Result Diagram: 07/20/17 0746 07/22/17 0600 Imaging Last Impressions Chest X-Ray 07/18/17 0800 Signed Impressions: Service Date/Time: Tuesday, July 18, 2017 08:48 - CONCLUSION: Stable appearance with mild central engorgement of the central vessels. Armando Wright MD Procedures none A/P Problem List: (1) COPD exacerbation ICD Codes: J44.1 - Chronic obstructive pulmonary disease with (acute) exacerbation Status: Acute Plan: This is a 81 year old female patient with a past medical history which includes CAD s/p CABG 2001, COPD, HTN, hyperlipidemia, GERD and PAD s/p femoropopliteal bypass performed by Dr. Aviles 04/2017 complicated by infection requiring I&D. Patient recently DC from [facility] 07/12/2017. Patient presents to the ER at [facility] [place] today with c/o cough. copd exacerbation. not improving. solumedrol/nebs/ budesonide/mucinex/claritin on abx for leg....no atypical coverage Pt discouraged as these respiratory sx's have been ongoing from previous hospitalization at [facility] and now. Will ask for pulmonary opinion. CT chest no edema/pna (2) Open wound of left thigh ICD Codes: S71.102A - Unspecified open wound, left thigh, initial encounter Status: Acute Plan: PAD s/p femoropopliteal bypass performed by Dr. Aviles 05/21/2017 complicated by infection requiring hospitalization 06/16/17 - 06/25/17 Culture at that time grew MSSA and Pseudomonas patient was DC to rehab on IV Zosyn patient then readmitted to [facility] 07/09/17 underwent a incision, debridement and drainage of left thigh wound. Surgical wounds were negative Patient DC on Doxycycline 100 mg PO BID for 4 weeks and Levaquin 500 mg PO daily for 28 days. Patient stopped taking these 07/16/17 due to GI upset Wound culture obtained, BC x 2 requested, UA C&S Discussed case with Vascular surgery Dr. Berger who feels this is likely a superficial infection of distal bypass surgical site but recommending CTA with runoff to evaluate graft Start patient on Vancomycin and Zosyn Consult I&D, appreciate assistance continued Zosyn, DC Vancomycin, start Cubicin at renal dose - no surgical intervention planned per vascular -await final abx reccs per ID..pt says the last prescribed po abx she couldn't tolerate (3) Fluid overload ICD Codes: E87.70 - Fluid overload, unspecified Status: Acute Plan: pt was fluid overloaded on presentation and was diuresed. hold diuretic as she was overdiuresed. (4) PAD (peripheral artery disease) ICD Codes: I73.9 - Peripheral vascular disease, unspecified Status: Chronic Plan: PAD s/p femoropopliteal bypass performed by Dr. Aviles 04/2017 complicated by infection requiring I&D see above (5) CAD (coronary artery disease) ICD Codes: I25.10 - Atherosclerotic heart disease of [place] coronary artery without angina pectoris Status: Chronic Plan: Continue patient's home Lipitor 40 mg PO QHS and Isosorbide 120 mg PO daily (6) Hypertension ICD Codes: I10 - Hypertension Status: Chronic Plan: Continue patient's home Lisinopril 5 mg PO daily Continue home metoprolol 50 my PO BID Monitor trend (7) Hyperlipidemia ICD Codes: E78.5 - Hyperlipidemia Status: Chronic Plan: Continue home Simvastatin (8) GERD (gastroesophageal reflux disease) ICD Codes: K21.9 - GERD (gastroesophageal reflux disease) Status: Chronic (9) Diabetes mellitus ICD Codes: E11.9 - Type 2 diabetes mellitus without complications Status: Chronic Plan: diabetic diet accu check ACHS hold oha. Problem Qualifiers (1) Diabetes mellitus: Qualified Codes: E11.8 - Type 2 diabetes mellitus with unspecified complications Gilson Srinivasan MD Jul 22, 2017 09:33
[2017-07-22] MEDS: guaiFENesin E.R. 600 MG TAB PO SCH ×2 (09:36→20:51)
--- NOTE | 2017-07-22 12:22 | PD.CONS ---
HPI History of Present Illness This is a 81 year old lady with DM, CAD, COPD, PAD who presented with cough and dyspnea. GI has been consulted for acute GIB. Just today she had an episode of loose bloody stool. She denies abd pain, n/v, black tarry stool, prior hx GIB. Her last colonoscopy was "many years ago", done in [place], and normal per pt. Never had EGD. She is on xarelto for a clot in her thigh, last had xarelto this am. (Eloisa Mcgee) PFSH Past Medical History DM2 CAD COPD PAD CLOT Open thigh wound Past Surgical History CABG mult fem pop bypasses cardiac stent placement (Eloisa Mcgee) Uncoded Allergies: CRESTOR (Allergy, Severe, 11/23/11) EXTREME PAIN CALF OF LEGS Family History sister - breast ca Social History no etoh , tobacco or illicit drug use (Eloisa Mcgee) Review of Systems Constitutional: DENIES: Fever Endocrine: DENIES: Polydipsia Eyes: DENIES: Blurred vision Ears, nose, mouth, throat: DENIES: Hearing loss Respiratory: COMPLAINS OF: Cough, Shortness of breath Cardiovascular: DENIES: Chest pain Gastrointestinal: COMPLAINS OF: Bloody stools, DENIES: Abdominal pain, Black stools, Nausea, Vomiting Genitourinary: DENIES: Urinary frequency Musculoskeletal: DENIES: Joint pain Integumentary: DENIES: Abnormal pigmentation Hematologic/lymphatic: DENIES: Bruising Immunologic/allergic: DENIES: Eczema Neurologic: DENIES: Headache Psychiatric: DENIES: Confusion (Eloisa Mcgee) GI Exam Vitals I&O Vital Signs Date Time Temp Pulse Resp B/P (MAP) Pulse Ox O2 Delivery O2 Flow Rate FiO2 07/22/17 08:05 97.9 75 16 161/76 (104) 95 07/22/17 08:00 Nasal Cannula 1.00 07/22/17 07:41 73 07/22/17 04:00 Room Air 07/22/17 04:00 97.9 72 18 133/64 (87) 95 07/22/17 04:00 85 07/22/17 00:00 73 07/22/17 00:00 98.0 72 19 138/65 (89) 97 07/22/17 00:00 Nasal Cannula 1.00 07/21/17 21:01 94 07/21/17 20:00 Room Air 07/21/17 20:00 77 07/21/17 19:20 98.4 87 20 111/56 (74) 07/21/17 16:30 97.6 82 16 107/58 (74) 93 07/21/17 15:47 74 I/O 07/21/17 07/21/17 07/21/17 07/22/17 07/22/17 07/22/17 07:00 15:00 23:00 07:00 15:00 23:00 Intake Total 100 ml 50 ml 530 ml 790 ml Output Total 1000 ml 300 ml Balance -900 ml 50 ml 530 ml 490 ml Intake Oral 480 ml 240 ml IV Total 100 ml 50 ml 50 ml 550 ml Output Urine Total 1000 ml 300 ml # Voids 4 1 # Bowel Movements 2 Imaging Last Impressions Chest CT 07/21/17 0000 Signed Impressions: Service Date/Time: Friday, July 21, 2017 10:07 - CONCLUSION: Negative noncontrast CT thorax. Armando Wright MD Aorta w/Runoff CTA 07/19/17 0000 Signed Impressions: Service Date/Time: Wednesday, July 19, 2017 16:32 - CONCLUSION: No significant aortoiliac inflow lesions Patent bilateral femoral to above knee bypass conduits. Fluid in the indurated changes around the bypass distally on the left worrisome for infection as indicated clinically. Tenuous calf runoff bilaterally Leno Amaya MD Chest X-Ray 07/18/17 0800 Signed Impressions: Service Date/Time: Tuesday, July 18, 2017 08:48 - CONCLUSION: Stable appearance with mild central engorgement of the central vessels. Armando Wright MD Laboratory Test 07/22/17 06:00 Blood Urea Nitrogen 34 MG/DL Creatinine 1.21 MG/DL Random Glucose 164 MG/DL Calcium Level 8.4 MG/DL Sodium Level 141 MEQ/L Potassium Level 4.7 MEQ/L Chloride Level 108 MEQ/L Carbon Dioxide Level 27.6 MEQ/L Anion Gap 5 MEQ/L Estimat Glomerular Filtration Rate 43 ML/MIN Date/Time Source Procedure Growth Status 07/18/17 18:55 Blood Peripheral Aerobic Blood Culture - Preliminary NO GROWTH IN 4 DAYS Resulted 07/18/17 18:55 Blood Peripheral Anaerobic Blood Culture - Preliminary NO GROWTH IN 4 DAYS Resulted 07/17/17 14:36 Nasal Washing Influenza Types A,B Antigen (SUNNY) - Final NEGATIVE FOR FLU A AND B ANTIGEN.... Complete 07/18/17 16:20 Urine Random Urine Urine Culture - Final <10,000 CFU/ML MIXED GRAM POSITIVE FL... Complete 07/20/17 14:00 Wound Thigh Gram Stain - Final Resulted 07/20/17 14:00 Wound Thigh Wound Culture - Preliminary NO GROWTH IN 48 HOURS. Resulted Physical Examination HEENT: PERRL; normocephalic; atraumatic; no jaundice. CHEST: rhonchi, getting breathing tx CARDIAC: RRR ABDOMEN: Soft, obese, nontender; no hepatosplenomegaly; bowel sounds are present in all four quadrants. EXTREMITIES: No clubbing, cyanosis, + BLE edema. dressing left inner thigh intact and dry SKIN: Normal; no rash; no jaundice. SUPERVISOR GATE SERVICES: No focal deficits; alert and oriented times three. (Eloisa Mcgee) Assessment and Plan Plan ASSESSMENT - hematochezia - 1 episode today. no prior hx GIB. on xarelto for clot in leg. no recent colonoscopy, last was done "years ago" in [place] and normal per pt. Recommended she have colonoscopy but she declines at this time. - anemia - mild, microcytic, HH is stable. likely multifactorial - COPD exacerbation per primary PLAN - monitor labs - transfuse if needed - notify GI if pt decides to proceed with colonoscopy - supportive care pt seen by myself and Dr Leo and this note is written on his behalf (Eloisa Mcgee) Physician Comments Seen andexamined with ATV MECHANIC, no active bleeding reported at present. Doesnot want any gi testing unless absolutely needed. Monitor labs. Will follow, thank you (Nic Leo MD) Eloisa Mcgee Jul 22, 2017 12:22 Nic Leo MD Jul 22, 2017 17:42
[2017-07-22] MEDS: SODIUM CHLORIDE 0.9% FLUSH 10 ML FLUSH IV FLUSH SCH ×2 (12:31→20:52)
[2017-07-22 12:32] LABS: HEMATOCRIT 31.9 % (35.0-46.0); HEMOGLOBIN 10.1 GM/DL (11.6-15.3)
--- NOTE | 2017-07-22 12:57 | PD.VS.PN ---
Subjective Subjective/Hospital Course 81/F S/P Fem-Pop bypass (Dr. Aviles 04/2017) Pt reports her L LE bypass was complicated by infection requiring an I&D Pt w/o complaints this am LE warm with motor intact L LE incision site w/ improved appearance Objective Vitals/I&O Date Time Temp Pulse Resp B/P (MAP) Pulse Ox O2 Delivery O2 Flow Rate FiO2 07/22/17 08:05 97.9 75 16 161/76 (104) 95 07/22/17 08:00 Nasal Cannula 1.00 07/22/17 07:41 73 07/22/17 04:00 Room Air 07/22/17 04:00 97.9 72 18 133/64 (87) 95 07/22/17 04:00 85 07/22/17 00:00 73 07/22/17 00:00 98.0 72 19 138/65 (89) 97 07/22/17 00:00 Nasal Cannula 1.00 07/21/17 21:01 94 07/21/17 20:00 Room Air 07/21/17 20:00 77 07/21/17 19:20 98.4 87 20 111/56 (74) 07/21/17 16:30 97.6 82 16 107/58 (74) 93 07/21/17 15:47 74 07/22/17 07/22/17 07/22/17 07:00 15:00 23:00 Intake Total 790 ml Output Total 300 ml Balance 490 ml Physical Exam GENERAL: A&Ox3, NAD, GCS 15 SKIN: LE Warm and dry. Incision to L thigh with andres and suture closure/ white exudate present ( proximal to mid incision line) improved in appearance w/o erythema/swelling HEAD: Normocephalic. EYES: No scleral icterus. No injection or drainage. NECK: Supple, trachea midline. No JVD or lymphadenopathy. CARDIOVASCULAR: Regular rate and rhythm without murmurs, gallops, or rubs. RESPIRATORY: Breath sounds equal bilaterally. No accessory muscle use. MUSCULOSKELETAL: No cyanosis, or edema. LE warm w/ motor intact Palpable R/L DP Laboratory Laboratory Tests Test 07/22/17 06:00 07/22/17 12:01 Blood Urea Nitrogen 34 Creatinine 1.21 Random Glucose 164 Calcium Level 8.4 Sodium Level 141 Potassium Level 4.7 Chloride Level 108 Carbon Dioxide Level 27.6 Anion Gap 5 Estimat Glomerular Filtration Rate 43 Hemoglobin 10.1 Hematocrit 31.9 Date/Time Source Procedure Growth Status 07/18/17 18:55 Blood Peripheral Aerobic Blood Culture - Preliminary NO GROWTH IN 4 DAYS Resulted 07/18/17 18:55 Blood Peripheral Anaerobic Blood Culture - Preliminary NO GROWTH IN 4 DAYS Resulted 07/17/17 14:36 Nasal Washing Influenza Types A,B Antigen (SUNNY) - Final NEGATIVE FOR FLU A AND B ANTIGEN.... Complete 07/18/17 16:20 Urine Random Urine Urine Culture - Final <10,000 CFU/ML MIXED GRAM POSITIVE FL... Complete 07/20/17 14:00 Wound Thigh Gram Stain - Final Resulted 07/20/17 14:00 Wound Thigh Wound Culture - Preliminary NO GROWTH IN 48 HOURS. Resulted Imaging Last [address] 07/21/17 0000 Signed Impressions: Service Date/Time: Friday, July 21, 2017 10:07 - CONCLUSION: Negative noncontrast CT thorax. Armando Wright MD Assessment and Plan Assessment: (1) PAD (peripheral artery disease) Status: Chronic Plan Ms. Whiteside is an 81/F with a superficial infection of distal bypass surgical site. Reviewed CTA- Pt w/ expected post surgical changes/Graft patent and does not appear infected. L LE wound w/ improved appearance/No erythema/swelling present Plan Continue wound care and culture-directed antibiotics. Pt clear for d/c from a vascular stand point Pt to F/U out pt w/ Dr. Aviles in 1-2W Elissa Malagon NP [facility] [phone] Discharge Planning Pt clear for D/C from a vascular stand point Pt to f/u w/ Dr. Aviles in 1-2W Elissa Malagon Jul 22, 2017 12:57
--- NOTE | 2017-07-22 13:20 | HHI.IDPN ---
Note Infectious Disease Note Patient feels okay. RN reports several bloody stools today. Denies abdominal pain. Afebrile. Wound culture has no growth. Left thigh wound has no drainage at this time. Patient presented to the emergency department with cough and respiratory symptoms. The patient was noted to have surgical wound of the left thigh. She is status post femoral-popliteal bypass surgery in May of 2016 at [facility]. She was treated between 06/16/2017 and 06/25/2017 for infection of surgical wound due to MSSA and Pseudomonas postoperative. ID consulted for management of the wound infection. PAST MEDICAL HISTORY 1. Diabetes mellitus. 2. Hyperlipidemia. 3. Hypertension. 4. Coronary artery disease. 5. Gastroesophageal reflux disease. 6. Peripheral vascular disease. 7. History of coronary bypass graft surgery in 2001. 8. History of fem-pop bypass surgery in April 2017. 9. Wound infection of the surgical site with MSSA and Pseudomonas. 10. History of basal cell carcinoma. 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 Piperacillin/tazobactam. 2. Daptomycin. OBJECTIVE: Vital Signs Date Time Temp Pulse Resp B/P (MAP) Pulse Ox O2 Delivery O2 Flow Rate FiO2 07/22/17 11:50 82 07/22/17 08:05 97.9 75 16 161/76 (104) 95 07/22/17 08:00 Nasal Cannula 1.00 07/22/17 07:41 73 07/22/17 04:00 Room Air 07/22/17 04:00 97.9 72 18 133/64 (87) 95 07/22/17 04:00 85 07/22/17 00:00 73 07/22/17 00:00 98.0 72 19 138/65 (89) 97 07/22/17 00:00 Nasal Cannula 1.00 07/21/17 21:01 94 07/21/17 20:00 Room Air 07/21/17 20:00 77 07/21/17 19:20 98.4 87 20 111/56 (74) 07/21/17 16:30 97.6 82 16 107/58 (74) 93 07/21/17 15:47 74 Laboratory Tests Test 07/22/17 12:01 Hemoglobin 10.1 GM/DL Hematocrit 31.9 % IMAGING: Aorta w/Runoff CTA 07/19/17 0000 Signed Impressions: Service Date/Time: Wednesday, July 19, 2017 16:32 - CONCLUSION: No significant aortoiliac inflow lesions Patent bilateral femoral to above knee bypass conduits. Fluid in the indurated changes around the bypass distally on the left worrisome for infection as indicated clinically. Tenuous calf runoff bilaterally Leno Amaya MD Chest X-Ray 07/18/17 0800 Signed Impressions: Service Date/Time: Tuesday, July 18, 2017 08:48 - CONCLUSION: Stable appearance with mild central engorgement of the central vessels. Armando Wright MD PHYSICAL EXAMINATION General: No acute distress. She is awake and alert and oriented. HEENT: Pupils reactive to light. No icterus. No conjunctival erythema. Oropharynx - moist mucosa without lesions. Neck: Supple without adenopathy or swelling. Lungs: Bilateral rhonchi. No accessory muscle use. HEART: slight systolic murmur at the left sternal border. No rubs or gallops. Abdomen: Obese, soft, no tenderness appreciated. Extremities: The right inner thigh wound is clean and without drainage. No tenderness on palpation. No erythema. Skin: No diffuse rash. Neuro: There are no gross focal findings. Psych: Pleasant, calm and cooperative. IMPRESSION 1. Postop wound infection of the left thigh. Prior culture with MSSA and Pseudomonas. Repeat culture has no growth. 2. Bloody stools. 3. Abnormal urinalysis. Unremarkable culture. 4. Acute renal failure. RECOMMENDATIONS 1. Stop Zosyn. 2. Stop Cubicin adjusted for renal function. 3. The thigh wound culture has no growth and looks clean therefore antibiotics should be discontinued. 4. Check stool c. dif. Previously ordered by Dr Baeza but sample was not yet obtained. 5. Monitor clinical status. Follow up for the wound with ID Dr Sparks on discharge. He had seen her previously. Jaswinder Heart MD Jul 22, 2017 13:20
[2017-07-22] MEDS: ATORVASTATIN 40 MG TAB PO SCH (20:52)
[2017-07-23] VITALS (11 sets, daily range): BP systolic 134–178; BP diastolic 66–93; PULSE 63–101; RESP 18–20; TEMP 97.5–98.4; O2SAT 94–97
[2017-07-23] MEDS: methylPREDNISolone SOD SUCC 125 MG/2 ML VIAL IV PUSH SCH ×4 (00:39→17:40)
[2017-07-23] MEDS: guaiFENesin/CODEINE SYRUP 200 MG/20 MG/10 ML CUP PO PRN ×2 (03:51→08:50)
[2017-07-23] MEDS: NYSTATIN 100,000 U/GM PWD 15 GM BTL TOPICAL SCH ×3 (05:19→21:45)
--- NOTE | 2017-07-23 07:52 | HHI.GIFU ---
Subjective Remarks Pt in bedside chair, ordering breakfast Reports BM yesterday, denies any bleeding Currently bleeding from nose Denies nausea, vomiting, abdominal pain (Cathleen Mejia) Objective Vitals I&O Vital Signs Date Time Temp Pulse Resp B/P (MAP) Pulse Ox O2 Delivery O2 Flow Rate FiO2 07/23/17 07:49 98.4 73 178/86 (116) 95 07/23/17 04:35 63 07/23/17 04:00 Room Air 07/23/17 04:00 98.0 72 19 142/80 (100) 97 07/23/17 00:00 97.5 73 20 138/66 (90) 96 07/23/17 00:00 Room Air 07/22/17 23:51 61 07/22/17 20:57 96 07/22/17 20:50 Room Air 07/22/17 20:07 71 07/22/17 20:00 97.9 100 20 126/68 (87) 99 07/22/17 16:05 97.7 79 16 165/74 (104) 96 07/22/17 15:39 67 07/22/17 12:05 98.0 78 16 139/64 (89) 96 07/22/17 11:50 82 07/22/17 08:05 97.9 75 16 161/76 (104) 95 07/22/17 08:00 Nasal Cannula 1.00 I/O 07/22/17 07/22/17 07/22/17 07/23/17 07/23/17 07/23/17 07:00 15:00 23:00 07:00 15:00 23:00 Intake Total 790 ml 50 ml 420 ml 200 ml Output Total 300 ml 900 ml Balance 490 ml 50 ml 420 ml -700 ml Intake Oral 240 ml 420 ml 200 ml IV Total 550 ml 50 ml Output Urine Total 300 ml 900 ml # Voids 1 5 # Bowel Movements 1 1 Laboratory Laboratory Tests Test 07/22/17 12:01 07/22/17 14:00 Hemoglobin 10.1 Hematocrit 31.9 Stool C. difficile Toxin (PCR) NEGATIVE Stl C. difficile Toxin Epiderm 027 PRESUMPTIVE NEGATIVE Date/Time Source Procedure Growth Status 07/18/17 18:55 Blood Peripheral Aerobic Blood Culture - Preliminary NO GROWTH IN 4 DAYS Resulted 07/18/17 18:55 Blood Peripheral Anaerobic Blood Culture - Preliminary NO GROWTH IN 4 DAYS Resulted 07/22/17 14:00 Stool Stool Pending Received 07/17/17 14:36 Nasal Washing Influenza Types A,B Antigen (SUNNY) - Final NEGATIVE FOR FLU A AND B ANTIGEN.... Complete 07/18/17 16:20 Urine Random Urine Urine Culture - Final <10,000 CFU/ML MIXED GRAM POSITIVE FL... Complete 07/20/17 14:00 Wound Thigh Gram Stain - Final Complete 07/20/17 14:00 Wound Thigh Wound Culture - Final NO GROWTH IN 72 HRS.--AEROBICALLY OR ... Complete Imaging Last Impressions Chest CT 07/21/17 0000 Signed Impressions: Service Date/Time: Friday, July 21, 2017 10:07 - CONCLUSION: Negative noncontrast CT thorax. Armando Wright MD Aorta w/Runoff CTA 07/19/17 0000 Signed Impressions: Service Date/Time: Wednesday, July 19, 2017 16:32 - CONCLUSION: No significant aortoiliac inflow lesions Patent bilateral femoral to above knee bypass conduits. Fluid in the indurated changes around the bypass distally on the left worrisome for infection as indicated clinically. Tenuous calf runoff bilaterally Leno Amaya MD Chest X-Ray 07/18/17 0800 Signed Impressions: Service Date/Time: Tuesday, July 18, 2017 08:48 - CONCLUSION: Stable appearance with mild central engorgement of the central vessels. Armando Wright MD Physical Exam HEENT: Normocephalic; atraumatic CHEST: Even/unlabored ABDOMEN: Soft, nondistended, nontender; bowel sounds active EXTREMITIES: No clubbing, cyanosis, or edema. SKIN: Normal; no rash; no jaundice. 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 (Cathleen Mejia) Assessment and Plan Plan ASSESSMENT - hematochezia - 1 episode today. no prior hx GIB. on xarelto for clot in leg. no recent colonoscopy, last was done "years ago" in [place] and normal per pt. Recommended she have colonoscopy but she declines at this time. - anemia - mild, microcytic, HH is stable. likely multifactorial - COPD exacerbation per primary (07/23) --> Pt with no GI complaints at this time, reports BM yesterday, denies blood in stool. H/H remains stable, currently 10.1/31.9. Pt still refusing any GI procedures at this time. PLAN - Monitor H/H - Notify GI of active bleeding - We will sign off, please reconsult if pt decides to proceed with colonoscopy - Have pt follow up with GI in office after discharge Pt has been seen and examined by myself and Dr. Leo and this note is written on his behalf (Cathleen Mejia) Physician Comments Seen and examined with RIP, no active bleeding reported. C. Diff -ve. Does not want any gi shannon. GI will sign off, reconsult as needed. Thank you (Nic Leo MD) Cathleen Mejia Jul 23, 2017 07:52 Nic Leo MD Jul 23, 2017 19:21
[2017-07-23] MEDS: RESP: ACETYLCYSTEINE 20% 30 ML NEB NEB SCH ×4 (08:00→20:05)
[2017-07-23] MEDS: MEDIUM DOSE INSULIN NOVOLOG SUPPLEMENTAL SCALE SQ SCH ×4 (08:51→21:00)
[2017-07-23] MEDS: ISOSORBIDE MONONITRATE 60 MG CR TAB (IMDUR) PO SCH (08:53)
[2017-07-23] MEDS: guaiFENesin E.R. 600 MG TAB PO SCH ×2 (08:53→21:43)
[2017-07-23] MEDS: METOPROLOL TARTRATE 50 MG TAB PO SCH ×2 (08:53→21:44)
[2017-07-23] MEDS: LISINOPRIL 5 MG TAB PO SCH (08:53)
[2017-07-23] MEDS: PANTOPRAZOLE SOD 20 MG DELAYED RELEASE TAB PO SCH (08:53)
[2017-07-23] MEDS: LORATADINE 10 MG TAB PO SCH (08:53)
[2017-07-23] MEDS: SODIUM CHLORIDE 0.9% FLUSH 10 ML FLUSH IV FLUSH SCH ×2 (08:54→21:44)
[2017-07-23] MEDS: RESP: ALBUTEROL 2.5 MG/IPRATROPIUM 0.5 MG NEB (SCH) NEB ×4 (09:31→20:05)
[2017-07-23] MEDS: RESP: BUDESONIDE 0.5 MG/2 ML NEB NEB SCH ×2 (09:31→20:05)
--- NOTE | 2017-07-23 09:43 | HHI.PR ---
Subjective Remarks pt had episode of rectal bleeding yesterday. she refused endoscopy Objective Vitals heart reg lung wheeze/rhonci dustin abd s/nt ext left inner thigh surgical wound with andres Vital Signs Date Time Temp Pulse Resp B/P (MAP) Pulse Ox O2 Delivery O2 Flow Rate FiO2 07/23/17 09:32 95 07/23/17 07:49 98.4 73 178/86 (116) 95 07/23/17 07:47 101 07/23/17 07:20 Room Air 07/23/17 04:35 63 07/23/17 04:00 Room Air 07/23/17 04:00 98.0 72 19 142/80 (100) 97 07/23/17 00:00 97.5 73 20 138/66 (90) 96 07/23/17 00:00 Room Air 07/22/17 23:51 61 07/22/17 20:57 96 07/22/17 20:50 Room Air 07/22/17 20:07 71 07/22/17 20:00 97.9 100 20 126/68 (87) 99 07/22/17 16:05 97.7 79 16 165/74 (104) 96 07/22/17 15:39 67 07/22/17 12:05 98.0 78 16 139/64 (89) 96 07/22/17 11:50 82 Result Diagram: 07/22/17 1201 07/22/17 0600 Imaging Last Impressions Chest X-Ray 07/18/17 0800 Signed Impressions: Service Date/Time: Tuesday, July 18, 2017 08:48 - CONCLUSION: Stable appearance with mild central engorgement of the central vessels. Armando Wright MD Procedures none A/P Problem List: (1) COPD exacerbation ICD Codes: J44.1 - Chronic obstructive pulmonary disease with (acute) exacerbation Status: Acute Plan: This is a 81 year old female patient with a past medical history which includes CAD s/p CABG 2001, COPD, HTN, hyperlipidemia, GERD and PAD s/p femoropopliteal bypass performed by Dr. Aviles 04/2017 complicated by infection requiring I&D. Patient recently DC from [facility] 07/12/2017. Patient presents to the ER at [facility] today with c/o cough. copd exacerbation. not improving. solumedrol/nebs/ budesonide/mucinex/claritin on abx for leg....no atypical coverage Pt discouraged as these respiratory sx's have been ongoing from previous hospitalization at [facility] and now. pulmonary opinion pending. CT chest no edema/pna (2) Open wound of left thigh ICD Codes: S71.102A - Unspecified open wound, left thigh, initial encounter Status: Acute Plan: PAD s/p femoropopliteal bypass performed by Dr. Aviles 05/21/2017 complicated by infection requiring hospitalization 06/16/17 - 06/25/17 Culture at that time grew MSSA and Pseudomonas patient was DC to rehab on IV Zosyn patient then readmitted to [facility] 07/09/17 underwent a incision, debridement and drainage of left thigh wound. Surgical wounds were negative Patient DC on Doxycycline 100 mg PO BID for 4 weeks and Levaquin 500 mg PO daily for 28 days. Patient stopped taking these 07/16/17 due to GI upset Wound culture obtained, BC x 2 requested, UA C&S Discussed case with Vascular surgery Dr. Berger who feels this is likely a superficial infection of distal bypass surgical site but recommending CTA with runoff to evaluate graft Start patient on Vancomycin and Zosyn Consult I&D, appreciate assistance continued Zosyn, DC Vancomycin, start Cubicin at renal dose - no surgical intervention planned per vascular -final ID reccs are to stop all abx (3) Rectal bleeding ICD Codes: K62.5 - Hemorrhage of anus and rectum Status: Acute Plan: pt had rectal bleeding on 07/22 seen by gi but refused endoscopy her xarelto placed on hold xarelto was started on 03/01/17 for left leg dvt.... ..so will discuss with her pcp about holding (4) DVT (deep venous thrombosis) ICD Codes: I82.409 - Acute embolism and thrombosis of unspecified deep veins of unspecified lower extremity Status: Chronic (5) Fluid overload ICD Codes: E87.70 - Fluid overload, unspecified Status: Acute Plan: pt was fluid overloaded on presentation and was diuresed. hold diuretic as she was overdiuresed. (6) PAD (peripheral artery disease) ICD Codes: I73.9 - Peripheral vascular disease, unspecified Status: Chronic Plan: PAD s/p femoropopliteal bypass performed by Dr. Aviles 04/2017 complicated by infection requiring I&D see above (7) CAD (coronary artery disease) ICD Codes: I25.10 - Atherosclerotic heart disease of [place] coronary artery without angina pectoris Status: Chronic Plan: Continue patient's home Lipitor 40 mg PO QHS and Isosorbide 120 mg PO daily (8) Hypertension ICD Codes: I10 - Hypertension Status: Chronic Plan: Continue patient's home Lisinopril 5 mg PO daily Continue home metoprolol 50 my PO BID Monitor trend (9) Hyperlipidemia ICD Codes: E78.5 - Hyperlipidemia Status: Chronic Plan: Continue home Simvastatin (10) GERD (gastroesophageal reflux disease) ICD Codes: K21.9 - GERD (gastroesophageal reflux disease) Status: Chronic (11) Diabetes mellitus ICD Codes: E11.9 - Type 2 diabetes mellitus without complications Status: Chronic Plan: diabetic diet accu check ACHS hold oha. Problem Qualifiers (1) Diabetes mellitus: Qualified Codes: E11.8 - Type 2 diabetes mellitus with unspecified complications Gilson Srinivasan MD Jul 23, 2017 09:43
[2017-07-23] MEDS: ATORVASTATIN 40 MG TAB PO SCH (21:44)
[2017-07-24] VITALS (13 sets, daily range): BP systolic 133–169; BP diastolic 62–86; PULSE 62–93; RESP 16–21; TEMP 97.5–98.4; O2SAT 95–97
[2017-07-24] MEDS: methylPREDNISolone SOD SUCC 125 MG/2 ML VIAL IV PUSH SCH ×4 (01:34→23:20)
[2017-07-24] MEDS: guaiFENesin/CODEINE SYRUP 200 MG/20 MG/10 ML CUP PO PRN ×2 (01:59→21:21)
[2017-07-24] MEDS: NYSTATIN 100,000 U/GM PWD 15 GM BTL TOPICAL SCH ×3 (05:12→21:21)
--- NOTE | 2017-07-24 07:06 | MB ---
cc: RICK GAGNON M.D., JOHN DATE OF CONSULTATION 07/23/2017 REASON FOR CONSULTATION Persistent cough and bronchitis. HISTORY OF PRESENT ILLNESS This is an 81-year-old lady who had a femoral-popliteal bypass graft on the left, May 16, 2017. She had an infection at the operative site requiring incision and drainage of an abscess formation, subsequently treated with antibiotic therapy. The patient was discharged from [facility] on 07/12/2017. Postoperatively she developed a persistent cough with wheezing and chest congestion and was bringing up very little mucus. She denied any fevers or chills. She was short of breath and thus came to the emergency room and was admitted for further evaluation. The patient has had been on vancomycin and Zosyn and has been evaluated by Infectious Disease and is continued on Zosyn presently. The patient, however, is complaining of wheezing and chest tightness but unable to bring up much mucus. PAST MEDICAL HISTORY 1. CABG in 2001. 2. Coronary artery disease. 3. Hypertension. 4. Hyperlipidemia. 5. Gastroesophageal reflux. 6. Femoral-popliteal bypass with infection of the left thigh at the site of surgery. HABITS The patient does not smoke and drinks alcohol rarely. In the past she smoked for about 40 years, 1-2 packs per day. FAMILY HISTORY Significant for coronary artery disease. 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 She has leg swelling. She complains of pain in the left leg and has a dressing on the leg. She has postnasal drip, cough and wheezing. Denies hemoptysis. There are no fevers or chills. No abdominal pains. No urinary symptoms. Denies depression or anxiety. She has trouble sleeping due to persistent cough at night. PHYSICAL EXAMINATION GENERAL: This is a moderately overweight elderly lady who is pale and mildly dyspneic at rest. VITAL SIGNS: Blood pressure 140/70, pulse 90, respirations 22, temperature 98.2. HEENT: Head is normocephalic. Pupils are reactive. Tongue is dry. Throat is injected. Nasal mucosa is edematous. NECK: Supple. No bruits. No thyroid enlargement. CHEST: Distant breath sounds with wheezes throughout both lung coon. No crackles on either side. HEART: The heart sounds are irregular, S1 and S2. No murmur or S3. ABDOMEN: Soft, protuberant. No masses. No organomegaly. No tenderness. Bowel sounds are active. EXTREMITIES: There is a dressing on the left thigh. Peripheral pulses are diminished with minimal edema. No calf tenderness. NEUROLOGIC: Reflexes are 1+. No gross motor deficits. Cranial nerves are grossly intact. RECTAL: Deferred. IMPRESSION 1. Persistent bronchitis with reactive airways. 2. Chronic obstructive pulmonary disease with chronic bronchitis. 3. Status post femoral-popliteal bypass grafting with wound infection status post incision and drainage. 4. Hyperlipidemia. 5. Hypertension. PLAN 1. The patient has been placed on nebulized DuoNeb solution q.i.d. Also, added Symbicort 160/4.5, two puffs twice daily. 2. Budesonide will be discontinued. 3. Continue the antibiotic coverage per the infectious disease service. 4. Continue the O2 at 2 liters nasal cannula. Keep sats greater than 92. 5. Pulmonary function study to be done at the bedside with bronchodilator study. 6. Solu-Medrol to be tapered down to 40 mg IV q.6h. 7. Will repeat the CBC. 8. Send the sputum for Gram stain and culture. 9. Follow-up chest x-ray on Wednesday. Thank you, Dr. Gagnon, for this consultation. MD ROB Victor/ROSENDA /11:09 PM /6:47 AM
[2017-07-24] MEDS: RESP: ALBUTEROL 2.5 MG/IPRATROPIUM 0.5 MG NEB (SCH) NEB ×4 (08:00→19:46)
[2017-07-24] MEDS: RESP: ACETYLCYSTEINE 20% 30 ML NEB NEB SCH ×4 (08:00→19:48)
[2017-07-24] MEDS: BUDESONIDE-FORMOTEROL 160/4.5 MCG INHALER INH SCH ×2 (09:00→21:00)
--- NOTE | 2017-07-24 09:06 | HHI.PR ---
Subjective Remarks feels some improvement of breathing. Objective Vitals heart reg lung rhonci/wheeze improved abd s/nt ext left thigh incision/andres. no drainage. Vital Signs Date Time Temp Pulse Resp B/P (MAP) Pulse Ox O2 Delivery O2 Flow Rate FiO2 07/24/17 04:00 98.1 69 16 166/77 (106) 95 07/24/17 00:00 76 07/24/17 00:00 Room Air 07/24/17 00:00 98.3 75 18 133/62 (85) 96 07/23/17 20:08 96 07/23/17 20:00 98.4 100 20 146/69 (94) 95 07/23/17 20:00 Room Air 07/23/17 20:00 84 07/23/17 16:00 101 07/23/17 16:00 97.8 84 18 151/93 (112) 96 07/23/17 12:17 76 07/23/17 12:00 97.9 72 18 134/67 (89) 94 07/23/17 09:32 95 Result Diagram: 07/22/17 1201 07/22/17 0600 Imaging Last Impressions Chest X-Ray 07/18/17 0800 Signed Impressions: Service Date/Time: Tuesday, July 18, 2017 08:48 - CONCLUSION: Stable appearance with mild central engorgement of the central vessels. Armando Wright MD Procedures none A/P Problem List: (1) COPD exacerbation ICD Codes: J44.1 - Chronic obstructive pulmonary disease with (acute) exacerbation Status: Acute Plan: This is a 81 year old female patient with a past medical history which includes CAD s/p CABG 2001, COPD, HTN, hyperlipidemia, GERD and PAD s/p femoropopliteal bypass performed by Dr. Aviles 04/2017 complicated by infection requiring I&D. Patient recently DC from [facility] 07/12/2017. Patient presents to the ER at [facility] today with c/o cough. copd exacerbation.slow improvement solumedrol/nebs/ budesonide/mucinex/claritin Pt discouraged as these respiratory sx's have been ongoing from previous hospitalization at [facility] and now. pulmonary opinion noted CT chest no edema/pna I will plan to d/c her home on Wednesday morning. arrange hhc and nebulizer. (2) Open wound of left thigh ICD Codes: S71.102A - Unspecified open wound, left thigh, initial encounter Status: Acute Plan: PAD s/p femoropopliteal bypass performed by Dr. Aviles 05/21/2017 complicated by infection requiring hospitalization 06/16/17 - 06/25/17 Culture at that time grew MSSA and Pseudomonas patient was DC to rehab on IV Zosyn patient then readmitted to [facility] 07/09/17 underwent a incision, debridement and drainage of left thigh wound. Surgical wounds were negative Patient DC on Doxycycline 100 mg PO BID for 4 weeks and Levaquin 500 mg PO daily for 28 days. Patient stopped taking these 07/16/17 due to GI upset Wound culture obtained, BC x 2 requested, UA C&S Discussed case with Vascular surgery Dr. Berger who feels this is likely a superficial infection of distal bypass surgical site but recommending CTA with runoff to evaluate graft Start patient on Vancomycin and Zosyn Consult I&D, appreciate assistance continued Zosyn, DC Vancomycin, start Cubicin at renal dose - no surgical intervention planned per vascular -final ID reccs are to stop all abx (3) Rectal bleeding ICD Codes: K62.5 - Hemorrhage of anus and rectum Status: Acute Plan: pt had rectal bleeding on 07/22 seen by gi but refused endoscopy her xarelto placed on hold xarelto was started on 03/01/17 for left leg dvt.... ..so will discuss with her pcp about holding (4) DVT (deep venous thrombosis) ICD Codes: I82.409 - Acute embolism and thrombosis of unspecified deep veins of unspecified lower extremity Status: Chronic (5) Fluid overload ICD Codes: E87.70 - Fluid overload, unspecified Status: Acute Plan: pt was fluid overloaded on presentation and was diuresed. hold diuretic as she was overdiuresed. (6) PAD (peripheral artery disease) ICD Codes: I73.9 - Peripheral vascular disease, unspecified Status: Chronic Plan: PAD s/p femoropopliteal bypass performed by Dr. Aviles 04/2017 complicated by infection requiring I&D see above (7) CAD (coronary artery disease) ICD Codes: I25.10 - Atherosclerotic heart disease of [place] coronary artery without angina pectoris Status: Chronic Plan: Continue patient's home Lipitor 40 mg PO QHS and Isosorbide 120 mg PO daily (8) Hypertension ICD Codes: I10 - Hypertension Status: Chronic Plan: Continue patient's home Lisinopril 5 mg PO daily Continue home metoprolol 50 my PO BID Monitor trend (9) Hyperlipidemia ICD Codes: E78.5 - Hyperlipidemia Status: Chronic Plan: Continue home Simvastatin (10) GERD (gastroesophageal reflux disease) ICD Codes: K21.9 - GERD (gastroesophageal reflux disease) Status: Chronic (11) Diabetes mellitus ICD Codes: E11.9 - Type 2 diabetes mellitus without complications Status: Chronic Plan: diabetic diet accu check ACHS hold oha. Problem Qualifiers (1) Diabetes mellitus: Qualified Codes: E11.8 - Type 2 diabetes mellitus with unspecified complications Gilson Srinivasan MD Jul 24, 2017 09:05
[2017-07-24] MEDS ORDERED: NEBULIZER/ADULT1 KIT (09:07)
[2017-07-24] MEDS: METOPROLOL TARTRATE 50 MG TAB PO SCH ×2 (10:08→21:21)
[2017-07-24] MEDS: ISOSORBIDE MONONITRATE 60 MG CR TAB (IMDUR) PO SCH (10:08)
[2017-07-24] MEDS: LISINOPRIL 5 MG TAB PO SCH (10:08)
[2017-07-24] MEDS: PANTOPRAZOLE SOD 20 MG DELAYED RELEASE TAB PO SCH (10:09)
[2017-07-24] MEDS: MEDIUM DOSE INSULIN NOVOLOG SUPPLEMENTAL SCALE SQ SCH ×4 (10:09→21:21)
[2017-07-24] MEDS: LORATADINE 10 MG TAB PO SCH (10:09)
[2017-07-24] MEDS: guaiFENesin E.R. 600 MG TAB PO SCH ×2 (10:09→21:20)
[2017-07-24] MEDS: SODIUM CHLORIDE 0.9% FLUSH 10 ML FLUSH IV FLUSH SCH ×2 (10:09→21:21)
--- NOTE | 2017-07-24 10:40 | RADRPT ---
EXAM DATE/TIME: 07/24/2017 09:41 [place] COMPARISON: No previous studies available for comparison. INDICATIONS : Reevaluate DVT. MEDICAL HISTORY : Chronic obstructive pulmonary disease. Deep venous thrombosis. Hypercholesterolemia. Peripheral ar david disease. Coronary artery disease. Hypertension. GERD. Diabetes.Myocardial infarction. Anticoagul ant therapy. Emphysema. Sleep apnea. Arthritis. MSSA SURGICAL HISTORY : CABG Coronary artery stent. Abdominal aortic aneurysm repair. Bilateral cataract removal. Left fem-p op bypass. ENCOUNTER: Initial ACUITY: 1 day PAIN SCORE: 6/10 LOCATION: Left leg. TECHNIQUE: Venous ultrasound of the leg was performed from the inguinal ligament to the proximal calf. Real-lisandra e, color Doppler and spectral tracing, compression and augmentation techniques were used. FINDINGS: There is a minimal area of nonocclusive thrombus in the common femoral vein. There is nonocclusive th rombus in the left popliteal vein. There are areas of thrombus seen in the left posterior tibial and peroneal veins. The greater saphenous vein and superficial femoral veins appear patent. CONCLUSION: Minimal nonocclusive thrombus in the common femoral vein and left popliteal vein. There is occlusive thrombus in the left posterior tibial and peroneal veins. Leno Yoo MD on July 24, 2017 at 10:32 Board Certified Radiologist. This report was verified electronically.
--- NOTE | 2017-07-24 12:48 | HHI.PR ---
Subjective Remarks Patient is lying in bed in NAD. On room air oxygen. Afebrile. Objective Vital Signs Vital Signs Date Time Temp Pulse Resp B/P (MAP) Pulse Ox O2 Delivery O2 Flow Rate FiO2 07/24/17 08:55 98.4 68 17 169/86 (113) 95 07/24/17 04:00 98.1 69 16 166/77 (106) 95 07/24/17 00:00 76 07/24/17 00:00 Room Air 07/24/17 00:00 98.3 75 18 133/62 (85) 96 07/23/17 20:08 96 07/23/17 20:00 98.4 100 20 146/69 (94) 95 07/23/17 20:00 Room Air 07/23/17 20:00 84 07/23/17 16:00 101 07/23/17 16:00 97.8 84 18 151/93 (112) 96 I/O 07/23/17 07/23/17 07/23/17 07/24/17 07/24/17 07/24/17 07:00 15:00 23:00 07:00 15:00 23:00 Intake Total 200 ml 600 ml 200 ml Output Total 900 ml 700 ml Balance -700 ml 600 ml -500 ml Intake Oral 200 ml 600 ml 200 ml Output Urine Total 900 ml 700 ml # Voids 2 1 # Bowel Movements 1 1 0 Result Diagram: 07/22/17 1201 07/22/17 0600 Other Results Last Impressions Lower Extremity Ultrasound 07/24/17 0000 Signed Impressions: Service Date/Time: Monday, July 24, 2017 09:41 - CONCLUSION: Minimal nonocclusive thrombus in the common femoral vein and left popliteal vein. There is occlusive thrombus in the left posterior tibial and peroneal veins. Leno Yoo MD Chest CT 07/21/17 0000 Signed Impressions: Service Date/Time: Friday, July 21, 2017 10:07 - CONCLUSION: Negative noncontrast CT thorax. Armando Wright MD Aorta w/Runoff CTA 07/19/17 0000 Signed Impressions: Service Date/Time: Wednesday, July 19, 2017 16:32 - CONCLUSION: No significant aortoiliac inflow lesions Patent bilateral femoral to above knee bypass conduits. Fluid in the indurated changes around the bypass distally on the left worrisome for infection as indicated clinically. Tenuous calf runoff bilaterally Leno Amaya MD Chest X-Ray 07/18/17 0800 Signed Impressions: Service Date/Time: Tuesday, July 18, 2017 08:48 - CONCLUSION: Stable appearance with mild central engorgement of the central vessels. Armando Wright MD Objective Remarks GENERAL: Patient is 81 yo lying in bed in NAD SKIN: Warm and dry. HEAD: Normocephalic. EYES: No scleral icterus. No injection or drainage. NECK: Supple, trachea midline. No JVD or lymphadenopathy. CARDIOVASCULAR: Regular rate and rhythm without murmurs, gallops, or rubs. RESPIRATORY: Breath sounds equal bilaterally. No accessory muscle use. GASTROINTESTINAL: Abdomen soft, non-tender, nondistended. MUSCULOSKELETAL: No cyanosis, or edema. Neuro: Awake and alert A/P Assessment and Plan 1. Persistent bronchitis with reactive airways. 2. COPD with chronic bronchitis. 3. Status post femoral-popliteal bypass grafting with wound infection s/p I&D 4. Hyperlipidemia. 5. Hypertension. PLAN Oxygen PRN keep sat >92% Bronchodilators( DuoNeb , Symbicort ) PFT with bronchodilator study to asses severity of her obstructive lung disease. Decrease Solu-Medrol [address] chest showed no consolidation or nodules Abx per ID GI/DVT prophylaxis- per primary team Collette Varner MD Jul 24, 2017 12:48
[2017-07-24] MEDS: ATORVASTATIN 40 MG TAB PO SCH (21:20)
[2017-07-25] VITALS (11 sets, daily range): BP systolic 136–177; BP diastolic 75–89; PULSE 60–91; RESP 18–20; TEMP 97.7–99.1; O2SAT 95–98
[2017-07-25] MEDS: NYSTATIN 100,000 U/GM PWD 15 GM BTL TOPICAL SCH ×3 (06:00→22:02)
[2017-07-25] MEDS: methylPREDNISolone SOD SUCC 125 MG/2 ML VIAL IV PUSH SCH ×3 (06:01→17:38)
[2017-07-25] MEDS: RESP: ACETYLCYSTEINE 20% 30 ML NEB NEB SCH (08:00)
[2017-07-25] MEDS: MEDIUM DOSE INSULIN NOVOLOG SUPPLEMENTAL SCALE SQ SCH ×2 (08:00→12:00)
[2017-07-25] MEDS: RESP: ALBUTEROL 2.5 MG/IPRATROPIUM 0.5 MG NEB (SCH) NEB ×4 (08:02→19:45)
[2017-07-25 08:16] LABS: HEMATOCRIT 33.2 % (35.0-46.0); HEMOGLOBIN 10.5 GM/DL (11.6-15.3)
[2017-07-25] MEDS: LORATADINE 10 MG TAB PO SCH (09:04)
[2017-07-25] MEDS: ISOSORBIDE MONONITRATE 60 MG CR TAB (IMDUR) PO SCH (09:04)
[2017-07-25] MEDS: LISINOPRIL 5 MG TAB PO SCH (09:04)
[2017-07-25] MEDS: guaiFENesin E.R. 600 MG TAB PO SCH ×2 (09:04→22:01)
[2017-07-25] MEDS: PANTOPRAZOLE SOD 20 MG DELAYED RELEASE TAB PO SCH (09:04)
[2017-07-25] MEDS: METOPROLOL TARTRATE 50 MG TAB PO SCH ×2 (09:04→22:01)
[2017-07-25] MEDS: SODIUM CHLORIDE 0.9% FLUSH 10 ML FLUSH IV FLUSH SCH ×2 (09:06→22:08)
[2017-07-25] MEDS: BUDESONIDE-FORMOTEROL 160/4.5 MCG INHALER INH SCH ×2 (09:09→22:02)
--- NOTE | 2017-07-25 09:36 | HHI.PR ---
Subjective Remarks breathing better no bleeding Objective Vitals heart reg lung course bs abd s/nt ext left incisional wound thigh. no purelent d/c. andres. Vital Signs Date Time Temp Pulse Resp B/P (MAP) Pulse Ox O2 Delivery O2 Flow Rate FiO2 07/25/17 08:32 96 07/25/17 08:00 98.5 68 20 170/87 (114) 96 07/25/17 04:00 97.7 63 18 177/89 (118) 95 07/25/17 04:00 Room Air 07/25/17 03:47 60 07/24/17 23:58 Room Air 07/24/17 23:58 97.9 75 21 143/73 (96) 96 07/24/17 23:45 65 07/24/17 20:00 97.8 80 16 158/82 (107) 95 07/24/17 20:00 Room Air 07/24/17 19:50 95 21 07/24/17 19:45 81 07/24/17 16:55 97.5 68 18 139/71 (93) 97 07/24/17 16:00 75 07/24/17 12:55 97.8 62 17 147/76 (99) 96 Result Diagram: 07/25/17 0655 07/22/17 0600 Imaging Last Impressions Chest X-Ray 07/18/17 0800 Signed Impressions: Service Date/Time: Tuesday, July 18, 2017 08:48 - CONCLUSION: Stable appearance with mild central engorgement of the central vessels. Armando Wright MD Procedures none A/P Problem List: (1) COPD exacerbation ICD Codes: J44.1 - Chronic obstructive pulmonary disease with (acute) exacerbation Status: Acute Plan: This is a 81 year old female patient with a past medical history which includes CAD s/p CABG 2001, COPD, HTN, hyperlipidemia, GERD and PAD s/p femoropopliteal bypass performed by Dr. Aviles 04/2017 complicated by infection requiring I&D. Patient recently DC from [facility] 07/12/2017. Patient [place] [facility] today with c/o cough. copd exacerbation.slow improvement solumedrol/nebs/ budesonide/mucinex/claritin Pt discouraged as these respiratory sx's have been ongoing from previous hospitalization at [facility] and now. pulmonary opinion noted CT chest no edema/pna I will plan to d/c her home on Wednesday morning. arrange hhc and nebulizer. plan for prednisone taper (2) Rectal bleeding ICD Codes: K62.5 - Hemorrhage of anus and rectum Status: Acute Plan: pt had rectal bleeding on 07/22 seen by gi but refused endoscopy her xarelto placed on hold xarelto was started on 03/01/17 for left leg dvt.... ..so will discuss with her pcp about holding (3) Open wound of left thigh ICD Codes: S71.102A - Unspecified open wound, left thigh, initial encounter Status: Acute Plan: PAD s/p femoropopliteal bypass performed by Dr. Aviles 05/21/2017 complicated by infection requiring hospitalization 06/16/17 - 06/25/17 Culture at that time grew MSSA and Pseudomonas patient was DC to rehab on IV Zosyn patient then readmitted to [facility] 07/09/17 underwent a incision, debridement and drainage of left thigh wound. Surgical wounds were negative Patient DC on Doxycycline 100 mg PO BID for 4 weeks and Levaquin 500 mg PO daily for 28 days. Patient stopped taking these 07/16/17 due to GI upset Wound culture obtained, BC x 2 requested, UA C&S Discussed case with Vascular surgery Dr. Berger who feels this is likely a superficial infection of distal bypass surgical site but recommending CTA with runoff to evaluate graft Start patient on Vancomycin and Zosyn Consult I&D, appreciate assistance continued Zosyn, DC Vancomycin, start Cubicin at renal dose - no surgical intervention planned per vascular -final ID reccs are to stop all abx (4) DVT (deep venous thrombosis) ICD Codes: I82.409 - Acute embolism and thrombosis of unspecified deep veins of unspecified lower extremity Status: Chronic (5) Fluid overload ICD Codes: E87.70 - Fluid overload, unspecified Status: Acute Plan: (6) PAD (peripheral artery disease) ICD Codes: I73.9 - Peripheral vascular disease, unspecified Status: Chronic (7) CAD (coronary artery disease) ICD Codes: I25.10 - Atherosclerotic heart disease of [place] coronary artery without angina pectoris Status: Chronic (8) Hypertension ICD Codes: I10 - Hypertension Status: Chronic Plan: Continue patient's home Lisinopril 5 mg PO daily Continue home metoprolol 50 my PO BID Monitor trend (9) Hyperlipidemia ICD Codes: E78.5 - Hyperlipidemia Status: Chronic Plan: Continue home Simvastatin (10) GERD (gastroesophageal reflux disease) ICD Codes: K21.9 - GERD (gastroesophageal reflux disease) Status: Chronic (11) Diabetes mellitus ICD Codes: E11.9 - Type 2 diabetes mellitus without complications Status: Chronic Plan: Continue patient's home metformin 500 mg daily diabetic diet accu check ACHS monitor closely as patient may have hyperglycemia while on steroids Problem Qualifiers (1) Diabetes mellitus: Qualified Codes: E11.8 - Type 2 diabetes mellitus with unspecified complications Gilson Srinivasan MD Jul 25, 2017 09:36
--- NOTE | 2017-07-25 12:03 | HHI.PR ---
Subjective Remarks Patient is lying in chair in NAD. On room air oxygen. Afebrile. Objective Vital Signs Vital Signs Date Time Temp Pulse Resp B/P (MAP) Pulse Ox O2 Delivery O2 Flow Rate FiO2 07/25/17 08:32 96 07/25/17 08:00 98.5 68 20 170/87 (114) 96 07/25/17 04:00 97.7 63 18 177/89 (118) 95 07/25/17 04:00 Room Air 07/25/17 03:47 60 07/24/17 23:58 Room Air 07/24/17 23:58 97.9 75 21 143/73 (96) 96 07/24/17 23:45 65 07/24/17 20:00 97.8 80 16 158/82 (107) 95 07/24/17 20:00 Room Air 07/24/17 19:50 95 21 07/24/17 19:45 81 07/24/17 16:55 97.5 68 18 139/71 (93) 97 07/24/17 16:00 75 07/24/17 12:55 97.8 62 17 147/76 (99) 96 I/O 07/24/17 07/24/17 07/24/17 07/25/17 07/25/17 07/25/17 07:00 15:00 23:00 07:00 15:00 23:00 Intake Total 200 ml 820 ml Output Total 700 ml 1575 ml Balance -500 ml -755 ml Intake Oral 200 ml 820 ml Output Urine Total 700 ml 1575 ml # Voids 1 # Bowel Movements 0 1 Result Diagram: 07/25/17 0655 07/22/17 0600 Other Results Last Impressions Lower Extremity Ultrasound 07/24/17 0000 Signed Impressions: Service Date/Time: Monday, July 24, 2017 09:41 - CONCLUSION: Minimal nonocclusive thrombus in the common femoral vein and left popliteal vein. There is occlusive thrombus in the left posterior tibial and peroneal veins. Leno Yoo MD Chest CT 07/21/17 0000 Signed Impressions: Service Date/Time: Friday, July 21, 2017 10:07 - CONCLUSION: Negative noncontrast CT thorax. Armando Wright MD Aorta w/Runoff CTA 07/19/17 0000 Signed Impressions: Service Date/Time: Wednesday, July 19, 2017 16:32 - CONCLUSION: No significant aortoiliac inflow lesions Patent bilateral femoral to above knee bypass conduits. Fluid in the indurated changes around the bypass distally on the left worrisome for infection as indicated clinically. Tenuous calf runoff bilaterally Leno Amaya MD Chest X-Ray 07/18/17 0800 Signed Impressions: Service Date/Time: Tuesday, July 18, 2017 08:48 - CONCLUSION: Stable appearance with mild central engorgement of the central vessels. Armando Wright MD Objective Remarks GENERAL: Patient is 81 yo lying in chair in NAD SKIN: Warm and dry. HEAD: Normocephalic. EYES: No scleral icterus. No injection or drainage. NECK: Supple, trachea midline. No JVD or lymphadenopathy. CARDIOVASCULAR: Regular rate and rhythm without murmurs, gallops, or rubs. RESPIRATORY: Breath sounds equal bilaterally. No accessory muscle use. GASTROINTESTINAL: Abdomen soft, non-tender, nondistended. MUSCULOSKELETAL: No cyanosis, + edema. Neuro: Awake and alert A/P Assessment and Plan 1. Persistent bronchitis with reactive airways. 2. COPD with chronic bronchitis. 3. Status post femoral-popliteal bypass grafting with wound infection s/p I&D 4. Hyperlipidemia. 5. Hypertension. 6 DVT LE 7 Anemia H/H stable PLAN Oxygen PRN keep sat >92% Bronchodilators( DuoNeb , Symbicort ) PFT with bronchodilator study to asses severity of her obstructive lung disease. Decrease Solu-Medrol [address] chest showed no consolidation or nodules Abx per ID GI/DVT prophylaxis- per primary team- resume Xarelto( home med) discussed with Dr. Srinivasan. Collette Varner MD Jul 25, 2017 12:02
[2017-07-25] MEDS ORDERED: guaiFENesin ER PO (15:54)
[2017-07-25] MEDS ORDERED: Budeson-Formot 160-4.5 Mcg Inh INH (15:54)
[2017-07-25] MEDS ORDERED: ALBU0.08 NEB (15:54)
[2017-07-25] MEDS ORDERED: IPRA0.02 NEB (15:54)
[2017-07-25] MEDS ORDERED: PRED10 PO (15:54)
--- NOTE | 2017-07-25 15:55 | HHI.DCPOC ---
Discharge Care Plan Diagnosis: (1) Open wound of left thigh (2) PAD (peripheral artery disease) (3) COPD exacerbation (4) Rectal bleeding (5) DVT (deep venous thrombosis) (6) Bronchitis Goals to Promote Your Health * To prevent worsening of your condition and complications * To maintain your health at the optimal level Directions to Meet Your Goals Take your medications as prescribed Follow your dietary instruction Follow activity as directed Keep your appointments as scheduled Take your immunizations and boosters as scheduled If your symptoms worsen call your PCP, if no PCP go to Urgent Care Center or Emergency Room Smoking is Dangerous to Your Health. Avoid second hand smoke Call the 24-hour hour crisis hotline for domestic abuse at Gilson Srinivasan MD Jul 25, 2017 15:55
--- NOTE | 2017-07-25 15:56 | HHI.FF ---
Face to Face Verification Diagnosis: (1) COPD exacerbation (2) Bronchitis (3) Open wound of left thigh (4) Rectal bleeding (5) PAD (peripheral artery disease) (6) DVT (deep venous thrombosis) Physical Therapy Order: Evaluate and Treat, Improve ambulation Home Health Nursing Order: Medical education Signs/symptoms of disease process Medication education-adverse effect Wound care and dressing changes Nursing assessment with vital signs I have seen patient Zahida Serrano Burnsed on 07/25/17. My clinical findings support the need for the requested home health care services because: Deconditioned w/ increased weakness Limited ability to care for self I certify that my clinical findings support that this patient is homebound because: Hx COPD- exertion dyspnea/weakness Gilson Srinivasan MD Jul 25, 2017 15:55
[2017-07-25] MEDS: ATORVASTATIN 40 MG TAB PO SCH (22:08)
[2017-07-26 00:13] VITALS: BP 154/72; PULSE 69; RESP 20; TEMP 97.7; O2SAT 95
[2017-07-26] MEDS: methylPREDNISolone SOD SUCC 125 MG/2 ML VIAL IV PUSH SCH ×2 (01:05→06:38)
[2017-07-26 04:00] VITALS: BP 187/86; PULSE 65; RESP 19; TEMP 97.2; O2SAT 94
[2017-07-26] MEDS: NYSTATIN 100,000 U/GM PWD 15 GM BTL TOPICAL SCH (06:00)
[2017-07-26 08:00] VITALS: BP 173/80; PULSE 69; RESP 18; TEMP 97.9; O2SAT 97
[2017-07-26] MEDS: RESP: ALBUTEROL 2.5 MG/IPRATROPIUM 0.5 MG NEB (SCH) NEB (08:00)
[2017-07-26] MEDS ORDERED: cloNIDine HCL 0.1 MG TAB PO PRN (08:00)
[2017-07-26] MEDS: MEDIUM DOSE INSULIN NOVOLOG SUPPLEMENTAL SCALE SQ SCH ×2 (08:00→10:20)
[2017-07-26] MEDS: BUDESONIDE-FORMOTEROL 160/4.5 MCG INHALER INH SCH (09:00)
[2017-07-26] MEDS: SODIUM CHLORIDE 0.9% FLUSH 10 ML FLUSH IV FLUSH SCH (09:00)
[2017-07-26] MEDS: ISOSORBIDE MONONITRATE 60 MG CR TAB (IMDUR) PO SCH (10:18)
[2017-07-26] MEDS: guaiFENesin E.R. 600 MG TAB PO SCH (10:18)
[2017-07-26] MEDS: LORATADINE 10 MG TAB PO SCH (10:18)
[2017-07-26] MEDS: METOPROLOL TARTRATE 50 MG TAB PO SCH (10:18)
[2017-07-26] MEDS: PANTOPRAZOLE SOD 20 MG DELAYED RELEASE TAB PO SCH (10:19)
[2017-07-26] MEDS: LISINOPRIL 5 MG TAB PO SCH (10:19)
[2017-07-26 10:41] VITALS: O2SAT 97
== END 2017-07-26 10:40 | disposition home or self-care (01) | DRG 191 ==
LOC: NEPC 13:06 → NEDA 16:07 → N04B 17:10
PROVIDERS: ADMIT Hospitalist; ATTEND Hospitalist
DX: J44.1 Chronic obstructive pulmonary disease with (acute) exacerbation (principal); T81.4XXA Infection following a procedure, initial encounter; N17.9 Acute kidney failure, unspecified; E11.51 Type 2 diabetes mellitus with diabetic peripheral angiopathy without gangrene; Z79.84 Long term (current) use of oral hypoglycemic drugs; E87.70 Fluid overload, unspecified; K92.1 Melena; Z68.41 Body mass index [BMI] 40.0-44.9, adult; E66.9 Obesity, unspecified; I10 Essential (primary) hypertension; I25.10 Atherosclerotic heart disease of native coronary artery without angina pectoris; Z95.1 Presence of aortocoronary bypass graft; R04.0 Epistaxis; Z86.718 Personal history of other venous thrombosis and embolism; Z79.02 Long term (current) use of antithrombotics/antiplatelets; K21.9 Gastro-esophageal reflux disease without esophagitis; E78.5 Hyperlipidemia, unspecified; D50.9 Iron deficiency anemia, unspecified; R82.90 Unspecified abnormal findings in urine; Z86.14 Personal history of Methicillin resistant Staphylococcus aureus infection; Z23 Encounter for immunization; Z85.828 Personal history of other malignant neoplasm of skin; Z87.891 Personal history of nicotine dependence
CPT/HCPCS: 71046; 71250; 75635; 80048; 81001; 82948; 83735; 85014; 85018; 85025; 87040; 87070; 87086; 87205; 87328; 87329; 87493; 87506; 87804; 90732; 93005; 93306; 93971; 94640; 94664; 96374; J0878; J1815; J1940; J2543; J2930; J3370; J7040; J7050; J7608; J7626; Q9967

== ENCOUNTER 2017-12-18 03:06 | Observation (INO) ==
[2017-12-18] MEDS ORDERED: Piperacil/Tazo 4.5 GM Premix 4.5 GM/100 ML BAG IV.SIG STA (04:38)
[2017-12-18 05:03] LABS: Baso % (Auto) 0.5 % (0.0-2.0); Eos # (Auto) 0.1 th/mm3 (0.0-0.4); Eos % (Auto) 1.3 % (0.0-4.0); Hematocrit 39.7 % (35.0-46.0); Hemoglobin 12.5 gm/dL (11.6-15.3); Lymph # (Auto) 2.2 th/mm3 (1.0-4.8); Lymph % (Auto) 36.3 % (9.0-44.0); Mean Corpuscular HGB Conc 31.5 % (32.0-36.0); Mean Corpuscular Hemoglobin 23.9 pg (27.0-34.0); Mean Corpuscular Volume 75.8 fL (80.0-100.0); Mean Platelet Volume 7.5 fL (7.0-11.0); Mono # (Auto) 0.6 th/mm3 (0.0-0.9); Mono % (Auto) 9.6 % (0.0-8.0); Neut # (Auto) 3.1 th/mm3 (1.8-7.7); Neut % (Auto) 52.3 % (16.0-70.0); Platelet Count 245 th/mm3 (150-450); Red Blood Count 5.24 mil/mm3 (4.00-5.30); Red Cell Distribution Width 22.4 % (11.6-17.2)
--- NOTE | 2017-12-18 05:04 | ED ---
HPI General Chief complaint: Extremity Problem,Nontraumatic Stated complaint: Bilateral Leg Pain Time Seen by Provider: 12/18/17 04:31 Source: patient, RN notes reviewed and old records reviewed Mode of arrival: EMS Limitations: physical limitation History of Present Illness HPI Narrative: The patient is an 82-year-old female presenting with complaint of increasingly worsening bilateral leg pain. As per nurse report she is supposed to have a consultation for hospice on Wednesday however the patient is not sure why. Based on her past medical history on file is appears that she has coronary artery disease as well as diabetes. Patient is a poor historian unable to tell us how long her legs have been hurting and swollen. She lives alone. MD Complaint: extremity pain and extremity swelling Pain Consistency: constant Location: lower extremity Severity scale (1-10): 6 Quality: aching and sharp Radiation: none Relieving factors: nothing Exacerbating factors: walking and palpation Associated symptoms: denies other symptoms Related Data Home Medications Medication Instructions Recorded Confirmed Unable to Obtain Home Meds 12/18/17 12/18/17 Allergies Allergy/AdvReac Type Severity Reaction Status Date / Time rosuvastatin [From Crestor] Allergy Cramping Verified 12/18/17 04:39 of the Muscles Review of Systems ROS Unobtainable All other systems reviewed negative except as stated in HPI Constitutional Reports body ache(s), Denies chills, Denies fever(s), Denies increased appetite and Denies night sweats Eyes Reports system reviewed and no additional complaints, except as docu ENT Reports system reviewed and no additional complaints, except as docu Cardiovascular Reports system reviewed and no additional complaints, except as docu Respiratory Reports system reviewed and no additional complaints, except as docu Gastrointestinal Reports system reviewed and no additional complaints, except as docu Genitourinary Reports system reviewed and no additional complaints, except as docu Musculoskeletal Reports myalgias Comments: Pain and swelling bilateral lower legs Integumentary/Breasts Comments: rash n B/L LOWER EXTREMITIES Neurologic Reports system reviewed and no additional complaints, except as docu and Reports memory loss [facility] Medical History Medical History Diabetes (Acute) Heart attack (Acute) Surgical History Surgical History History of orthopedic surgery (Acute) Social History Social History Substance History: No History of Abuse Smoking Status: Former smoker How Often Do You Have a Drink Containing Alcohol: Monthly or less Recent Travel in [facility] within the Last 8 Weeks: No Recent Out of Country Travel within the Last 8 Weeks: No Immunization History Tetanus Immunization: Unsure Hx Influenza Vaccine This Season: No Exam Narrative Exam Narrative: GENERAL: Alert and oriented in no distress. SKIN: Erythema dry scaly skin. Findings suggestive of cellulitis. Chronic venous stasis changes noted as well. Pitting edema. Onychomycosis. HEAD: Atraumatic. Normocephalic. EYES: Pupils equal and round. No scleral icterus. No injection or drainage. Hazy cornea patient has history of cataract ENT: No nasal bleeding or discharge. Mucous membranes pink and moist. NECK: Trachea midline. No JVD. CARDIOVASCULAR: Regular rate and rhythm. No murmur appreciated. RESPIRATORY: No accessory muscle use. Clear to auscultation. Breath sounds equal bilaterally. GASTROINTESTINAL: Abdomen soft, non-tender, nondistended. Hepatic and splenic margins not palpable. MUSCULOSKELETAL: No obvious deformities. No clubbing. No cyanosis. 3+ pitting edema on bilateral lower extremities NEUROLOGICAL: Awake and alert. No obvious cranial nerve deficits. Motor grossly within normal limits. Normal speech. PSYCHIATRIC: Appropriate mood and affect; insight and judgment normal. Course Reevaluation(s) Reevaluation #1: Resting comfortably no distress antibiotics started. Not appearing septic. No WBC elevation of lactic acidosis. UA was equivocal findings for urinary tract infection patient received antibiotics broad- spectrum coverage for his cellulitis that should be covering her urinary tract infection. Culture sent. Time: 06:25 Initial Documented Vital Signs Temperature 97.9 F 12/18/17 04:33 Pulse Rate 70 12/18/17 04:33 Respiratory Rate 16 12/18/17 04:33 Blood Pressure 156/79 H 12/18/17 04:33 Pulse Oximetry 99 12/18/17 04:33 Last Documented Vital Signs Temperature 97.9 F 12/18/17 04:33 Pulse Rate 70 12/18/17 04:33 Respiratory Rate 16 12/18/17 04:33 Blood Pressure 156/79 H 12/18/17 04:33 Pulse Oximetry 98 12/18/17 04:44 Medical Decision Making MDM Narrative Medical decision making narrative: Patient with cellulitis of bilateral lower extremities and possible urinary tract infection stable vitals hemodynamically stable alert and oriented. She has stated that she had an appointment to start hospice on Wednesday however she does not know why. She stated that her doctor suggested that. Will be communicated with the admitting team for hospice consultation. Lab Data Lab results reviewed: Yes I reviewed the patient's lab results. Result diagrams: 12/18/17 04:40 12/18/17 04:40 Lab Results 12/18/17 12/18/17 12/18/17 Range/Units 04:40 04:40 04:40 WBC 6.0 (4.0-11.0) th/mm3 RBC 5.24 (4.00-5.30) mil/mm3 Hgb 12.5 (11.6-15.3) gm/dL Hct 39.7 (35.0-46.0) % MCV 75.8 L (80.0-100.0) fL MCH 23.9 L (27.0-34.0) pg MCHC 31.5 L (32.0-36.0) % RDW 22.4 H (11.6-17.2) % Plt Count 245 (150-450) th/mm3 MPV 7.5 (7.0-11.0) fL Neut % (Auto) 52.3 (16.0-70.0) % Lymph % (Auto) 36.3 (9.0-44.0) % [place] % (Auto) 9.6 H (0.0-8.0) % Eos % (Auto) 1.3 (0.0-4.0) % Baso % (Auto) 0.5 (0.0-2.0) % Neut # (Auto) 3.1 (1.8-7.7) th/mm3 Lymph # (Auto) 2.2 (1.0-4.8) th/mm3 [place] # (Auto) 0.6 (0.0-0.9) th/mm3 Eos # (Auto) 0.1 (0.0-0.4) th/mm3 Baso # (Auto) 0.0 (0.0-0.2) th/mm3 WBC Differential . Differential Comment Auto diff final PT 11.4 (9.8-11.6) sec INR 1.1 Ratio APTT 26.1 (24.3-30.1) sec Sodium 144 (136-145) meq/L Potassium 3.8 (3.5-5.1) meq/L Chloride 108 H (98-107) meq/L Carbon Dioxide 30.5 (21.0-32.0) meq/L Anion Gap 6 (5-15) meq/L BUN 11 (7-18) mg/dL Creatinine 0.83 (0.50-1.00) mg/dL Estimated GFR 66 L (>89) mL/min Random Glucose 98 (74-106) mg/dL Lactic Acid (0.4-2.0) mmol/L Calcium 9.5 (8.5-10.1) mg/dL Total Bilirubin 0.8 (0.2-1.0) mg/dL AST 36 (15-37) U/L ALT 24 (10-53) U/L Alkaline Phosphatase 92 (45-117) U/L Troponin I 0.02 (0.02-0.05) ng/mL B-Natriuretic Peptide (0-100) pg/mL Total Protein 7.4 (6.4-8.2) g/dL Albumin 3.5 (3.4-5.0) g/dL Urine Color (Yellw/Straw) Urine Clarity (Clear) Urine pH (5.0-8.5) Ur Specific [place] (1.002-1.035) Urine Protein (Neg-Trace) mg/dL Urine Glucose (UA) (Negative) mg/dL Urine Ketones (Negative) mg/dL Urine Occult Blood (Negative) Urine Nitrate (Negative) Urine Bilirubin (Negative) Urine Urobilinogen (Less than 2) mg/dL Ur Leukocyte Esterase (Negative) Urine RBC (0-3) /hpf Urine WBC (0-5) /hpf Urine WBC Clumps (None) Ur Squamous Epith Cells (0-5) /hpf Urine Bacteria (None) /hpf Micro UA Comment Urine Culture Comments 12/18/17 12/18/17 12/18/17 Range/Units 04:40 04:45 05:08 WBC (4.0-11.0) th/mm3 RBC (4.00-5.30) mil/mm3 Hgb (11.6-15.3) gm/dL Hct (35.0-46.0) % MCV (80.0-100.0) fL MCH (27.0-34.0) pg MCHC (32.0-36.0) % RDW (11.6-17.2) % Plt Count (150-450) th/mm3 MPV (7.0-11.0) fL Neut % (Auto) (16.0-70.0) % Lymph % (Auto) (9.0-44.0) % [place] % (Auto) (0.0-8.0) % Eos % (Auto) (0.0-4.0) % Baso % (Auto) (0.0-2.0) % Neut # (Auto) (1.8-7.7) th/mm3 Lymph # (Auto) (1.0-4.8) th/mm3 [place] # (Auto) (0.0-0.9) th/mm3 Eos # (Auto) (0.0-0.4) th/mm3 Baso # (Auto) (0.0-0.2) th/mm3 WBC Differential Differential Comment PT (9.8-11.6) sec INR Ratio APTT (24.3-30.1) sec Sodium (136-145) meq/L Potassium (3.5-5.1) meq/L Chloride (98-107) meq/L Carbon Dioxide (21.0-32.0) meq/L Anion Gap (5-15) meq/L BUN (7-18) mg/dL Creatinine (0.50-1.00) mg/dL Estimated GFR (>89) mL/min Random Glucose (74-106) mg/dL Lactic Acid 1.1 (0.4-2.0) mmol/L Calcium (8.5-10.1) mg/dL Total Bilirubin (0.2-1.0) mg/dL AST (15-37) U/L ALT (10-53) U/L Alkaline Phosphatase (45-117) U/L Troponin I (0.02-0.05) ng/mL B-Natriuretic Peptide 179 H (0-100) pg/mL Total Protein (6.4-8.2) g/dL Albumin (3.4-5.0) g/dL Urine Color Yellow (Yellw/Straw) Urine Clarity Cloudy H (Clear) Urine pH 7.0 (5.0-8.5) Ur Specific [place] 1.005 (1.002-1.035) Urine Protein Negative (Neg-Trace) mg/dL Urine Glucose (UA) Negative (Negative) mg/dL Urine Ketones Negative (Negative) mg/dL Urine Occult Blood Small H (Negative) Urine Nitrate Negative (Negative) Urine Bilirubin Negative (Negative) Urine Urobilinogen Less than 2 (Less than 2) mg/dL Ur Leukocyte Esterase Large H (Negative) Urine RBC 4 H (0-3) /hpf Urine WBC (0-5) /hpf Urine WBC Clumps Many H (None) Ur Squamous Epith Cells <1 (0-5) /hpf Urine Bacteria Few H (None) /hpf Micro UA Comment Cath-culture ind Urine Culture Comments Cath-cult indicated Imaging Data Radiologist's impression: Chest X-Ray 12/18/17 04:38 CONCLUSION: Chronic cardiac silhouette enlargement. Lungs are clear. ECG Data Attestation: I personally reviewed and interpreted this ECG as follows: Interpretation: EKG obtained at 5:13 AM revealed normal sinus rhythm with a rate of 68 bpm IN interval 181 ms QTc 431 ms. No signs of acute ischemia nonspecific ST-T wave abnormalities intraventricular conduction delay noted. Discharge Plan Discharge Disposition Patient Disposition: 30 Still Patient Discharge Condition Condition: Stable Discharge Details Diagnosis: Cellulitis, UTI (urinary tract infection) with pyuria Physicians Team ED Provider: Noe Barnett Primary Care Provider: UNKNOWN, Rxs /Orders / Referrals /Forms Prescriptions: No Action Unable to Obtain Home Meds RF: 0 Discharge Interventions Interventions: Vital Signs Last Done: 12/18/17 04:33 Status ED Status: With Doctor
[2017-12-18 05:22] LABS: Alanine Aminotransferase 24 U/L (10-53); Albumin 3.5 g/dL (3.4-5.0); Anion Gap 6 meq/L (5-15); Aspartate Aminotransferase 36 U/L (15-37); Blood Urea Nitrogen 11 mg/dL (7-18); Calcium 9.5 mg/dL (8.5-10.1); Carbon Dioxide 30.5 meq/L (21.0-32.0); Chloride 108 meq/L (98-107); Glomerular Filtration Rate 66 mL/min (>89); Glucose,Random 98 mg/dL (74-106); Potassium 3.8 meq/L (3.5-5.1); Sodium 144 meq/L (136-145)
[2017-12-18 05:24] LABS: Alkaline Phosphatase 92 U/L (45-117); Total Protein 7.4 g/dL (6.4-8.2)
--- NOTE | 2017-12-18 05:24 | XR ---
EXAM DATE: 12/18/2017 5:13 AM EDT AGE/SEX: 82 years / Female INDICATIONS: Fever. CLINICAL DATA: This is the patient's initial encounter. Patient reports that signs and symptoms have been present for 1 day and indicates a pain score of 0/10. MEDICAL/SURGICAL HISTORY: . Chronic obstructive pulmonary disease. Deep venous thrombosis. Hype rcholesterolemia. Peripheral artery disease. Coronary artery disease. Hypertension. GERD. Diabetes.My ocardial infarction. Anticoagulant therapy. Emphysema. Sleep apnea. Arthritis. MSSA . CABG Coronary artery stent. Abdominal aortic aneurysm repair. Bilateral cataract removal. Left fem-pop bypass. COMPARISON: [facility] [place], CHEST PA & LAT, 07/18/2017. . FINDINGS: Single AP view of the chest. Median sternotomy wires are present. Mild cardiac silhouette enlargement . Lungs are clear. No evidence of pleural effusion or pneumothorax. CONCLUSION: Chronic cardiac silhouette enlargement. Lungs are clear. Electronically signed by: Eliu Pierre MD 12/18/2017 5:22 AM EDT
[2017-12-18 05:25] LABS: Activated Partial Thrombo Time 26.1 sec (24.3-30.1); INR 1.1 Ratio; Prothrombin Time 11.4 sec (9.8-11.6)
[2017-12-18 05:31] LABS: Troponin I 0.02 ng/mL (0.02-0.05)
[2017-12-18 05:32] LABS: Bacteria,Urine Few /hpf; Bilirubin,Urine Negative (Negative); Clarity,Urine Cloudy (Clear); Color,Urine Yellow (Yellw/Straw); Glucose,Urine (UA) Negative (Negative); Leukocyte Esterase,Urine Large (Negative); Nitrite,Urine Negative (Negative); Specific Gravity,Urine 1.005 (1.002-1.035); Squamous Epithelial Cell,Urine <1 /hpf (0-5)
[2017-12-18] MEDS ORDERED: Enoxaparin Inj 30 MG/0.3 ML Syringe SQ SCH (07:00)
--- NOTE | 2017-12-18 08:34 | P.HPIM ---
History of Present Illness Primary Care Physician: UNKNOWN Chief Complaint: LE swelling and pain History of Present Illness: This is a 81 y/o female patient DM on metformin, CAD s/p CABG 2001, COPD, HTN, hyperlipidemia, GERD and PAD s/p femoropopliteal bypass performed by Dr. Aviles 04/2017 complicated by infection requiring I&D. Pt presented to the ED at [facility] [place] on 12/17/17 with complaints of increasingly worsening bilateral leg pain. Pt was recently treated for cellulitis on both LE in October 2017 by her PCP with Keflex x 7 days. As per ED documentation, the pt is reportedly to have a consultation for hospice on Wednesday to get "help in the home" according to the patient. She lives alone. Pt reports that the pain and swelling in her legs has been worse over the last 4 months but significantly worsened over the last few days and has been unable to ambulate. Patient denies fevers, chills, SOB, chest pain, abd pain, N/V. Her labs at admission noted her UA was abnormal, urine culture is pending. Blood cultures were drawn in the ED. Pt was started on Zosyn in the ED and this was continued at admission. Past Medical History Chronic DVT in right femoral vein, left common femoral vein, and left femoral vein and left popliteal vein (Last outpt US on 11/29/17) CAD s/p CABG 2001 COPD/chronic bronchitis HTN Hyperlipidemia GERD PAD s/p femoropopliteal bypass performed by Dr. Aviles 04/2017 complicated by infection requiring I&D. This was complicated by infection requiring hospitalization 06/16/17 - 06/25/17. Culture at that time grew MSSA and Pseudomonas. Patient was DC to rehab on IV Zosyn. Patient then readmitted to [facility] 07/09/17 underwent a incision, debridement and drainage of left thigh wound. Past Surgical History CABG 2001 Femoropopliteal bypass performed by Dr. Aviles 04/2017 complicated by infection requiring I&D Excision of basal cell carcinoma on back Reported Medications Xarelto 20mg PO DAILY Metformin 500 Mg PO DAILY Potassium Chloride ER 10 Meq PO DAILY Furosemide 20 Mg PO DAILY Lipitor 40 Mg PO HS Omeprazole 20 Mg PO DAILY Metoprolol Tartrate 50 Mg PO DAILY Isosorbide Mononitrate ER 120 Mg PO DAILY Family History Positive for CAD Social History Lives alone Quit smoking 2001 prior to that smoked 1 to 1.5 PPD for 40- 45 years. Pts son lives locally - Diagnosis (1) Cellulitis (2) UTI (urinary tract infection) with pyuria (3) HTN (hypertension) (4) Hyperlipidemia (5) Chronic deep vein thrombosis (DVT) (6) PAD (peripheral artery disease) Review of Systems All other systems reviewed negative except as stated in HPI Constitutional: Denies chills, Denies fever(s) Ears, Nose, Mouth, and Throat: Denies dizziness Cardiovascular: Reports leg pain with activity, Reports leg swelling, Denies chest pain, Denies shortness of breath Respiratory: Denies cough, Denies shortness of breath Gastrointestinal: Denies abdominal pain, Denies constipation, Denies loose stools, Denies nausea, Denies vomiting Genitourinary: Reports urinary urgency Musculoskeletal: Denies back pain, Denies joint pain Skin/Breast: Reports change in skin color, Reports redness, Reports skin pain PMFSH - History History Provided By: Patient - Medical History Medical History: Medical History (Last Reviewed 12/18/17 @ 15:05 by Saloni Brian, PT) COPD (chronic obstructive pulmonary disease) Diabetes GERD (gastroesophageal reflux disease) Heart attack Hypertension - Surgical History Surgical History: Surgical History (Last Reviewed 12/18/17 @ 15:05 by Saloni Brian, PT) History of orthopedic surgery - Tobacco History Smoking Status: Former smoker - Alcohol History How Often Do You Have a Drink Containing Alcohol: Monthly or less - Substance Use History Substance History: No History of Abuse - Travel History Recent Travel in the [place] Within the Last 8 Weeks: No Recent Travel Out of the Country Within the Last 8 Weeks: No - Immunization History Tetanus Immunization: Unsure Hx Influenza Vaccine This Season: No Medications and Allergies Allergies Allergy/AdvReac Type Severity Reaction Status Date / Time rosuvastatin [From Crestor] Allergy Cramping Verified 12/18/17 04:39 of the Muscles Home Medications Medication Instructions Recorded Confirmed Type albuterol sulfate 2.5 mg INHALATION Q4H PRN 12/18/17 12/18/17 History atorvastatin 40 mg PO HS 12/18/17 12/18/17 History diphenoxylate-atropine 1 tab PO Q6-8H PRN 12/18/17 12/18/17 History furosemide 20 mg PO BID 12/18/17 12/18/17 History hydrocodone-acetaminophen [[place]] 1 tab PO TID PRN 12/18/17 12/18/17 History ipratropium bromide 0.5 mg INHALATION Q4H PRN 12/18/17 12/18/17 History isosorbide mononitrate 120 mg PO DAILY 12/18/17 12/18/17 History metformin 500 mg PO DAILY 12/18/17 12/18/17 History metoprolol tartrate 50 mg PO BID 12/18/17 12/18/17 History nitroglycerin [Nitrostat] 0.4 mg SUBLINGUAL Q5-15M PRN 12/18/17 12/18/17 History omeprazole 20 mg PO DAILY 12/18/17 12/18/17 History potassium chloride [K-Tab] 10 meq PO DAILY 12/18/17 12/18/17 History rivaroxaban [Xarelto] 20 mg PO DAILY 12/18/17 12/18/17 History Active Medications: Active Medications Acetaminophen (Tylenol) 650 mg PO Q4H PRN PRN Reason: Temp > 100.4 Al Hydroxide/Mg Hydroxide (Milk [employer]) 30 ml PO Q12H PRN PRN Reason: Mild Constipation Enoxaparin Sodium (Lovenox Inj) 30 mg SQ Q24H KO Piperacillin/Tazobactam/Dextrose (Zosyn 3.375 Gm Premix) 50 mls @ 100 mls/hr IV.SIG Q6H KO Ondansetron HCl (Zofran Inj) 4 mg IV.PUSH Q6H PRN PRN Reason: NAUSEA OR VOMITING Senna/Docusate Sodium (Any-Colace) 1 tab PO BID KO Exam Vital signs: Vital Signs 12/18/17 04:33 12/18/17 04:44 Temperature 97.9 F Pulse Rate 70 Respiratory Rate 16 Blood Pressure 156/79 H Pulse Oximetry 99 98 Intake & Output 12/17/17 12/18/17 12/18/17 18:59 06:59 18:59 Intake Total 100 / 100 Balance 100 / 100 Weight 89.5 kg Intake: IV 100 / 100 Zosyn 4.5 GM Premix 4.5 gm In 100 / 100 100 ml @ 200 mls/hr IV.SIG STAT STA Rx#:[id number] Narrative: GENERAL: NAD, Awake and alert SKIN: Bilateral LE erythema, swelling and pain with light palpation. HEENT: Atraumatic. Normocephalic. Pupils equal and round. No scleral icterus. No injection or drainage. No nasal bleeding or discharge. Mucous membranes pink and moist. NECK: Trachea midline. No JVD. CARDIO: Regular rate and rhythm. RESP: No accessory muscle use. Clear to auscultation. Breath sounds equal bilaterally. ABD: Abdomen soft, non-tender, nondistended. Hepatic and splenic margins not palpable. EXT: Bilateral LE edema NEURO: Awake and alert. No obvious cranial nerve deficits. Motor grossly within normal limits. Five out of 5 muscle strength in the arms and legs. Normal speech. PSYCHIATRIC: Appropriate mood and affect; insight and judgment normal. Results - Labs CBC & Chem 7: 12/19/17 06:06 12/19/17 06:06 Labs: Short CBC 12/18/17 Range/Units 04:40 WBC 6.0 (4.0-11.0) th/mm3 Hgb 12.5 (11.6-15.3) gm/dL Hct 39.7 (35.0-46.0) % Plt Count 245 (150-450) th/mm3 BMP 12/18/17 04:40 Sodium 144 Potassium 3.8 Chloride 108 H Carbon Dioxide 30.5 BUN 11 Creatinine 0.83 Calcium 9.5 Cardiac Enzymes 12/18/17 Range/Units 04:40 Troponin I 0.02 (0.02-0.05) ng/mL Liver Function 12/18/17 Range/Units 04:40 Total Bilirubin 0.8 (0.2-1.0) mg/dL AST 36 (15-37) U/L ALT 24 (10-53) U/L Alkaline Phosphatase 92 (45-117) U/L Albumin 3.5 (3.4-5.0) g/dL Urine 12/18/17 Range/Units 05:08 Urine Color Yellow (Yellw/Straw) Urine Clarity Cloudy H (Clear) Urine pH 7.0 (5.0-8.5) Ur Specific [place] 1.005 (1.002-1.035) Urine Protein Negative (Neg-Trace) mg/dL Urine Glucose (UA) Negative (Negative) mg/dL - Imaging Impressions Chest X-Ray 12/18/17 04:38 CONCLUSION: Chronic cardiac silhouette enlargement. Lungs are clear. Caprini VTE Risk Assessment Caprini VTE Risk Assessment: Moderate/High Risk (score >= 2) Caprini Risk Assessment Model: Point Value = 1 Point Value = 2 Point Value = 3 Point Value = 5 Age 41-60 Minor surgery BMI > 25 kg/m2 Swollen legs Varicose veins or History of unexplained or recurrent spontaneous Oral contraceptives or hormone replacement Sepsis (< 1 month) Serious lung disease, including pneumonia (< 1 month) Abnormal pulmonary function Acute myocardial infarction Congestive heart failure (< 1 month) History of inflammatory bowel disease Medical patient at bed rest Age 61-74 Arthroscopic surgery Major open surgery (> 45 min) Laparoscopic surgery (> 45 min) Malignancy Confined to bed (> 72 hours) Immobilizing plaster cast Central venous access Age >= 75 History of VTE Family history of VTE Factor V Leiden Prothrombin [id number] Lupus anticoagulant Anticardiolipin antibodies Elevated serum homocysteine Heparin-induced thrombocytopenia Other congenital or acquired thrombophilia Stroke (< 1 month) Elective arthroplasty Hip, pelvis, or leg fracture Acute spinal cord injury (< 1 month) Prophylaxis Regimen: Total Risk Factor Score Risk Level Prophylaxis Regimen 0-1 Low Early ambulation 2 Moderate Order ONE of the following: *Sequential Compression Device (SCD) *Heparin 5000 units SQ BID 3-4 Higher Order ONE of the following medications: *Heparin 5000 units SQ TID *Enoxaparin/Lovenox 40 mg SQ daily (WT < 150 kg, CrCl > 30 mL/min) *Enoxaparin/Lovenox 30 mg SQ daily (WT < 150 kg, CrCl > 10-29 mL/min) *Enoxaparin/Lovenox 30 mg SQ BID (WT < 150 kg, CrCl > 30 mL/min) AND/OR *Sequential Compression Device (SCD) 5 or more Highest Order ONE of the following medications: *Heparin 5000 units SQ TID (Preferred with Epidurals) *Enoxaparin/Lovenox 40 mg SQ daily (WT < 150 kg, CrCl > 30 mL/min) *Enoxaparin/Lovenox 30 mg SQ daily (WT < 150 kg, CrCl > 10-29 mL/min) *Enoxaparin/Lovenox 30 mg SQ BID (WT < 150 kg, CrCl > 30 mL/min) AND *Sequential Compression Device (SCD) Assessment and Plan - Assessment (1) Cellulitis Code(s): L03.90 - Cellulitis, unspecified Status: Acute Plan: Bilateral LE edema and possible cellulitis - Pt is an 81 y/o female with DM on metformin, CAD s/p CABG 2001, COPD, HTN, hyperlipidemia, GERD and PAD s/p femoropopliteal bypass performed by Dr. Aviles 04/2017 complicated by infection requiring I&D. - Pt presented to the ED at [facility] [place] on 12/17/17 with complaints of increasingly worsening bilateral leg pain and swelling. - Pt was recently treated for cellulitis on both LE in October 2017 by her PCP with Keflex x 7 days. Pt reports that the pain and swelling in her legs has been worse over the last 4 months but significantly worsened over the last few days and has been unable to ambulate. - Blood cultures were drawn in the ED. - Pt was started on Zosyn in the ED and this was continued at admission. - Pt was resumed on Lasix and KCL at home doses for now - Monitor electrolytes - Pain control PRN - Supportive care Urinary frequency, possible UTI - Her labs at admission noted her UA was abnormal - Urine culture is pending. - Pt is on Zosyn currently Chronic DVT in right femoral vein, left common femoral vein, and left femoral vein and left popliteal vein (Last outpt US on 11/29/17) - Cont. Xarelto 20mg po daily COPD/chronic bronchitis - Duonebs PRN HTN - Cont. home meds - Monitor Hyperlipidemia - Cont. home meds GERD - PPI PAD s/p femoropopliteal bypass performed by Dr. Aviles 04/2017 complicated by infection requiring I&D. - This was complicated by infection requiring hospitalization 06/16/17 - . Culture at that time grew MSSA and Pseudomonas. - Patient was DC to rehab on IV Zosyn. Patient then readmitted to [facility] 07/09/17 underwent a incision, debridement and drainage of left thigh wound. (2) UTI (urinary tract infection) with pyuria Code(s): N39.0 - Urinary tract infection, site not specified Status: Acute (3) HTN (hypertension) Code(s): I10 - Essential (primary) hypertension Status: Acute (4) Hyperlipidemia Code(s): E78.5 - Hyperlipidemia, unspecified Status: Acute (5) Chronic deep vein thrombosis (DVT) Code(s): I82.509 - Chronic embolism and thrombosis of unspecified deep veins of unspecified lower extremity Status: Acute (6) PAD (peripheral artery disease) Code(s): I73.9 - Peripheral vascular disease, unspecified Status: Acute - Plan Patient examined. Assessment and plan formulated with Idalia Presley PA-C. I agree with the above. (1) Cellulitis Qualifiers: Site of cellulitis: extremity Site of cellulitis of extremity: lower extremity Laterality: unspecified laterality Qualified Code(s): L03.119 - Cellulitis of unspecified part of limb
[2017-12-18] MEDS: Senna/Docusate Sodium 8.6/50 MG Tablet PO SCH ×2 (09:09→22:07)
[2017-12-18] MEDS ORDERED: Diphenoxylate/Atropine 2.5/0.025 MG Tablet PO PRN (11:48)
[2017-12-18] MEDS: Piperacil/Tazo 3.375 GM Premix 50 ML IV.SIG SCH ×3 (11:55→22:23)
--- NOTE | 2017-12-18 14:35 | ECG ---
Date Performed: 12/18/2017 Time Performed: 05:13:50 PTAGE: 82 years EKG: Sinus rhythm Right bundle branch block. When compared to previous tracing, the premature atrial Contractions are no longer present. ABNORMAL ECG PREVIOUS TRACING : 07/17/2017 19.12 DOCTOR: Gilson Ryan Interpretating Date/Time 12/18/2017 14:33:41
[2017-12-18] MEDS: Nystatin 100,000 UNITS/GM Powder 15 GM Bottle TOPICAL SCH ×3 (15:45→22:07)
[2017-12-18] MEDS: Furosemide 20 MG Tablet PO SCH (22:07)
[2017-12-18] MEDS: Metoprolol Tartrate 50 MG Tablet PO SCH (22:07)
[2017-12-19] MEDS: Piperacil/Tazo 3.375 GM Premix 50 ML IV.SIG SCH (06:16)
[2017-12-19 07:40] LABS: Baso % (Auto) 0.5 % (0.0-2.0); Eos # (Auto) 0.1 th/mm3 (0.0-0.4); Eos % (Auto) 1.3 % (0.0-4.0); Hematocrit 40.1 % (35.0-46.0); Hemoglobin 12.1 gm/dL (11.6-15.3); Lymph # (Auto) 1.5 th/mm3 (1.0-4.8); Lymph % (Auto) 20.1 % (9.0-44.0); Mean Corpuscular Hemoglobin 23.6 pg (27.0-34.0); Mean Corpuscular Volume 77.9 fL (80.0-100.0); Mean Platelet Volume 7.7 fL (7.0-11.0); Mono # (Auto) 0.6 th/mm3 (0.0-0.9); Mono % (Auto) 8.6 % (0.0-8.0); Neut # (Auto) 5.2 th/mm3 (1.8-7.7); Neut % (Auto) 69.5 % (16.0-70.0); Platelet Count 206 th/mm3 (150-450); Red Blood Count 5.14 mil/mm3 (4.00-5.30); Red Cell Distribution Width 22.6 % (11.6-17.2); White Blood Count 7.5 th/mm3 (4.0-11.0)
[2017-12-19 07:41] LABS: Mean Corpuscular HGB Conc 30.2 % (32.0-36.0)
[2017-12-19 07:45] LABS: Carbon Dioxide 27.2 meq/L (21.0-32.0); Potassium 3.8 meq/L (3.5-5.1)
[2017-12-19] MEDS: Furosemide 20 MG Tablet PO SCH ×2 (08:30→21:50)
[2017-12-19] MEDS: Isosorbide Mononitrate 60 MG ER 24HR Tablet (Imdur) PO SCH (08:30)
[2017-12-19] MEDS: Metoprolol Tartrate 50 MG Tablet PO SCH ×2 (08:30→21:50)
[2017-12-19] MEDS: Pantoprazole Sodium 20 MG DR Tablet PO SCH (08:30)
[2017-12-19] MEDS: Nystatin 100,000 UNITS/GM Powder 15 GM Bottle TOPICAL SCH ×4 (08:30→21:55)
[2017-12-19] MEDS: Senna/Docusate Sodium 8.6/50 MG Tablet PO SCH ×2 (08:30→21:50)
[2017-12-19] MEDS: Rivaroxaban 20 MG Tablet PO SCH (08:30)
--- NOTE | 2017-12-19 09:27 | P.PNIM ---
Subjective Interval history: Pt reports that she has slightly less pain in her LE this morning She is urinating frequently per the pt Afebrile Physical Exam Vital signs: Vital Signs 12/18/17 12:00 12/18/17 16:00 12/18/17 18:00 Temperature 98.2 F 97.8 F Pulse Rate 75 76 70 Respiratory Rate 18 18 16 Blood Pressure 150/68 H 142/68 H 123/60 Pulse Oximetry 94 L 97 94 L 12/18/17 20:00 12/18/17 23:41 12/19/17 07:54 Temperature 98.2 F 98.2 F 98.5 F Pulse Rate 77 67 59 L Respiratory Rate 20 16 18 Blood Pressure 142/66 H 133/60 150/67 H Pulse Oximetry 94 L 94 L Intake & Output 12/18/17 12/19/17 12/19/17 18:59 06:59 18:59 Intake Total 200 / 200 100 / 100 Balance 200 / 200 100 / 100 Weight 89.358 kg Intake: IV 200 / 200 100 / 100 Zosyn 3.375 GM Premix 50 ML @ 100 / 100 100 / 100 100 mls/hr IV.SIG Q6H [facility] Rx#: [id number] Zosyn 4.5 GM Premix 4.5 gm In 100 / 100 100 ml @ 200 mls/hr IV.SIG STAT STA Rx#:[id number] Other: # Voids 1 Date of Last Bowel Movement 12/18/17 # Bowel Movements 1 Weight On Admission 89.358 kg Narrative: GENERAL: NAD, AAOx3 CARDIO: Regular RESP: Breath sounds equal bilaterally. No accessory muscle use. ABD: +BS, soft, non-tender, nondistended. EXT: Bilateral LE edema and erythema. Venosus stasis skin changes and dry skin Results - Labs CBC & Chem 7: 12/20/17 06:15 12/20/17 06:15 Laboratory Results - last 24 hr 12/18/17 12/18/17 12/19/17 11:54 18:11 06:06 WBC 7.5 RBC 5.14 Hgb 12.1 Hct 40.1 MCV 77.9 L MCH 23.6 L MCHC 30.2 L RDW 22.6 H Plt Count 206 MPV 7.7 Prelim Diff (Auto) Slide review pending Neut % (Auto) 69.5 Lymph % (Auto) 20.1 [place] % (Auto) 8.6 H Eos % (Auto) 1.3 Baso % (Auto) 0.5 Neut # (Auto) 5.2 Lymph # (Auto) 1.5 [place] # (Auto) 0.6 Eos # (Auto) 0.1 Baso # (Auto) 0.0 Differential Comment . Hematology Comments Sodium Potassium Chloride Carbon Dioxide Anion Gap BUN Creatinine Estimated GFR POC Glucose 88 101 Random Glucose Calcium 12/19/17 06:06 WBC RBC Hgb Hct MCV MCH MCHC RDW Plt Count MPV Prelim Diff (Auto) Neut % (Auto) Lymph % (Auto) [place] % (Auto) Eos % (Auto) Baso % (Auto) Neut # (Auto) Lymph # (Auto) [place] # (Auto) Eos # (Auto) Baso # (Auto) Differential Comment Hematology Comments Sodium 144 Potassium 3.8 Chloride 110 H Carbon Dioxide 27.2 Anion Gap 7 BUN 11 Creatinine 0.89 Estimated GFR 61 L POC Glucose Random Glucose 101 Calcium 9.0 - Imaging Chest X-Ray 12/18/17 04:38 CONCLUSION: Chronic cardiac silhouette enlargement. Lungs are clear. Assessment and Plan - Assessment (1) Cellulitis Code(s): L03.90 - Cellulitis, unspecified Status: Acute Plan: Bilateral LE edema and possible cellulitis - Pt is an 81 y/o female with DM on metformin, CAD s/p CABG 2001, COPD, HTN, hyperlipidemia, GERD and PAD s/p femoropopliteal bypass performed by Dr. Aviles 04/2017 complicated by infection requiring I&D. - Pt presented to the ED at [facility] on 12/17/17 with complaints of increasingly worsening bilateral leg pain and swelling. - Pt was recently treated for cellulitis on both LE in October 2017 by her PCP with Keflex x 7 days. Pt reports that the pain and swelling in her legs has been worse over the last 4 months but significantly worsened over the last few days and has been unable to ambulate. - Blood cultures (12/18) are pending. - Cont. Zosyn - Cont. Lasix and KCL at home doses - Monitor electrolytes - Pain control PRN - PT evaluated and pt recommended to go to rehab but pt refusing at this time. - Family meeting is scheduled for 11AM this morning with the pts son and grand- daughter. - Supportive care Urinary frequency, possible UTI - Her labs at admission noted her UA was abnormal - Urine culture is pending. - Pt is on Zosyn currently Chronic DVT in right femoral vein, left common femoral vein, and left femoral vein and left popliteal vein (Last outpt US on 11/29/17) - Cont. Xarelto 20mg po daily COPD/chronic bronchitis - Duonebs PRN HTN - Cont. home meds - Monitor Hyperlipidemia - Cont. home meds GERD - PPI PAD s/p femoropopliteal bypass performed by Dr. Aviles 04/2017 complicated by infection requiring I&D. - This was complicated by infection requiring hospitalization 06/16/17 - . Culture at that time grew MSSA and Pseudomonas. - Patient was DC to rehab on IV Zosyn. Patient then readmitted to [facility] 07/09/17 underwent a incision, debridement and drainage of left thigh wound. (2) UTI (urinary tract infection) with pyuria Code(s): N39.0 - Urinary tract infection, site not specified Status: Acute (3) HTN (hypertension) Code(s): I10 - Essential (primary) hypertension Status: Chronic (4) Hyperlipidemia Code(s): E78.5 - Hyperlipidemia, unspecified Status: Chronic (5) Chronic deep vein thrombosis (DVT) Code(s): I82.509 - Chronic embolism and thrombosis of unspecified deep veins of unspecified lower extremity Status: Chronic (6) PAD (peripheral artery disease) Code(s): I73.9 - Peripheral vascular disease, unspecified Status: Chronic - Attending Attestation The exam, history, and the medical decision-making described in the above note were completed with the assistance of the mid-level provider. I reviewed and agree with the findings presented. I attest that I had a [id number] encounter with the patient on the same day, and personally performed and documented my assessment and findings in the medical record. Patient examined. Assessment and plan formulated with Idalia Presley PA-C. I agree with the above. (1) Cellulitis Qualifiers: Site of cellulitis: extremity Site of cellulitis of extremity: lower extremity Laterality: unspecified laterality Qualified Code(s): L03.119 - Cellulitis of unspecified part of limb
[2017-12-19] MEDS: Piperacil/Tazo 2.25 GM Premix 50 ML IV.SIG SCH ×3 (13:14→23:57)
[2017-12-20] MEDS: Acetaminophen 325 MG Tablet PO PRN ×2 (00:51→18:28)
[2017-12-20] MEDS: Piperacil/Tazo 2.25 GM Premix 50 ML IV.SIG SCH ×3 (06:22→18:36)
[2017-12-20 07:26] LABS: Baso % (Auto) 0.5 % (0.0-2.0); Eos # (Auto) 0.1 th/mm3 (0.0-0.4); Eos % (Auto) 2.3 % (0.0-4.0); Hematocrit 36.3 % (35.0-46.0); Hemoglobin 11.5 gm/dL (11.6-15.3); Lymph # (Auto) 1.6 th/mm3 (1.0-4.8); Lymph % (Auto) 29.3 % (9.0-44.0); Mean Corpuscular HGB Conc 31.6 % (32.0-36.0); Mean Corpuscular Hemoglobin 24.3 pg (27.0-34.0); Mean Corpuscular Volume 76.8 fL (80.0-100.0); Mean Platelet Volume 7.9 fL (7.0-11.0); Mono # (Auto) 0.6 th/mm3 (0.0-0.9); Mono % (Auto) 10.9 % (0.0-8.0); Neut # (Auto) 3.1 th/mm3 (1.8-7.7); Platelet Count 232 th/mm3 (150-450); Red Blood Count 4.73 mil/mm3 (4.00-5.30); Red Cell Distribution Width 22.5 % (11.6-17.2); White Blood Count 5.5 th/mm3 (4.0-11.0)
[2017-12-20 07:47] LABS: Calcium 9.3 mg/dL (8.5-10.1); Carbon Dioxide 27.7 meq/L (21.0-32.0); Potassium 4.1 meq/L (3.5-5.1)
[2017-12-20] MEDS: Senna/Docusate Sodium 8.6/50 MG Tablet PO SCH ×2 (08:14→22:04)
[2017-12-20] MEDS: Pantoprazole Sodium 20 MG DR Tablet PO SCH (08:14)
[2017-12-20] MEDS: Metoprolol Tartrate 50 MG Tablet PO SCH ×2 (08:14→22:03)
[2017-12-20] MEDS: Isosorbide Mononitrate 60 MG ER 24HR Tablet (Imdur) PO SCH (08:14)
[2017-12-20] MEDS: Furosemide 20 MG Tablet PO SCH ×2 (08:15→22:04)
[2017-12-20] MEDS: Rivaroxaban 20 MG Tablet PO SCH (08:15)
[2017-12-20] MEDS: Nystatin 100,000 UNITS/GM Powder 15 GM Bottle TOPICAL SCH ×4 (08:15→22:04)
--- NOTE | 2017-12-20 08:19 | P.PNIM ---
Subjective Interval history: Pt complains of some leg cramping overnight Pt still urinating frequently Denies any abd pain, N/D, diarrhea or constipation Afebrile Physical Exam Vital signs: Vital Signs 12/19/17 12:00 12/19/17 16:00 12/19/17 19:32 Temperature 97.6 F 97.6 F 98.7 F Pulse Rate 59 L 60 74 Respiratory Rate 16 16 16 Blood Pressure 124/60 154/70 H 155/57 H Pulse Oximetry 97 95 12/19/17 22:54 12/20/17 03:11 12/20/17 07:29 Temperature 97.9 F 98.7 F 97.8 F Pulse Rate 63 63 64 Respiratory Rate 17 16 16 Blood Pressure 157/74 H 144/68 H 161/86 H Pulse Oximetry 94 L 96 93 L Intake & Output 12/19/17 12/20/17 12/20/17 18:59 06:59 18:59 Intake Total 100 / 100 100 / 100 Balance 100 / 100 100 / 100 Intake: IV 100 / 100 100 / 100 Zosyn 2.25 GM Premix 50 ML @ 100 / 100 100 / 100 100 mls/hr IV.SIG Q6H [facility] Rx#: [id number] Other: Date of Last Bowel Movement 12/18/17 # Bowel Movements 1 Narrative: GENERAL: NAD, AAOx3 CARDIO: Regular RESP: Breath sounds equal bilaterally. No accessory muscle use. ABD: +BS, soft, non-tender, nondistended. EXT: Bilateral LE edema and erythema, improving. Venosus stasis skin changes and dry skin Results - Labs CBC & Chem 7: 12/20/17 06:15 12/20/17 06:15 Laboratory Results - last 24 hr 12/18/17 12/19/17 12/20/17 05:08 06:06 06:15 WBC 5.5 RBC 4.73 Hgb 11.5 L Hct 36.3 MCV 76.8 L MCH 24.3 L MCHC 31.6 L RDW 22.5 H Plt Count 232 MPV 7.9 Neut % (Auto) 57.0 Lymph % (Auto) 29.3 [place] % (Auto) 10.9 H Eos % (Auto) 2.3 Baso % (Auto) 0.5 Neut # (Auto) 3.1 Lymph # (Auto) 1.6 [place] # (Auto) 0.6 Eos # (Auto) 0.1 Baso # (Auto) 0.0 WBC Differential . . Diff Scan Auto diff confirmed Differential Comment Auto diff final Sodium Potassium Chloride Carbon Dioxide Anion Gap BUN Creatinine Estimated GFR Random Glucose Calcium Urine Color Yellow Urine Clarity Cloudy H Urine pH 7.0 Ur Specific [place] 1.005 Urine Protein Negative Urine Glucose (UA) Negative Urine Ketones Negative Urine Occult Blood Small H Urine Nitrate Negative Urine Bilirubin Negative Urine Urobilinogen Less than 2 Ur Leukocyte Esterase Large H Urine RBC 4 H Urine WBC Urine WBC Clumps Many H Ur Squamous Epith Cells <1 Urine Bacteria Few H Micro UA Comment Cath-culture ind Urine Culture Comments Cath-cult indicated 12/20/17 06:15 WBC RBC Hgb Hct MCV MCH MCHC RDW Plt Count MPV Neut % (Auto) Lymph % (Auto) [place] % (Auto) Eos % (Auto) Baso % (Auto) Neut # (Auto) Lymph # (Auto) [place] # (Auto) Eos # (Auto) Baso # (Auto) WBC Differential Diff Scan Differential Comment Sodium 145 Potassium 4.1 Chloride 109 H Carbon Dioxide 27.7 Anion Gap 8 BUN 9 Creatinine 0.98 Estimated GFR 54 L Random Glucose 113 H Calcium 9.3 Urine Color Urine Clarity Urine pH Ur Specific [place] Urine Protein Urine Glucose (UA) Urine Ketones Urine Occult Blood Urine Nitrate Urine Bilirubin Urine Urobilinogen Ur Leukocyte Esterase Urine RBC Urine WBC Urine WBC Clumps Ur Squamous Epith Cells Urine Bacteria Micro UA Comment Urine Culture Comments Microbiology 12/18/17 04:45 Blood - Peripheral Aerobic Blood Culture - Preliminary No growth in 1 day 12/18/17 04:45 Blood - Peripheral Anaerobic Blood Culture - Preliminary No growth in 1 day 12/18/17 04:40 Blood - Peripheral Aerobic Blood Culture - Preliminary No growth in 1 day 12/18/17 04:40 Blood - Peripheral Anaerobic Blood Culture - Preliminary No growth in 1 day 12/18/17 05:08 Catheterized Urine Urine Culture - Preliminary gram negative rods Assessment and Plan - Assessment (1) Cellulitis Code(s): L03.90 - Cellulitis, unspecified Status: Acute Plan: Bilateral LE edema and possible cellulitis - Pt is an 81 y/o female with DM on metformin, CAD s/p CABG 2001, COPD, HTN, hyperlipidemia, GERD and PAD s/p femoropopliteal bypass performed by Dr. Aviles 04/2017 complicated by infection requiring I&D. - Pt presented to the ED at [facility] on 12/17/17 with complaints of increasingly worsening bilateral leg pain and swelling. - Pt was recently treated for cellulitis on both LE in October 2017 by her PCP with Keflex x 7 days. Pt reports that the pain and swelling in her legs has been worse over the last 4 months but significantly worsened over the last few days and has been unable to ambulate. - Blood cultures were drawn in the ED. - Pt was started on Zosyn in the ED and this was continued at admission. - Pt was resumed on Lasix and KCL at home doses for now - Monitor electrolytes - Pain control PRN - Supportive care Urinary frequency, possible UTI - Her labs at admission noted her UA was abnormal - Urine culture with gram negative rods. Final culture is pending. - Pt is on Zosyn currently Chronic DVT in right femoral vein, left common femoral vein, and left femoral vein and left popliteal vein (Last outpt US on 11/29/17) - Cont. Xarelto 20mg po daily COPD/chronic bronchitis - Duonebs PRN HTN - Cont. home meds - Monitor Hyperlipidemia - Cont. home meds GERD - PPI PAD s/p femoropopliteal bypass performed by Dr. Aviles 04/2017 complicated by infection requiring I&D. - This was complicated by infection requiring hospitalization 06/16/17 - . Culture at that time grew MSSA and Pseudomonas. - Patient was DC to rehab on IV Zosyn. Patient then readmitted to [facility] 07/09/17 underwent a incision, debridement and drainage of left thigh wound. The exam, history, and the medical decision-making described in the above note were completed with the assistance of the mid-level provider. I reviewed and agree with the findings presented. I attest that I had a [id number] encounter with the patient on the same day, and personally performed and documented my assessment and findings in the medical record. (2) UTI (urinary tract infection) with pyuria Code(s): N39.0 - Urinary tract infection, site not specified Status: Acute (3) HTN (hypertension) Code(s): I10 - Essential (primary) hypertension Status: Chronic (4) Hyperlipidemia Code(s): E78.5 - Hyperlipidemia, unspecified Status: Chronic (5) Chronic deep vein thrombosis (DVT) Code(s): I82.509 - Chronic embolism and thrombosis of unspecified deep veins of unspecified lower extremity Status: Chronic (6) PAD (peripheral artery disease) Code(s): I73.9 - Peripheral vascular disease, unspecified Status: Chronic - Attending Attestation The exam, history, and the medical decision-making described in the above note were completed with the assistance of the mid-level provider. I reviewed and agree with the findings presented. I attest that I had a [id number] encounter with the patient on the same day, and personally performed and documented my assessment and findings in the medical record. Patient examined. Assessment and plan formulated with Idalia Presley PA-C. I agree with the above. (1) Cellulitis Qualifiers: Site of cellulitis: extremity Site of cellulitis of extremity: lower extremity Laterality: unspecified laterality Qualified Code(s): L03.119 - Cellulitis of unspecified part of limb
[2017-12-21] MEDS: Piperacil/Tazo 2.25 GM Premix 50 ML IV.SIG SCH ×3 (01:48→12:31)
--- NOTE | 2017-12-21 08:08 | P.PNIM ---
Subjective Interval history: Pts BP is elevated this morning with systolic in the 190s She denies any headache, dizziness, or weakness Pt is anxious for discharge to rehab today Physical Exam Vital signs: Vital Signs 12/20/17 11:59 12/20/17 16:00 12/20/17 19:45 Temperature 97.8 F 97.9 F 97.9 F Pulse Rate 60 62 65 Respiratory Rate 18 16 17 Blood Pressure 128/61 150/70 H 138/65 Pulse Oximetry 94 L 94 L 97 12/21/17 00:00 12/21/17 04:00 12/21/17 07:37 Temperature 97.9 F 97.8 F 98.1 F Pulse Rate 60 72 74 Respiratory Rate 17 16 18 Blood Pressure 146/67 H 186/84 H 192/87 H Pulse Oximetry 94 L 93 L 95 Intake & Output 12/20/17 12/21/17 12/21/17 18:59 06:59 18:59 Intake Total 50 / 50 100 / 100 50 / 50 Balance 50 / 50 100 / 100 50 / 50 Intake: IV 50 / 50 100 / 100 50 / 50 Zosyn 2.25 GM Premix 50 ML @ 50 / 50 100 / 100 50 / 50 100 mls/hr IV.SIG Q6H [facility] Rx#: [id number] Other: # Voids 3 Narrative: GENERAL: NAD, AAOx3 CARDIO: Regular RESP: Breath sounds equal bilaterally. No accessory muscle use. ABD: +BS, soft, non-tender, nondistended. EXT: Bilateral LE edema and erythema, improving. Venosus stasis skin changes and dry skin Results - Labs CBC & Chem 7: 12/20/17 06:15 12/20/17 06:15 Microbiology 12/18/17 05:08 Catheterized Urine Urine Culture - Preliminary Pseudomonas aeruginosa Morganella morganii 12/18/17 04:45 Blood - Peripheral Aerobic Blood Culture - Preliminary No growth in 2 days 12/18/17 04:45 Blood - Peripheral Anaerobic Blood Culture - Preliminary No growth in 2 days 12/18/17 04:40 Blood - Peripheral Aerobic Blood Culture - Preliminary No growth in 2 days 12/18/17 04:40 Blood - Peripheral Anaerobic Blood Culture - Preliminary No growth in 2 days Assessment and Plan - Assessment (1) Cellulitis Code(s): L03.90 - Cellulitis, unspecified Status: Acute Plan: Bilateral LE edema and possible cellulitis - Pt is an 81 y/o female with DM on metformin, CAD s/p CABG 2001, COPD, HTN, hyperlipidemia, GERD and PAD s/p femoropopliteal bypass performed by Dr. Aviles 04/2017 complicated by infection requiring I&D. - Pt presented to the ED at [facility] on 12/17/17 with complaints of increasingly worsening bilateral leg pain and swelling. - Pt was recently treated for cellulitis on both LE in October 2017 by her PCP with Keflex x 7 days. Pt reports that the pain and swelling in her legs has been worse over the last 4 months but significantly worsened over the last few days and has been unable to ambulate. - Blood cultures were drawn in the ED. - Pt was started on Zosyn in the ED and this was continued at admission. - Pt was resumed on Lasix and KCL at home doses with improvement in her LE edema. Pt walking better with much less pain. - Monitor electrolytes - Pain control PRN - Supportive care Urinary frequency, possible UTI - Her labs at admission noted her UA was abnormal - Urine culture growing pseudomonas aeruginosa and Morganella morganii, sensitivities are pending. - Will decide on final antibiotics once sensitivities result. - Pt is on Zosyn currently Chronic DVT in right femoral vein, left common femoral vein, and left femoral vein and left popliteal vein (Last outpt US on 11/29/17) - Cont. Xarelto 20mg po daily COPD/chronic bronchitis - Duonebs PRN HTN - BP elevated today, cont. home meds - Monitor Hyperlipidemia - Cont. home meds GERD - PPI PAD s/p femoropopliteal bypass performed by Dr. Aviles 04/2017 complicated by infection requiring I&D. - This was complicated by infection requiring hospitalization 06/16/17 - . Culture at that time grew MSSA and Pseudomonas. - Patient was DC to rehab on IV Zosyn. Patient then readmitted to [facility] 07/09/17 underwent a incision, debridement and drainage of left thigh wound. - Attending Attestation The exam, history, and the medical decision-making described in the above note were completed with the assistance of the mid-level provider. I reviewed and agree with the findings presented. I attest that I had a [id number] encounter with the patient on the same day, and personally performed and documented my assessment and findings in the medical record. Patient examined. Assessment and plan formulated with Idalia Presley PA-C. I agree with the above. (1) Cellulitis Qualifiers: Site of cellulitis: extremity Site of cellulitis of extremity: lower extremity Laterality: unspecified laterality Qualified Code(s): L03.119 - Cellulitis of unspecified part of limb
[2017-12-21] MEDS: Furosemide 20 MG Tablet PO SCH (08:14)
[2017-12-21] MEDS: Rivaroxaban 20 MG Tablet PO SCH (08:14)
[2017-12-21] MEDS: Senna/Docusate Sodium 8.6/50 MG Tablet PO SCH (08:14)
[2017-12-21] MEDS: Pantoprazole Sodium 20 MG DR Tablet PO SCH (08:14)
[2017-12-21] MEDS: Metoprolol Tartrate 50 MG Tablet PO SCH (08:14)
[2017-12-21] MEDS: Isosorbide Mononitrate 60 MG ER 24HR Tablet (Imdur) PO SCH (08:14)
[2017-12-21] MEDS: Nystatin 100,000 UNITS/GM Powder 15 GM Bottle TOPICAL SCH ×2 (08:16→12:31)
--- NOTE | 2017-12-21 12:17 | P.DS ---
<Idalia Presely - Last Filed: 12/21/17 12:12> Date of admission: 12/18/17 06:34 Primary care physician: UNKNOWN Attending physician on discharge: Gilson Srinivasan Anticipated date of discharge: 12/21/17 Brief History from admission: This is a 81 y/o female patient DM on metformin, CAD s/p CABG 2001, COPD, HTN, hyperlipidemia, GERD and PAD s/p femoropopliteal bypass performed by Dr. Aviles 04/2017 complicated by infection requiring I&D. Pt presented [place] [facility] with complaints of increasingly worsening bilateral leg pain. Pt was recently treated for cellulitis on both LE in October 2017 by her PCP with Keflex x 7 days. As per ED documentation, the pt is reportedly to have a consultation for hospice on Wednesday to get "help in the home" according to the patient. She lives alone. Pt reports that the pain and swelling in her legs has been worse over the last 4 months but significantly worsened over the last few days and has been unable to ambulate. Patient denies fevers, chills, SOB, chest pain, abd pain, N/V. Her labs at admission noted her UA was abnormal, urine culture is pending. Blood cultures were drawn in the ED. Pt was started on Zosyn in the ED and this was continued at admission. Past Medical History Chronic DVT in right femoral vein, left common femoral vein, and left femoral vein and left popliteal vein (Last outpt US on 11/29/17) CAD s/p CABG 2001 COPD/chronic bronchitis HTN Hyperlipidemia GERD PAD s/p femoropopliteal bypass performed by Dr. Aviles 04/2017 complicated by infection requiring I&D. This was complicated by infection requiring hospitalization 06/16/17 - 06/25/17. Culture at that time grew MSSA and Pseudomonas. Patient was DC to rehab on IV Zosyn. Patient then readmitted to [facility] 07/09/17 underwent a incision, debridement and drainage of left thigh wound. Past Surgical History CABG 2002 Femoropopliteal bypass performed by Dr. Aviles 04/2017 complicated by infection requiring I&D Excision of basal cell carcinoma on back Reported Medications Xarelto 20mg PO DAILY Metformin 500 Mg PO DAILY Potassium Chloride ER 10 Meq PO DAILY Furosemide 20 Mg PO DAILY Lipitor 40 Mg PO HS Omeprazole 20 Mg PO DAILY Metoprolol Tartrate 50 Mg PO DAILY Isosorbide Mononitrate ER 120 Mg PO DAILY Family History Positive for CAD Social History Lives alone Quit smoking 2001 prior to that smoked 1 to 1.5 PPD for 40- 45 years. Pts son lives locally DS: Diagnosis - Discharge Diagnosis (1) Cellulitis Status: Acute (2) UTI (urinary tract infection) with pyuria Status: Acute (3) HTN (hypertension) Status: Chronic (4) Hyperlipidemia Status: Chronic (5) Chronic deep vein thrombosis (DVT) Status: Chronic (6) PAD (peripheral artery disease) Status: Chronic DS: Medications - Discharge Medications Prescriptions: ciprofloxacin HCl [Cipro] 500 mg PO Q12H 4 Days #8 tab hydrocodone-acetaminophen [[place]] 1 tab PO TID PRN #9 tab PRN Reason: Pain DS: Summary Hospital Course: Bilateral LE edema and ?cellulitis - Pt is an 81 y/o female with DM on metformin, CAD s/p CABG 2001, COPD, HTN, hyperlipidemia, GERD and PAD s/p femoropopliteal bypass performed by Dr. Aviles 04/2017 complicated by infection requiring I&D. Pt presented to the ED at [facility] [place] 12/17/17 with complaints of increasingly worsening bilateral leg pain and swelling. Pt was recently treated for cellulitis on both LE in October 2017 by her PCP with Keflex x 7 days. Pt reports that the pain and swelling in her legs has been worse over the last 4 months but significantly worsened over the last few days and has been unable to ambulate. Blood cultures were drawn in the ED which had NGTD. Pt was started on Zosyn in the ED and this was continued at admission. Pt was resumed on Lasix and KCL at home doses with improvement in her LE edema. Pt walking better with much less pain. Pt still with some redness but appears to have more chronic venous stasis skin changes. Her swelling was much better prior to discharge. She will need to continue with compression stockings while at rehab Pt is to followup with her PCP, Dr. Hill, 1 week after discharge from SNF. Urinary frequency, possible UTI - Her labs at admission noted her UA was abnormal. Urine culture growing pseudomonas aeruginosa and Morganella morganii, sensitivities are revealed the bacteria are both sensitive to Cipro at <1 SUNNY. We will discharge the pt on Cipro 500mg po BID x 4 more days. Chronic DVT in right femoral vein, left common femoral vein, and left femoral vein and left popliteal vein (Last outpt US on 11/29/17) - Cont. Xarelto 20mg po daily COPD/chronic bronchitis - Duonebs PRN HTN - Cont. home meds Hyperlipidemia - Cont. home meds GERD - PPI PAD s/p femoropopliteal bypass performed by Dr. Aviles 04/2017 complicated by infection requiring I&D. - This was complicated by infection requiring hospitalization 06/16/17 - . Culture at that time grew MSSA and Pseudomonas. She was treated with IV Zosyn at that time. Patient then readmitted to [facility] 07/09/17 underwent a incision , debridement and drainage of left thigh wound. No new open wounds noted. - Time Spent with Patient Total time spent providing and/or coordinating discharge services: - Quality: VTE Deep Vein Thrombosis/Pulmonary Embolism Present on Admission: No Exam Vital signs: Vital Signs 12/20/17 16:00 12/20/17 19:45 12/21/17 00:00 Temperature 97.9 F 97.9 F 97.9 F Pulse Rate 62 65 60 Respiratory Rate 16 17 17 Blood Pressure 150/70 H 138/65 146/67 H Pulse Oximetry 94 L 97 94 L 12/21/17 04:00 12/21/17 07:37 Temperature 97.8 F 98.1 F Pulse Rate 72 74 Respiratory Rate 16 18 Blood Pressure 186/84 H 192/87 H Pulse Oximetry 93 L 95 Intake & Output 12/20/17 12/21/17 12/21/17 18:59 06:59 18:59 Intake Total 50 / 50 100 / 100 50 / 50 Balance 50 / 50 100 / 100 50 / 50 Intake: IV 50 / 50 100 / 100 50 / 50 Zosyn 2.25 GM Premix 50 ML @ 50 / 50 100 / 100 50 / 50 100 mls/hr IV.SIG Q6H KO Rx#: [id number] Other: # Voids 3 Narrative: GENERAL: NAD, AAOx3 CARDIO: Regular RESP: Breath sounds equal bilaterally. No accessory muscle use. ABD: +BS, soft, non-tender, nondistended. EXT: Bilateral LE edema and erythema, improving. Venosus stasis skin changes and dry skin Results Procedures completed during hospitalization: No procedures Labs on day of discharge: Preliminary micro results at discharge 12/18/17 04:45 Aerobic Blood Culture - Preliminary Blood - Peripheral No growth in 3 days Anaerobic Blood Culture - Preliminary No growth in 3 days 12/18/17 04:40 Aerobic Blood Culture - Preliminary Blood - Peripheral No growth in 3 days Anaerobic Blood Culture - Preliminary No growth in 3 days - Impressions ITS Impressions Chest X-Ray 12/18/17 04:38 CONCLUSION: Chronic cardiac silhouette enlargement. Lungs are clear. <Gilson Srinivasan - Last Filed: 12/21/17 13:10> Date of admission: 12/18/17 06:34 Primary care physician: UNKNOWN DS: Diagnosis - Discharge Diagnosis (1) Cellulitis Status: Acute DS: Summary - Time Spent with Patient Total time spent providing and/or coordinating discharge services: Exam Vital signs: Vital Signs 12/20/17 16:00 12/20/17 19:45 12/21/17 00:00 Temperature 97.9 F 97.9 F 97.9 F Pulse Rate 62 65 60 Respiratory Rate 16 17 17 Blood Pressure 150/70 H 138/65 146/67 H Pulse Oximetry 94 L 97 94 L 12/21/17 04:00 12/21/17 07:37 12/21/17 12:00 Temperature 97.8 F 98.1 F 97.9 F Pulse Rate 72 74 69 Respiratory Rate 16 18 16 Blood Pressure 186/84 H 192/87 H 146/71 H Pulse Oximetry 93 L 95 98 Intake & Output 12/20/17 12/21/17 12/21/17 18:59 06:59 18:59 Intake Total 50 / 50 100 / 100 100 / 100 Balance 50 / 50 100 / 100 100 / 100 Intake: IV 50 / 50 100 / 100 100 / 100 Zosyn 2.25 GM Premix 50 ML @ 50 / 50 100 / 100 100 / 100 100 mls/hr IV.SIG Q6H [facility], [facility] Rx#: [id number] Other: # Voids 3 Results Labs on day of discharge: Preliminary micro results at discharge 12/18/17 04:45 Aerobic Blood Culture - Preliminary Blood - Peripheral No growth in 3 days Anaerobic Blood Culture - Preliminary No growth in 3 days 12/18/17 04:40 Aerobic Blood Culture - Preliminary Blood - Peripheral No growth in 3 days Anaerobic Blood Culture - Preliminary No growth in 3 days - Impressions ITS Impressions Chest X-Ray 12/18/17 04:38 CONCLUSION: Chronic cardiac silhouette enlargement. Lungs are clear. Discharge Plan - Discharge Order Discharge Orders: Discharge Order (Routine); Ordered 12/21/17 Ordered By: Idalia Presley - Discharge Details Anticipated Discharge Date: 12/21/17 - Physicians Team Primary Care Provider: UNKNOWN, Attending Provider: Neri Baeza Other Providers: [facility] ,Agency
== END 2017-12-21 13:45 ==
LOC: NEPC 03:06 → NEPFCDU 03:06 → INTOOBSV 06:34 → NEDA 06:34 → NEPFCDU 08:52
PROVIDERS: ADMIT Hospitalist; ATTEND Hospitalist

== ENCOUNTER 2018-03-04 09:07 | Observation (INO) ==
[2018-03-04] MEDS ORDERED: Sod Chloride 0.9% Inj 1,000 ML IV.SIG ONE (09:18)
--- NOTE | 2018-03-04 09:59 | XR ---
EXAM DATE: 03/04/2018 9:16 AM EDT AGE/SEX: 82 years / Female INDICATIONS: Cough, short of breath, AMS, evaluate for pneumonia CLINICAL DATA: This is the patient's initial encounter. Patient reports that signs and symptoms have been present for 1 day and indicates a pain score of Nonresponsive. MEDICAL/SURGICAL HISTORY: . UTI, pneumonia Non-responsive. COMPARISON: [facility], CHEST 1V SINGLE AP, 12/18/2017. . FINDINGS: The heart is enlarged. Median sternotomy wires are noted status post cardiac surgery. Minimal central pulmonary vascular congestion is noted. Degenerative changes are noted involving the shoulders bilat erally. CONCLUSION: 1. Minimal central pulmonary vascular congestion. 2. Cardiomegaly. Electronically signed by: Mane Miranda MD 03/04/2018 9:58 AM EDT
[2018-03-04 10:05] LABS: Baso % (Auto) 0.4 % (0.0-2.0); Eos % (Auto) 0.5 % (0.0-4.0); Hemoglobin 7.7 gm/dL (11.6-15.3); Lymph # (Auto) 1.8 th/mm3 (1.0-4.8); Lymph % (Auto) 33.8 % (9.0-44.0); Mean Corpuscular HGB Conc 31.9 % (32.0-36.0); Mean Corpuscular Hemoglobin 26.2 pg (27.0-34.0); Mean Corpuscular Volume 82.2 fL (80.0-100.0); Mean Platelet Volume 8.1 fL (7.0-11.0); Mono # (Auto) 0.5 th/mm3 (0.0-0.9); Mono % (Auto) 9.4 % (0.0-8.0); Neut % (Auto) 55.9 % (16.0-70.0); Platelet Count 122 th/mm3 (150-450); Red Blood Count 2.92 mil/mm3 (4.00-5.30); Red Cell Distribution Width 15.3 % (11.6-17.2); White Blood Count 5.3 th/mm3 (4.0-11.0)
[2018-03-04 10:31] LABS: Bilirubin,Urine Negative (Negative); Clarity,Urine Clear (Clear); Color,Urine Yellow (Yellw/Straw); Glucose,Urine (UA) Negative (Negative); Hyaline Casts,Urine 4 /lpf (0-3); Leukocyte Esterase,Urine Negative (Negative); Nitrite,Urine Negative (Negative); Specific Gravity,Urine 1.017 (1.002-1.035)
[2018-03-04 10:40] LABS: Calcium 6.3 mg/dL (8.5-10.1); Carbon Dioxide 21.6 meq/L (21.0-32.0)
[2018-03-04] MEDS ORDERED: Calcium Gluconate Inj 1 GM in Dextrose 5% in Water Inj 100 ML IV.SIG ONE ×2 (10:53)
[2018-03-04] MEDS ORDERED: Dextrose 50% in Water 50 ML Vial IV.PUSH ONE (10:54)
[2018-03-04 10:59] LABS: Total Protein 4.9 g/dL (6.4-8.2)
--- NOTE | 2018-03-04 12:28 | CT ---
EXAM DATE: 03/04/2018 9:22 AM EDT AGE/SEX: 82 years / Female INDICATIONS: Altered mental status. CLINICAL DATA: This is the patient's initial encounter. Patient reports that signs and symptoms have been present for 1 day and indicates a pain score of 0/10. MEDICAL/SURGICAL HISTORY: Peripheral artery disease. Deep venous thrombosis. Chronic obstructive pulmonary disease. Diabetes, hypertension, gerd. None. RADIATION DOSE: 56.35 CTDI (mGy) COMPARISON: [facility] [place] BRAIN W/O CONTRAST, 01/15/2017. . TECHNIQUE: CT of the head without contrast. Using automated exposure control and adjustment of the mA and/or kV according to patient size, radiation dose was kept as low as reasonably achievable to ob tain optimal diagnostic quality images. DICOM format image data is available electronically for revi ew and comparison. FINDINGS: Cerebrum: The ventricles are prominent consistent with central cerebral atrophy versus hydrocephalus . Clinical correlation is recommended. Mild periventricular and subcortical white matter small vessel ischemic changes are noted bilaterally. No acute infarct, acute hemorrhage, midline shift or extra-a xial fluid collections are noted. Posterior Fossa: The cerebellum and brainstem are intact. The 4th ventricle is midline. The cerebe llopontine angle is unremarkable. Extracranial: The visualized portion of the orbits is intact. Skull: The calvaria is intact. No evidence of skull fracture. CONCLUSION: 1. Ventriculomegaly consistent with central cerebral atrophy versus hydrocephalus. Clinical correlat ion is recommended. 2. Mild periventricular and subcortical white matter small vessel ischemic changes bilaterally. 3. No acute infarct, acute hemorrhage, midline shift or extra-axial fluid collections. . Electronically signed by: Mane Miranda MD 03/04/2018 12:26 PM EDT
[2018-03-04 14:26] LABS: Calcium 8.9 mg/dL (8.5-10.1); Carbon Dioxide 24.6 meq/L (21.0-32.0)
--- NOTE | 2018-03-04 15:12 | ED ---
HPI General Chief complaint: Altered Mental Status Stated complaint: AMS Time Seen by Provider: 03/04/18 09:11 Source: patient, family and EMS Mode of arrival: EMS Limitations: altered mental status History of Present Illness HPI narrative: An 82-year-old female that was brought in from home by EMS after family reported mild confusion that started earlier this morning and history of recurrent UTIs. Apparently as per family the patient was putting inappropriate things into the trash and appearing confused in the house altered and was brought in for evaluation. Denies any nausea vomiting or diarrhea no urinary symptoms at this time alert and oriented. There is concern for confusion due to urinary tract infection versus stroke at this time. Patient does not have any focal neurologic deficits. Onset (ago): unknown Associated symptoms: Reports confusion Related Data Home Medications Medication Instructions Recorded Confirmed albuterol sulfate 2.5 mg INHALATION Q4H PRN 12/18/17 03/04/18 atorvastatin 40 mg PO HS 12/18/17 03/04/18 furosemide 20 mg PO BID 12/18/17 03/04/18 ipratropium bromide 0.5 mg INHALATION Q4H PRN 12/18/17 03/04/18 isosorbide mononitrate 120 mg PO DAILY 12/18/17 03/04/18 metformin 500 mg PO DAILY 12/18/17 03/04/18 metoprolol tartrate 50 mg PO BID 12/18/17 03/04/18 nitroglycerin [Nitrostat] 0.4 mg SUBLINGUAL Q5-15M PRN 12/18/17 03/04/18 omeprazole 20 mg PO DAILY 12/18/17 03/04/18 potassium chloride [K-Tab] 10 meq PO DAILY 12/18/17 03/04/18 rivaroxaban [Xarelto] 20 mg PO DAILY 12/18/17 03/04/18 cephalexin [Keflex] 500 mg PO TID 03/04/18 03/04/18 clonidine HCl 0.1 mg PO BID PRN 03/04/18 03/04/18 Previous Rx's Medication Instructions Recorded hydrocodone-acetaminophen [[place]] 1 tab PO TID PRN #9 tab 12/21/17 Allergies Allergy/AdvReac Type Severity Reaction Status Date / Time rosuvastatin [From Crestor] Allergy Cramping Verified 03/04/18 10:06 of the Muscles Review of Systems ROS: all other systems reviewed are negative Constitutional Denies body ache(s), Denies chills, Denies fatigue, Denies fever(s), Denies increased appetite, Denies malaise and Denies weakness Neurologic Reports system reviewed and no additional complaints, except as docu [facility] Medical History Medical History CAD (coronary artery disease) (Acute) DVT (deep venous thrombosis) (Acute) High cholesterol (Acute) COPD (chronic obstructive pulmonary disease) (Acute) Diabetes (Acute) GERD (gastroesophageal reflux disease) (Acute) Heart attack (Acute) Hypertension (Acute) Surgical History Surgical History Hx of cataract surgery (Acute) S/P CABG x 2 (Acute) History of orthopedic surgery (Acute) Social History Social History Substance History: No History of Abuse Second Hand Smoke Exposure: No Smoking Status: Former smoker How Often Do You Have a Drink Containing Alcohol: Monthly or less Recent Travel in [facility] within the Last 8 Weeks: No Recent Out of Country Travel within the Last 8 Weeks: No Immunization History Tetanus Immunization: Unsure Hx Influenza Vaccine This Season: No Exam Neuro General: alert, awake, oriented x3, tone normal, moves all extremities, normal light touch, pain and propioception, no meningeal signs, no focal motor deficits , CN's II-XI intact bilaterally, normal sensation to monofilament, not confused , not obtunded and unable to assess gait Speech: speech normal Sensory Exam: no sensory deficits noted Course Hospital Course: Patient with multiple electrolyte abnormalities but initially treated with calcium gluconate for hypocalcemia however will repeat at the [facility] and appears that it was an erroneous lab result. Patient not hypokalemic and hypocalcemic on repeat labs. Chloride and sodium in appropriate levels. There is no urinary tract infection. She did receive calcium gluconate initially and potassium chloride p.o. Analgesia was provided with [place]. Was no signs of infectious process on chest x-ray and head CT seemed unremarkable. There is no focal neurologic deficits. The patient has an anemia of 7.7 with a hemoglobin of 11.5 on December 20 of this year. Her guaiac was negative for occult blood. She has no epigastric pain at this time no signs of perforation or concern for 1. Will admit for further evaluation of her anemia as well as possible neurologic evaluation to decipher whether patient has a cerebrovascular accident TIA versus onset of dementia. Initial Documented Vital Signs Temperature 98.3 F 03/04/18 09:21 Pulse Rate 77 03/04/18 09:21 Respiratory Rate 16 03/04/18 09:21 Blood Pressure 154/74 H 03/04/18 09:21 Pulse Oximetry 95 03/04/18 09:21 Last Documented Vital Signs Temperature 98.3 F 03/04/18 09:21 Pulse Rate 81 03/04/18 18:00 Respiratory Rate 18 03/04/18 18:00 Blood Pressure 102/49 L 03/04/18 18:00 Pulse Oximetry 95 03/04/18 18:00 Medical Decision Making MDM Narrative Medical decision making narrative: Patient hemodynamically stable was slightly confused with negative imaging. Anemia noted erroneous electrolyte abnormalities were also noted. Will admit for further evaluation. Medical Screen Exam Complete: Yes Emergency Medical Condition: Yes Medical Records Medical records reviewed: Yes I reviewed the patient's medical records. Lab Data Lab results reviewed: Yes I reviewed the patient's lab results. Result diagrams: 03/04/18 09:50 03/04/18 13:40 Lab Results 03/04/18 03/04/18 03/04/18 Range/Units 09:50 09:50 09:50 WBC 5.3 (4.0-11.0) th/mm3 RBC 2.92 L (4.00-5.30) mil/mm3 Hgb 7.7 L (11.6-15.3) gm/dL Hct 24.0 L (35.0-46.0) % MCV 82.2 (80.0-100.0) fL MCH 26.2 L (27.0-34.0) pg MCHC 31.9 L (32.0-36.0) % RDW 15.3 (11.6-17.2) % Plt Count 122 L (150-450) th/mm3 MPV 8.1 (7.0-11.0) fL Neut % (Auto) 55.9 (16.0-70.0) % Lymph % (Auto) 33.8 (9.0-44.0) % [place] % (Auto) 9.4 H (0.0-8.0) % Eos % (Auto) 0.5 (0.0-4.0) % Baso % (Auto) 0.4 (0.0-2.0) % Neut # (Auto) 3.0 (1.8-7.7) th/mm3 Lymph # (Auto) 1.8 (1.0-4.8) th/mm3 Crowley # (Auto) 0.5 (0.0-0.9) th/mm3 Eos # (Auto) 0.0 (0.0-0.4) th/mm3 Baso # (Auto) 0.0 (0.0-0.2) th/mm3 WBC Differential . Differential Comment Auto diff final Sodium 146 H (136-145) meq/L Potassium 3.0 L (3.5-5.1) meq/L Chloride 119 H (98-107) meq/L Carbon Dioxide 21.6 (21.0-32.0) meq/L Anion Gap 5 (5-15) meq/L BUN 17 (7-18) mg/dL Creatinine 0.65 (0.50-1.00) mg/dL Estimated GFR 87 L (>89) mL/min POC Glucose (68-110) mg/dl Random Glucose 71 L (74-106) mg/dL Lactic Acid 1.7 (0.4-2.0) mmol/L Calcium 6.3 L* (8.5-10.1) mg/dL Prot Corrected Calcium 7.4 L* (8.5-10.1) mg/dL Total Protein 4.9 L (6.4-8.2) g/dL Urine Color (Yellw/Straw) Urine Clarity (Clear) Urine pH (5.0-8.5) Ur Specific [place] (1.002-1.035) Urine Protein (Neg-Trace) mg/dL Urine Glucose (UA) (Negative) mg/dL Urine Ketones (Negative) mg/dL Urine Occult Blood (Negative) Urine Nitrate (Negative) Urine Bilirubin (Negative) Urine Urobilinogen (Less than 2) mg/dL Ur Leukocyte Esterase (Negative) Urine WBC (0-5) /hpf Hyaline Casts (0-3) /lpf Micro UA Comment Ur Microscopic Review Urine Culture Comments 03/04/18 03/04/18 03/04/18 Range/Units 10:10 13:40 17:51 WBC (4.0-11.0) th/mm3 RBC (4.00-5.30) mil/mm3 Hgb (11.6-15.3) gm/dL Hct (35.0-46.0) % MCV (80.0-100.0) fL MCH (27.0-34.0) pg MCHC (32.0-36.0) % RDW (11.6-17.2) % Plt Count (150-450) th/mm3 MPV (7.0-11.0) fL Neut % (Auto) (16.0-70.0) % Lymph % (Auto) (9.0-44.0) % Crowley % (Auto) (0.0-8.0) % Eos % (Auto) (0.0-4.0) % Baso % (Auto) (0.0-2.0) % Neut # (Auto) (1.8-7.7) th/mm3 Lymph # (Auto) (1.0-4.8) th/mm3 Crowley # (Auto) (0.0-0.9) th/mm3 Eos # (Auto) (0.0-0.4) th/mm3 Baso # (Auto) (0.0-0.2) th/mm3 WBC Differential Differential Comment Sodium 144 (136-145) meq/L Potassium 4.0 D (3.5-5.1) meq/L Chloride 109 H D (98-107) meq/L Carbon Dioxide 24.6 (21.0-32.0) meq/L Anion Gap 10 (5-15) meq/L BUN 18 (7-18) mg/dL Creatinine 0.92 (0.50-1.00) mg/dL Estimated GFR 58 L (>89) mL/min POC Glucose 92 (68-110) mg/dl Random Glucose 120 H (74-106) mg/dL Lactic Acid (0.4-2.0) mmol/L Calcium 8.9 D (8.5-10.1) mg/dL Prot Corrected Calcium (8.5-10.1) mg/dL Total Protein (6.4-8.2) g/dL Urine Color Yellow (Yellw/Straw) Urine Clarity Clear (Clear) Urine pH 5.0 (5.0-8.5) Ur Specific [place] 1.017 (1.002-1.035) Urine Protein Negative (Neg-Trace) mg/dL Urine Glucose (UA) Negative (Negative) mg/dL Urine Ketones Negative (Negative) mg/dL Urine Occult Blood Negative (Negative) Urine Nitrate Negative (Negative) Urine Bilirubin Negative (Negative) Urine Urobilinogen Less than 2 (Less than 2) mg/dL Ur Leukocyte Esterase Negative (Negative) Urine WBC 1 (0-5) /hpf Hyaline Casts 4 (0-3) /lpf Micro UA Comment Culture not ind Ur Microscopic Review Not Reportable Urine Culture Comments Culture not ind Imaging Data Radiologist's impression: Chest X-Ray 03/04/18 09:16 CONCLUSION: 1. Minimal central pulmonary vascular congestion. 2. Cardiomegaly. Head CT 03/04/18 09:16 CONCLUSION: 1. Ventriculomegaly consistent with central cerebral atrophy versus hydrocephalus. Clinical correlation is recommended. 2. Mild periventricular and subcortical white matter small vessel ischemic changes bilaterally. 3. No acute infarct, acute hemorrhage, midline shift or extra-axial fluid collections. . ECG Data Attestation: I personally reviewed and interpreted this ECG as follows: Discharge Plan Discharge Disposition Patient Disposition: 30 Still Patient Discharge Condition Condition: Good Discharge Details Diagnosis: Anemia, Acute confusion Physicians Team ED Provider: Noe Barnett Primary Care Provider: Abdi Hill Attending Provider: Gilson Srinivasan Discharge Interventions Interventions: ED Discharge Assessment Last Done: 03/04/18 18:15 Vital Signs Last Done: 03/04/18 15:00 Status ED Status: Left Department Discharge Information Discharge Date/Time: 03/04/18 18:15
--- NOTE | 2018-03-04 15:44 | P.HPIM ---
History of Present Illness Primary Care Physician: Abdi Hill MD Chief Complaint: Confusion History of Present Illness: Mrs. Whiteside is an 82 y/o female with chronic LE DVTs, DM, CAD s/p CABG 2001, COPD, HTN, hyperlipidemia, GERD and PAD s/p femoropopliteal bypass performed by Dr. Aviles 04/2017 complicated by infection requiring I&D. Pt was brought to the ED at [facility]18 after family reported mild confusion that started earlier this morning and history of recurrent UTIs. When she was admitted to [facility] in November 2017 she had a urine culture which grew out pseudomonas aeruginosa and Morganella morganii and was discharged on Cipro. On January 21, 2018 pt had a an outpt urine culture growing Proteus mirabilis and pt was treated with Trimethoprim 100mg BID x 7 days. Repeat UA on 02/01 was again abnormal with noted trace leuk esterase and pt was prescribed Amoxicillin 500mg TID x 7 days. In review of her outpt records it appears she was also prescribed Nitrofurantoin 100mg BID on 02/09/18 and 02/17/18. Pt reports that she was brought into the ED for "going crazy" this morning. She states that she woke up during the night and didn't know where where she was at and her neighbors called her family and the pt was delusional seeing men in her yard. Her family report the patient was putting inappropriate things into the trash this morning, the pt was disheveled with her pants around her ankles, teeth on the ground, and appeared confused and this is was prompted her to be brought in for evaluation. Pt denies any nausea/vomiting or diarrhea. No urinary symptoms reported at this time and pt is alert and oriented. She states that she does not typically have burning or frequent urination. She denies any foul smelling urine. Patient does not have any focal neurologic deficits. Pts UA in the ED was negative. Head CT in the ED noted ventriculomegaly consistent with central cerebral atrophy versus hydrocephalus, mild periventricular and subcortical white matter small vessel ischemic changes bilaterally, but no acute infarct, acute hemorrhage, midline shift or extra-axial fluid collections. Her CBC revealed a decrease in her Hgb down to 7.7 from her previous labs on 01/06/18 noted Hgb 12.4. No reported melena or BRBPR. Denies any abd pain, nausea/vomiting, diarrhea, dizziness or weakness. Pt reportedly had a negative guaiac stool test in the ED. Pt reports that she has chronic pain, redness and swelling in the LLE. She was started on Doxycycline on 02/25/19 for possible cellulitis in the LE. She states that she for the last week she has had an open wound with drainage on the RLE and has been receiving local wound care. She reports that she is following with podiatry for this. She does not feel that her legs look any worse than it typically does. Past Medical History Chronic DVT in left common femoral vein, and left femoral vein and left popliteal vein. CAD s/p CABG 2001 COPD/chronic bronchitis HTN Hyperlipidemia GERD PAD s/p femoropopliteal bypass performed by Dr. Aviles 04/2017 complicated by infection requiring I&D. This was complicated by infection requiring hospitalization 06/16/17 - 06/25/17. Culture at that time grew MSSA and Pseudomonas. Patient was DC to rehab on IV Zosyn. Patient then readmitted to [facility] 07/09/17 underwent a incision, debridement and drainage of left thigh wound. Past Surgical History EGD/colonoscopy (10/05/11) --> Mild to moderate esophagitis with irregular Z-line , s/p dilation to 16mm, moderate diverticulosis in the sigmoid colon, small internal hemorrhoids. CABG 2001 Femoropopliteal bypass performed by Dr. Aviles 04/2017 complicated by infection requiring I&D Excision of basal cell carcinoma on back Reported Medications -Xarelto 20mg PO DAILY -Metformin 500 Mg PO DAILY -Potassium Chloride ER 10 Meq PO DAILY -Furosemide 20 Mg PO BID -Lipitor 40 Mg PO HS -Omeprazole 20 Mg PO DAILY -Metoprolol Tartrate 50 Mg PO BID -Isosorbide Mononitrate ER 120 Mg PO DAILY -Albuterol/Ipratropium Nebs Q4H PRN Family History Positive for CAD Social History Lives alone Quit smoking 2001 prior to that smoked 1 to 1.5 PPD for 40- 45 years. Pts son lives locally - Diagnosis (1) Confusion (2) Anemia (3) HTN (hypertension) (4) Hyperlipidemia (5) Chronic deep vein thrombosis (DVT) Review of Systems Constitutional: Denies chills, Denies fever(s) Eyes: Denies change in vision, Denies loss of vision Ears, Nose, Mouth, and Throat: Denies dizziness, Denies nasal congestion, Denies sore throat Cardiovascular: Denies chest pain, Denies rapid, pounding, or irregular heartbeat, Denies shortness of breath Respiratory: Denies chest congestion, Denies cough, Denies shortness of breath Gastrointestinal: Denies abdominal pain, Denies constipation, Denies loose stools, Denies nausea, Denies vomiting Genitourinary: Denies urinary incontinence, Denies urinary urgency Musculoskeletal: Denies back pain, Denies neck pain Skin/Breast: Denies rash, Denies wounds Neurologic: Reports confusion PMFSH - History History Provided By: Patient, Family Member - Medical History Medical History: Medical History (Last Reviewed 03/05/18 @ 08:58 by Breana Murguia) CAD (coronary artery disease) COPD (chronic obstructive pulmonary disease) DVT (deep venous thrombosis) Diabetes GERD (gastroesophageal reflux disease) Heart attack High cholesterol Hypertension - Surgical History Surgical History: Surgical History (Last Reviewed 03/05/18 @ 08:58 by Breana Murguia) History of orthopedic surgery Hx of cataract surgery S/P CABG x 2 - Tobacco History Second Hand Smoke Exposure: No Tobacco Use In Past 30 Days: No Smoking Status: Former smoker - Alcohol History How Often Do You Have a Drink Containing Alcohol: Monthly or less - Substance Use History Substance History: No History of Abuse - Travel History Recent Travel in the [place] Within the Last 8 Weeks: No Recent Travel Out of the Country Within the Last 8 Weeks: No - Immunization History Tetanus Immunization: Unsure Hx Influenza Vaccine This Season: No Medications and Allergies Allergies Allergy/AdvReac Type Severity Reaction Status Date / Time rosuvastatin [From Crestor] Allergy Cramping Verified 03/04/18 10:06 of the [facility] [place] Medications Medication Instructions Recorded Confirmed Type albuterol sulfate 2.5 mg INHALATION Q4H PRN 12/18/17 03/04/18 History atorvastatin 40 mg PO HS 12/18/17 03/04/18 History furosemide 20 mg PO BID 12/18/17 03/04/18 History ipratropium bromide 0.5 mg INHALATION Q4H PRN 12/18/17 03/04/18 History isosorbide mononitrate 120 mg PO DAILY 12/18/17 03/04/18 History metformin 500 mg PO DAILY 12/18/17 03/04/18 History metoprolol tartrate 50 mg PO BID 12/18/17 03/04/18 History nitroglycerin [Nitrostat] 0.4 mg SUBLINGUAL Q5-15M PRN 12/18/17 03/04/18 History omeprazole 20 mg PO DAILY 12/18/17 03/04/18 History potassium chloride [K-Tab] 10 meq PO DAILY 12/18/17 03/04/18 History rivaroxaban [Xarelto] 20 mg PO DAILY 12/18/17 03/04/18 History clonidine HCl 0.1 mg PO BID PRN 03/04/18 03/04/18 History Exam Vital signs: Vital Signs 03/04/18 09:21 03/04/18 10:00 03/04/18 11:00 Temperature 98.3 F Pulse Rate 77 86 78 Respiratory Rate 16 16 18 Blood Pressure 154/74 H 161/67 H 142/62 H Pulse Oximetry 95 96 98 03/04/18 12:00 Temperature Pulse Rate 84 Respiratory Rate 20 Blood Pressure Pulse Oximetry 98 Intake & Output 03/03/18 03/04/18 03/04/18 18:59 06:59 18:59 Intake Total 1110 / 1110 Balance 1110 / 1110 Weight 82.1 kg Intake: IV 1110 / 1110 Calcium Gluconate Inj 1 GM In 110 / 110 D5W Inj 100 ML @ 110 mls/hr IV. SIG ONCE ONE Rx#:[id number] NS Inj 1,000 ML @ Wide Open IV. 1000 / 1000 SIG BOLUS ONE Rx#:[id number] Narrative: GENERAL: NAD, AAOx3 SKIN: Warm and dry. HEENT: Atraumatic. Normocephalic. Pupils equal and round. No scleral icterus. No injection or drainage. No nasal bleeding or discharge. Mucous membranes pink and moist. NECK: Trachea midline. No JVD. CARDIO: Regular rate and rhythm. RESP: No accessory muscle use. Clear to auscultation. Breath sounds equal bilaterally. ABD: Abdomen soft, non-tender, nondistended. Hepatic and splenic margins not palpable. EXT: Bilateral LE edema. RLE with wrap in place. LLE with erythema, warmth and tenderness. NEURO: Awake and alert. No obvious cranial nerve deficits. Motor grossly within normal limits. Five out of 5 muscle strength in the arms and legs. Normal speech. PSYCHIATRIC: Appropriate mood and affect; insight and judgment normal. Results - Labs CBC & Chem 7: 03/06/18 07:10 03/06/18 07:10 Labs: Short CBC 03/04/18 Range/Units 09:50 WBC 5.3 (4.0-11.0) th/mm3 Hgb 7.7 L (11.6-15.3) gm/dL Hct 24.0 L (35.0-46.0) % Plt Count 122 L (150-450) th/mm3 BMP 03/04/18 03/04/18 09:50 13:40 Sodium 146 H 144 Potassium 3.0 L 4.0 D Chloride 119 H 109 H D Carbon Dioxide 21.6 24.6 BUN 17 18 Creatinine 0.65 0.92 Calcium 6.3 L* 8.9 D Urine 03/04/18 Range/Units 10:10 Urine Color Yellow (Yellw/Straw) Urine Clarity Clear (Clear) Urine pH 5.0 (5.0-8.5) Ur Specific [place] 1.017 (1.002-1.035) Urine Protein Negative (Neg-Trace) mg/dL Urine Glucose (UA) Negative (Negative) mg/dL - Imaging Impressions Chest X-Ray 03/04/18 09:16 CONCLUSION: 1. Minimal central pulmonary vascular congestion. 2. Cardiomegaly. Head CT 03/04/18 09:16 CONCLUSION: 1. Ventriculomegaly consistent with central cerebral atrophy versus hydrocephalus. Clinical correlation is recommended. 2. Mild periventricular and subcortical white matter small vessel ischemic changes bilaterally. 3. No acute infarct, acute hemorrhage, midline shift or extra-axial fluid collections. . Caprini VTE Risk Assessment Caprini VTE Risk Assessment: Moderate/High Risk (score >= 2) Caprini Risk Assessment Model: Point Value = 1 Point Value = 2 Point Value = 3 Point Value = 5 Age 41-60 Minor surgery BMI > 25 kg/m2 Swollen legs Varicose veins or History of unexplained or recurrent spontaneous Oral contraceptives or hormone replacement Sepsis (< 1 month) Serious lung disease, including pneumonia (< 1 month) Abnormal pulmonary function Acute myocardial infarction Congestive heart failure (< 1 month) History of inflammatory bowel disease Medical patient at bed rest Age 61-74 Arthroscopic surgery Major open surgery (> 45 min) Laparoscopic surgery (> 45 min) Malignancy Confined to bed (> 72 hours) Immobilizing plaster cast Central venous access Age >= 75 History of VTE Family history of VTE Factor V Leiden Prothrombin [id number] Lupus anticoagulant Anticardiolipin antibodies Elevated serum homocysteine Heparin-induced thrombocytopenia Other congenital or acquired thrombophilia Stroke (< 1 month) Elective arthroplasty Hip, pelvis, or leg fracture Acute spinal cord injury (< 1 month) Prophylaxis Regimen: Total Risk Factor Score Risk Level Prophylaxis Regimen 0-1 Low Early ambulation 2 Moderate Order ONE of the following: *Sequential Compression Device (SCD) *Heparin 5000 units SQ BID 3-4 Higher Order ONE of the following medications: *Heparin 5000 units SQ TID *Enoxaparin/Lovenox 40 mg SQ daily (WT < 150 kg, CrCl > 30 mL/min) *Enoxaparin/Lovenox 30 mg SQ daily (WT < 150 kg, CrCl > 10-29 mL/min) *Enoxaparin/Lovenox 30 mg SQ BID (WT < 150 kg, CrCl > 30 mL/min) AND/OR *Sequential Compression Device (SCD) 5 or more Highest Order ONE of the following medications: *Heparin 5000 units SQ TID (Preferred with Epidurals) *Enoxaparin/Lovenox 40 mg SQ daily (WT < 150 kg, CrCl > 30 mL/min) *Enoxaparin/Lovenox 30 mg SQ daily (WT < 150 kg, CrCl > 10-29 mL/min) *Enoxaparin/Lovenox 30 mg SQ BID (WT < 150 kg, CrCl > 30 mL/min) AND *Sequential Compression Device (SCD) Assessment and Plan - Assessment (1) Confusion Code(s): R41.0 - Disorientation, unspecified Status: Acute Plan: AMS/Delusional, transient, etiology unclear - Pt is an 82 y/o female with chronic LE DVT, DM, CAD s/p CABG 2001, COPD, HTN, hyperlipidemia, GERD and PAD s/p femoropopliteal bypass performed by Dr. Aviles 04/2017 complicated by infection requiring I&D. - Pt was brought to the ED at [facility] on 03/04/18 after family reported mild confusion that started earlier this morning. She states that she woke up during the night and didn't know where where she was at and her neighbors called her family and the pt was delusional seeing men in her yard. Her family report the patient was putting inappropriate things into the trash this morning, the pt was disheveled with her pants around her ankles, teeth on the ground, and appeared confused and this is was prompted her to be brought in for evaluation. Pt denies any nausea/vomiting or diarrhea. No urinary symptoms reported at this time and pt is alert and oriented. - Pt became more oriented after the paramedics arrived and the pt can recall the events of what happened. - Head CT in the ED noted ventriculomegaly consistent with central cerebral atrophy versus hydrocephalus, mild periventricular and subcortical white matter small vessel ischemic changes bilaterally, but no acute infarct, acute hemorrhage, midline shift or extra-axial fluid collections. - Her CBC revealed a decrease in her Hgb down to 7.7 from her previous labs on noted Hgb 12.4. No reported melena or BRBPR. Pt reportedly had a negative guaiac stool test in the ED. - Recheck CBC today and in AM to see if the labs at admission were an accurate reading - Hold her Xarelto until we get a repeat CBC - Offered the pt evaluation with MRI Brain to r/o CVA and the pt declined this. - She had some electrolyte abnormalities on initial labs but its not clear if these were drawn properly as repeat BMP noted improvement in her electrolyses but the pts family reports that she was given IV Calcium and po Potassium prior to the labs being redrawn despite that it indicates that the labs were drawn before the meds were given in the computer. - Recheck electrolyte in AM - Blood cultures are pending - Telemetry - PT evaluation in AM - Supportive care Hx of recurrent UTIs - When she was previously admitted to [facility] in November 2017 she had a urine culture which grew out pseudomonas aeruginosa and Morganella morganii and was discharged on Cipro. - On January 21, 2018 pt had a an outpt urine culture growing Proteus mirabilis and pt was treated with Trimethoprim 100mg BID x 7 days. Repeat UA on 02/01 was again abnormal with noted trace leuk esterase and pt was prescribed Amoxicillin 500mg TID x 7 days. In review of her outpt records it appears she was also prescribed Nitrofurantoin 100mg BID on 02/09/18 and 02/17/18. - Pts UA in the ED was negative. PAD Chronic LE DVT Possible cellulitis - Pt reports that she has chronic pain, redness and swelling in the LLE. - She was started on Doxycycline on 02/25/19 for possible cellulitis in the LE. She states that she for the last week she has had an open wound with drainage on the RLE and has been receiving local wound care. She reports that she is following with podiatry for this. She does not feel that her legs look any worse than it typically does. - Consult wound care - Pt is s/p femoropopliteal bypass performed by Dr. Aviles 04/2017 complicated by infection requiring I&D. This was complicated by infection requiring hospitalization 06/16/17 - 06/25/17. Culture at that time grew MSSA and Pseudomonas. She was treated with IV Zosyn at that time. - Start cefazolin 1gram Q8H IV - Monitor clinical status The exam, history, and the medical decision-making described in the above note were completed with the assistance of the mid-level provider. I reviewed and agree with the findings presented. I attest that I had a [id number] encounter with the patient on the same day, and personally performed and documented my assessment and findings in the medical record. (2) Anemia Code(s): D64.9 - Anemia, unspecified Status: Acute (3) HTN (hypertension) Code(s): I10 - Essential (primary) hypertension Status: Chronic (4) Hyperlipidemia Code(s): E78.5 - Hyperlipidemia, unspecified Status: Chronic (5) Chronic deep vein thrombosis (DVT) Code(s): I82.509 - Chronic embolism and thrombosis of unspecified deep veins of unspecified lower extremity Status: Chronic
[2018-03-04] MEDS ORDERED: Acetaminophen 325 MG Tablet PO PRN (15:45)
[2018-03-04] MEDS ORDERED: Dextrose 50% in Water 50 ML Vial IV.PUSH PRN (16:03)
[2018-03-04] MEDS: Insulin NovoLOG Aspart Correctional Sugar Inj SQ SCH ×2 (17:54→23:21)
[2018-03-04] MEDS: Furosemide 20 MG Tablet PO SCH (20:26)
[2018-03-04] MEDS: Senna/Docusate Sodium 8.6/50 MG Tablet PO SCH (20:26)
[2018-03-04] MEDS: Metoprolol Tartrate 50 MG Tablet PO SCH (20:26)
[2018-03-05 08:28] LABS: Blood Urea Nitrogen 18 mg/dL (7-18); Calcium 8.8 mg/dL (8.5-10.1); Chloride 113 meq/L (98-107); Glucose,Random 94 mg/dL (74-106); Potassium 4.3 meq/L (3.5-5.1); Sodium 145 meq/L (136-145)
[2018-03-05] MEDS: Insulin NovoLOG Aspart Correctional Sugar Inj SQ SCH ×4 (08:30→21:32)
[2018-03-05 08:32] LABS: Albumin 2.7 g/dL (3.4-5.0); Alkaline Phosphatase 98 U/L (45-117); Anion Gap 8 meq/L (5-15); Aspartate Aminotransferase 24 U/L (15-37); Carbon Dioxide 23.6 meq/L (21.0-32.0); Glomerular Filtration Rate 67 mL/min (>89); Total Protein 6.1 g/dL (6.4-8.2)
[2018-03-05 08:43] LABS: Alanine Aminotransferase 20 U/L (10-53)
--- NOTE | 2018-03-05 09:07 | P.PNIM ---
Subjective Interval history: Pt overall feeling well this morning She slept mostly through the night Pts legs appear less swollen this morning but LLE still red and painful She complains that the nurses wont help her to the bedside commode and are having her to use the bed new Physical Exam Vital signs: Vital Signs 03/04/18 09:21 03/04/18 10:00 03/04/18 11:00 Temperature 98.3 F Pulse Rate 77 86 78 Respiratory Rate 16 16 18 Blood Pressure 154/74 H 161/67 H 142/62 H Pulse Oximetry 95 96 98 03/04/18 12:00 03/04/18 15:00 03/04/18 16:00 Temperature Pulse Rate 84 58 L 68 Respiratory Rate 20 21 18 Blood Pressure 154/67 H 144/60 H Pulse Oximetry 98 96 95 03/04/18 18:00 03/04/18 19:57 03/04/18 20:00 Temperature 98.2 F Pulse Rate 81 77 72 Respiratory Rate 18 16 Blood Pressure 102/49 L 144/65 H Pulse Oximetry 95 93 L 98 03/05/18 00:00 03/05/18 00:55 03/05/18 04:00 Temperature 98.2 F 98.1 F Pulse Rate 66 59 L 62 Respiratory Rate 16 16 Blood Pressure 140/65 143/65 H Pulse Oximetry 92 L 95 03/05/18 04:32 03/05/18 08:00 Temperature 98.0 F Pulse Rate 66 64 Respiratory Rate 16 Blood Pressure 155/84 H Pulse Oximetry 96 Intake & Output 03/04/18 03/05/18 03/05/18 18:59 06:59 18:59 Intake Total 1110 / 1110 440 / 440 Output Total 700 / 700 Balance 1110 / 1110 -260 / -260 Weight 82.1 kg 85.6 kg Intake: IV 1110 / 1110 200 / 200 Calcium Gluconate Inj 1 GM In 110 / 110 D5W Inj 100 ML @ 110 mls/hr IV. SIG ONCE ONE Rx#:[id number] NS Inj 1,000 ML @ Wide Open IV. 1000 / 1000 SIG BOLUS ONE Rx#:[id number] Ancef Inj 1,000 MG In NS Inj 200 / 200 100 ML @ 200 mls/hr IV.SIG Q8H KO Rx#:[id number] Oral 240 / 240 Output: Urine 700 / 700 Other: # Voids 5 Narrative: GENERAL: NAD, AAOx3 CARDIO: Regular rate and rhythm. RESP: CTA bilaterally. ABD: Abdomen soft, non-tender, nondistended. EXT: Bilateral LE edema, less today. RLE with wrap in place. LLE with erythema, warmth and tenderness. Results - Labs CBC & Chem 7: 03/04/18 09:50 03/05/18 06:55 Laboratory Results - last 24 hr 03/04/18 03/04/18 03/04/18 09:50 09:50 09:50 WBC 5.3 RBC 2.92 L Hgb 7.7 L Hct 24.0 L MCV 82.2 MCH 26.2 L MCHC 31.9 L RDW 15.3 Plt Count 122 L MPV 8.1 Neut % (Auto) 55.9 Lymph % (Auto) 33.8 [place] % (Auto) 9.4 H Eos % (Auto) 0.5 Baso % (Auto) 0.4 Neut # (Auto) 3.0 Lymph # (Auto) 1.8 [place] # (Auto) 0.5 Eos # (Auto) 0.0 Baso # (Auto) 0.0 WBC Differential . Differential Comment Auto diff final Sodium 146 H Potassium 3.0 L Chloride 119 H Carbon Dioxide 21.6 Anion Gap 5 BUN 17 Creatinine 0.65 Estimated GFR 87 L POC Glucose Random Glucose 71 L Lactic Acid 1.7 Calcium 6.3 L* Prot Corrected Calcium 7.4 L* Total Bilirubin AST ALT Alkaline Phosphatase Total Protein 4.9 L Albumin Urine Color Urine Clarity Urine pH Ur Specific [place] Urine Protein Urine Glucose (UA) Urine Ketones Urine Occult Blood Urine Nitrate Urine Bilirubin Urine Urobilinogen Ur Leukocyte Esterase Urine WBC Hyaline Casts Micro UA Comment Ur Microscopic Review Urine Culture Comments 03/04/18 03/04/18 03/04/18 10:10 13:40 17:51 WBC RBC Hgb Hct MCV MCH MCHC RDW Plt Count MPV Neut % (Auto) Lymph % (Auto) [place] % (Auto) Eos % (Auto) Baso % (Auto) Neut # (Auto) Lymph # (Auto) [place] # (Auto) Eos # (Auto) Baso # (Auto) WBC Differential Differential Comment Sodium 144 Potassium 4.0 D Chloride 109 H D Carbon Dioxide 24.6 Anion Gap 10 BUN 18 Creatinine 0.92 Estimated GFR 58 L POC Glucose 92 Random Glucose 120 H Lactic Acid Calcium 8.9 D Prot Corrected Calcium Total Bilirubin AST ALT Alkaline Phosphatase Total Protein Albumin Urine Color Yellow Urine Clarity Clear Urine pH 5.0 Ur Specific [place] 1.017 Urine Protein Negative Urine Glucose (UA) Negative Urine Ketones Negative Urine Occult Blood Negative Urine Nitrate Negative Urine Bilirubin Negative Urine Urobilinogen Less than 2 Ur Leukocyte Esterase Negative Urine WBC 1 Hyaline Casts 4 Micro UA Comment Culture not ind Ur Microscopic Review Not Reportable Urine Culture Comments Culture not ind 03/04/18 03/04/18 03/05/18 21:51 23:10 06:55 WBC RBC Hgb Hct MCV MCH MCHC RDW Plt Count MPV Neut % (Auto) Lymph % (Auto) [place] % (Auto) Eos % (Auto) Baso % (Auto) Neut # (Auto) Lymph # (Auto) [place] # (Auto) Eos # (Auto) Baso # (Auto) WBC Differential Differential Comment Sodium 145 Potassium 4.3 Chloride 113 H Carbon Dioxide 23.6 Anion Gap 8 BUN 18 Creatinine 0.82 Estimated GFR 67 L POC Glucose 272 H 146 H Random Glucose 94 Lactic Acid Calcium 8.8 Prot Corrected Calcium Total Bilirubin 0.8 AST 24 ALT 20 Alkaline Phosphatase 98 Total Protein 6.1 L D Albumin 2.7 L Urine Color Urine Clarity Urine pH Ur Specific [place] Urine Protein Urine Glucose (UA) Urine Ketones Urine Occult Blood Urine Nitrate Urine Bilirubin Urine Urobilinogen Ur Leukocyte Esterase Urine WBC Hyaline Casts Micro UA Comment Ur Microscopic Review Urine Culture Comments 03/05/18 08:18 WBC RBC Hgb Hct MCV MCH MCHC RDW Plt Count MPV Neut % (Auto) Lymph % (Auto) [place] % (Auto) Eos % (Auto) Baso % (Auto) Neut # (Auto) Lymph # (Auto) [place] # (Auto) Eos # (Auto) Baso # (Auto) WBC Differential Differential Comment Sodium Potassium Chloride Carbon Dioxide Anion Gap BUN Creatinine Estimated GFR POC Glucose 96 Random Glucose Lactic Acid Calcium Prot Corrected Calcium Total Bilirubin AST ALT Alkaline Phosphatase Total Protein Albumin Urine Color Urine Clarity Urine pH Ur Specific [place] Urine Protein Urine Glucose (UA) Urine Ketones Urine Occult Blood Urine Nitrate Urine Bilirubin Urine Urobilinogen Ur Leukocyte Esterase Urine WBC Hyaline Casts Micro UA Comment Ur Microscopic Review Urine Culture Comments - Imaging Impressions Chest X-Ray 03/04/18 09:16 CONCLUSION: 1. Minimal central pulmonary vascular congestion. 2. Cardiomegaly. Head CT 03/04/18 09:16 CONCLUSION: 1. Ventriculomegaly consistent with central cerebral atrophy versus hydrocephalus. Clinical correlation is recommended. 2. Mild periventricular and subcortical white matter small vessel ischemic changes bilaterally. 3. No acute infarct, acute hemorrhage, midline shift or extra-axial fluid collections. . Assessment and Plan - Assessment (1) Confusion Code(s): R41.0 - Disorientation, unspecified Status: Acute Plan: AMS/Delusional, transient, etiology unclear - Pt is an 82 y/o female with chronic LE DVT, DM, CAD s/p CABG 2001, COPD, HTN, hyperlipidemia, GERD and PAD s/p femoropopliteal bypass performed by Dr. Aviles 04/2017 complicated by infection requiring I&D. - Pt was brought to the ED at [facility] on 03/04/18 after family reported mild confusion that started earlier this morning. She states that she woke up during the night and didn't know where where she was at and her neighbors called her family and the pt was delusional seeing men in her yard. Her family report the patient was putting inappropriate things into the trash this morning, the pt was disheveled with her pants around her ankles, teeth on the ground, and appeared confused and this is was prompted her to be brought in for evaluation. Pt denies any nausea/vomiting or diarrhea. No urinary symptoms reported at this time and pt is alert and oriented. - Pt became more oriented after the paramedics arrived and the pt can recall the events of what happened. - Head CT in the ED noted ventriculomegaly consistent with central cerebral atrophy versus hydrocephalus, mild periventricular and subcortical white matter small vessel ischemic changes bilaterally, but no acute infarct, acute hemorrhage, midline shift or extra-axial fluid collections. - Offered the pt evaluation with MRI Brain to r/o CVA and the pt declined this. - She had some electrolyte abnormalities on initial labs but its not clear if these were drawn properly as repeat BMP noted improvement in her electrolyses but the pts family reports that she was given IV Calcium and po Potassium prior to the labs being redrawn despite that it indicates that the labs were drawn before the meds were given in the computer. - Her CBC revealed a decrease in her Hgb down to 7.7 from her previous labs on noted Hgb 12.4. No reported melena or BRBPR. Pt reportedly had a negative guaiac stool test in the ED. - Recheck of CBC was ordered for 03/04 but was cancelled by the lab last night - Awaiting repeat today to see if the labs at admission were an accurate reading - Hold her Xarelto until we get a repeat CBC - Blood cultures are pending - Telemetry - PT evaluation this AM - Supportive care Hx of recurrent UTIs - When she was previously admitted to [facility] [place] in November 2017 she had a urine culture which grew out pseudomonas aeruginosa and Morganella morganii and was discharged on Cipro. - On January 21, 2018 pt had a an outpt urine culture growing Proteus mirabilis and pt was treated with Trimethoprim 100mg BID x 7 days. Repeat UA on 02/01 was again abnormal with noted trace leuk esterase and pt was prescribed Amoxicillin 500mg TID x 7 days. In review of her outpt records it appears she was also prescribed Nitrofurantoin 100mg BID on 02/09/18 and 02/17/18. - Pts UA in the ED was negative. PAD Chronic LE DVT Possible cellulitis - Pt reports that she has chronic pain, redness and swelling in the LLE. - She was started on Doxycycline on 02/25/19 for possible cellulitis in the LE. She states that she for the last week she has had an open wound with drainage on the RLE and has been receiving local wound care. She reports that she is following with podiatry for this. She does not feel that her legs look any worse than it typically does. - Consult wound care - Pt is s/p femoropopliteal bypass performed by Dr. Aviles 04/2017 complicated by infection requiring I&D. This was complicated by infection requiring hospitalization 06/16/17 - 06/25/17. Culture at that time grew MSSA and Pseudomonas. She was treated with IV Zosyn at that time. - Cont. cefazolin 1gram Q8H IV - Monitor clinical status (2) Anemia Code(s): D64.9 - Anemia, unspecified Status: Acute (3) HTN (hypertension) Code(s): I10 - Essential (primary) hypertension Status: Chronic (4) Hyperlipidemia Code(s): E78.5 - Hyperlipidemia, unspecified Status: Chronic (5) Chronic deep vein thrombosis (DVT) Code(s): I82.509 - Chronic embolism and thrombosis of unspecified deep veins of unspecified lower extremity Status: Chronic
[2018-03-05] MEDS: Furosemide 20 MG Tablet PO SCH ×2 (09:27→21:30)
[2018-03-05] MEDS: Isosorbide Mononitrate 60 MG ER 24HR Tablet (Imdur) PO SCH (09:28)
[2018-03-05] MEDS: Senna/Docusate Sodium 8.6/50 MG Tablet PO SCH ×2 (09:28→21:31)
[2018-03-05] MEDS: Pantoprazole Sodium 20 MG DR Tablet PO SCH (09:29)
[2018-03-05] MEDS: Metoprolol Tartrate 50 MG Tablet PO SCH ×2 (09:29→21:32)
[2018-03-05 11:10] LABS: Baso # (Auto) 0.1 th/mm3 (0.0-0.2); Baso % (Auto) 0.7 % (0.0-2.0); Eos # (Auto) 0.1 th/mm3 (0.0-0.4); Eos % (Auto) 1.1 % (0.0-4.0); Hematocrit 37.4 % (35.0-46.0); Lymph # (Auto) 2.7 th/mm3 (1.0-4.8); Lymph % (Auto) 35.8 % (9.0-44.0); Mean Corpuscular HGB Conc 32.4 % (32.0-36.0); Mean Corpuscular Hemoglobin 26.7 pg (27.0-34.0); Mean Corpuscular Volume 82.2 fL (80.0-100.0); Mono # (Auto) 0.5 th/mm3 (0.0-0.9); Mono % (Auto) 6.2 % (0.0-8.0); Neut # (Auto) 4.2 th/mm3 (1.8-7.7); Neut % (Auto) 56.2 % (16.0-70.0); Platelet Count 239 th/mm3 (150-450); Red Blood Count 4.55 mil/mm3 (4.00-5.30); Red Cell Distribution Width 15.9 % (11.6-17.2); White Blood Count 7.4 th/mm3 (4.0-11.0)
[2018-03-05 11:15] LABS: Hemoglobin 12.1 gm/dL (11.6-15.3)
--- NOTE | 2018-03-05 13:17 | ECG ---
Date Performed: 03/04/2018 Time Performed: 15:55:03 PTAGE: 82 years EKG: Sinus rhythm RIGHT BUNDLE BRANCH BLOCK MINIMAL VOLTAGE CRITERIA FOR LVH, CONSIDER NORMAL VARIANT ABNORMAL ECG PREVIOUS TRACING : 12/18/2017 05.13 DOCTOR: Jerman Jackson Interpretating Date/Time 03/05/2018 13:12:37
[2018-03-05] MEDS: Rivaroxaban 20 MG Tablet PO SCH (15:36)
[2018-03-06 07:27] LABS: Baso % (Auto) 0.6 % (0.0-2.0); Eos # (Auto) 0.1 th/mm3 (0.0-0.4); Eos % (Auto) 1.3 % (0.0-4.0); Hematocrit 35.6 % (35.0-46.0); Hemoglobin 11.3 gm/dL (11.6-15.3); Lymph # (Auto) 2.3 th/mm3 (1.0-4.8); Lymph % (Auto) 30.4 % (9.0-44.0); Mean Corpuscular HGB Conc 31.9 % (32.0-36.0); Mean Corpuscular Hemoglobin 26.2 pg (27.0-34.0); Mean Corpuscular Volume 82.1 fL (80.0-100.0); Mean Platelet Volume 7.9 fL (7.0-11.0); Mono # (Auto) 0.7 th/mm3 (0.0-0.9); Mono % (Auto) 8.9 % (0.0-8.0); Neut # (Auto) 4.5 th/mm3 (1.8-7.7); Neut % (Auto) 58.8 % (16.0-70.0); Platelet Count 192 th/mm3 (150-450); Red Blood Count 4.33 mil/mm3 (4.00-5.30); Red Cell Distribution Width 15.6 % (11.6-17.2); White Blood Count 7.7 th/mm3 (4.0-11.0)
[2018-03-06 07:30] VITALS: O2SAT 94
[2018-03-06 07:40] VITALS: BP 128/60; PULSE 64; RESP 16; TEMP 98
[2018-03-06 07:56] LABS: Calcium 8.7 mg/dL (8.5-10.1); Carbon Dioxide 25.5 meq/L (21.0-32.0); Potassium 4.1 meq/L (3.5-5.1)
--- NOTE | 2018-03-06 08:06 | P.PNIM ---
Subjective Interval history: Pt without any new complaints She is anxious to go home Physical Exam Vital signs: Vital Signs 03/05/18 12:00 03/05/18 16:00 03/05/18 19:47 Temperature 97.6 F 97.6 F 97.6 F Pulse Rate 57 L 64 73 Respiratory Rate 16 16 18 Blood Pressure 111/52 L 116/60 115/62 Pulse Oximetry 97 95 94 L 03/05/18 20:00 03/05/18 23:19 03/06/18 02:22 Temperature 98.7 F Pulse Rate 53 L 68 Respiratory Rate 18 Blood Pressure 119/65 Pulse Oximetry 96 96 03/06/18 04:00 03/06/18 07:30 03/06/18 07:38 Temperature 98 F 98.0 F Pulse Rate 55 L 64 Respiratory Rate 18 16 Blood Pressure 119/54 L 128/60 Pulse Oximetry 93 L 94 L 94 L Intake & Output 03/05/18 03/06/18 03/06/18 18:59 06:59 18:59 Intake Total 100 / 100 200 / 200 220 / 220 Balance 100 / 100 200 / 200 220 / 220 Intake: IV 100 / 100 200 / 200 Ancef Inj 1,000 MG In NS Inj 100 / 100 200 / 200 100 ML @ 200 mls/hr IV.SIG Q8H KO Rx#:[id number] Oral 120 / 120 Other 100 / 100 Other: Other Intake Source Saline Solution # Voids 4 Date of Last Bowel Movement 03/05/18 03/03/18 # Bowel Movements 1 Narrative: GENERAL: NAD, AAOx3 CARDIO: Regular rate and rhythm. RESP: CTA bilaterally. ABD: Abdomen soft, non-tender, nondistended. EXT: Bilateral LE edema, less today. RLE with small wound on right anterior [place] , no erythema, warmth or drainage noted. LLE with erythema, no warmth and improved tenderness, overall improving Results - Labs CBC & Chem 7: 03/06/18 07:10 03/06/18 07:10 Laboratory Results - last 24 hr 03/05/18 03/05/18 03/05/18 06:55 08:18 10:46 WBC 7.4 RBC 4.55 Hgb 12.1 D Hct 37.4 MCV 82.2 MCH 26.7 L MCHC 32.4 RDW 15.9 Plt Count 239 D MPV 8.0 Neut % (Auto) 56.2 Lymph % (Auto) 35.8 [place] % (Auto) 6.2 Eos % (Auto) 1.1 Baso % (Auto) 0.7 Neut # (Auto) 4.2 Lymph # (Auto) 2.7 [place] # (Auto) 0.5 Eos # (Auto) 0.1 Baso # (Auto) 0.1 WBC Differential . Differential Comment Auto diff final Sodium 145 Potassium 4.3 Chloride 113 H Carbon Dioxide 23.6 Anion Gap 8 BUN 18 Creatinine 0.82 Estimated GFR 67 L POC Glucose 96 Random Glucose 94 Calcium 8.8 Total Bilirubin 0.8 AST 24 ALT 20 Alkaline Phosphatase 98 Total Protein 6.1 L D Albumin 2.7 L 03/05/18 03/05/18 03/05/18 12:10 17:46 20:58 WBC RBC Hgb Hct MCV MCH MCHC RDW Plt Count MPV Neut % (Auto) Lymph % (Auto) [place] % (Auto) Eos % (Auto) Baso % (Auto) Neut # (Auto) Lymph # (Auto) [place] # (Auto) Eos # (Auto) Baso # (Auto) WBC Differential Differential Comment Sodium Potassium Chloride Carbon Dioxide Anion Gap BUN Creatinine Estimated GFR POC Glucose 147 H 80 117 H Random Glucose Calcium Total Bilirubin AST ALT Alkaline Phosphatase Total Protein Albumin 03/06/18 03/06/18 07:10 07:10 WBC 7.7 RBC 4.33 Hgb 11.3 L Hct 35.6 MCV 82.1 MCH 26.2 L MCHC 31.9 L RDW 15.6 Plt Count 192 MPV 7.9 Neut % (Auto) 58.8 Lymph % (Auto) 30.4 [place] % (Auto) 8.9 H Eos % (Auto) 1.3 Baso % (Auto) 0.6 Neut # (Auto) 4.5 Lymph # (Auto) 2.3 [place] # (Auto) 0.7 Eos # (Auto) 0.1 Baso # (Auto) 0.0 WBC Differential . Differential Comment Auto diff final Sodium 145 Potassium 4.1 Chloride 108 H Carbon Dioxide 25.5 Anion Gap 12 BUN 20 H Creatinine 1.13 H Estimated GFR 46 L POC Glucose Random Glucose 109 H Calcium 8.7 Total Bilirubin AST ALT Alkaline Phosphatase Total Protein Albumin Microbiology 03/04/18 10:00 Blood - Peripheral Aerobic Blood Culture - Preliminary No growth in 1 day 03/04/18 10:00 Blood - Peripheral Anaerobic Blood Culture - Preliminary No growth in 1 day 03/04/18 09:50 Blood - Peripheral Aerobic Blood Culture - Preliminary No growth in 1 day 03/04/18 09:50 Blood - Peripheral Anaerobic Blood Culture - Preliminary No growth in 1 day - Imaging Chest X-Ray 03/04/18 09:16 CONCLUSION: 1. Minimal central pulmonary vascular congestion. 2. Cardiomegaly. Head CT 03/04/18 09:16 CONCLUSION: 1. Ventriculomegaly consistent with central cerebral atrophy versus hydrocephalus. Clinical correlation is recommended. 2. Mild periventricular and subcortical white matter small vessel ischemic changes bilaterally. 3. No acute infarct, acute hemorrhage, midline shift or extra-axial fluid collections. . Assessment and Plan - Assessment (1) Confusion Code(s): R41.0 - Disorientation, unspecified Status: Acute Plan: AMS/Delusional, transient, etiology unclear - Pt is an 82 y/o female with chronic LE DVT, DM, CAD s/p CABG 2001, COPD, HTN, hyperlipidemia, GERD and PAD s/p femoropopliteal bypass performed by Dr. Aviles 04/2017 complicated by infection requiring I&D. - Pt was brought to the ED at [facility] [place] on 03/04/18 after family reported mild confusion that started earlier this morning. She states that she woke up during the night and didn't know where where she was at and her neighbors called her family and the pt was delusional seeing men in her yard. Her family report the patient was putting inappropriate things into the trash this morning, the pt was disheveled with her pants around her ankles, teeth on the ground, and appeared confused and this is was prompted her to be brought in for evaluation. Pt denies any nausea/vomiting or diarrhea. No urinary symptoms reported at this time and pt is alert and oriented. - Pt became more oriented after the paramedics arrived and the pt can recall the events of what happened. - Head CT in the ED noted ventriculomegaly consistent with central cerebral atrophy versus hydrocephalus, mild periventricular and subcortical white matter small vessel ischemic changes bilaterally, but no acute infarct, acute hemorrhage, midline shift or extra-axial fluid collections. - Offered the pt evaluation with MRI Brain to r/o CVA and the pt declined this. Unable to rule out TIA/CVA as a cause for her temporary AMS. - She had some electrolyte abnormalities on initial labs but its not clear if these were drawn properly as repeat BMP noted improvement in her electrolyses but the pts family reports that she was given IV Calcium and po Potassium prior to the labs being redrawn despite that it indicates that the labs were drawn before the meds were given in the computer. - Her CBC revealed a decrease in her Hgb down to 7.7 from her previous labs on noted Hgb 12.4. No reported melena or BRBPR. Pt reportedly had a negative guaiac stool test in the ED. - Recheck of CBC was ordered for 03/04 but was cancelled by the lab - Repeat CBC on 03/05 revealed that the Hgb was 12, so initial CBC with Hgb 7 was likely a lab error. - Her Xarelto was continued. - Blood cultures with NGTD - Telemetry - PT recommending HHC/PT - Supportive care Hx of recurrent UTIs - When she was previously admitted to [facility] [place] in November 2017 she had a urine culture which grew out pseudomonas aeruginosa and Morganella morganii and was discharged on Cipro. - On January 21, 2018 pt had a an outpt urine culture growing Proteus mirabilis and pt was treated with Trimethoprim 100mg BID x 7 days. Repeat UA on 02/01 was again abnormal with noted trace leuk esterase and pt was prescribed Amoxicillin 500mg TID x 7 days. In review of her outpt records it appears she was also prescribed Nitrofurantoin 100mg BID on 02/09/18 and 02/17/18. - Pts UA in the ED was negative. PAD Chronic LE DVT Possible cellulitis - Pt reports that she has chronic pain, redness and swelling in the LLE. - She was started on Doxycycline on 02/25/19 for possible cellulitis in the LE. She states that she for the last week she has had an open wound with drainage on the RLE and has been receiving local wound care. She reports that she is following with podiatry for this. She does not feel that her legs look any worse than it typically does. - Pt is s/p femoropopliteal bypass performed by Dr. Aviles 04/2017 complicated by infection requiring I&D. This was complicated by infection requiring hospitalization 06/16/17 - 06/25/17. Culture at that time grew MSSA and Pseudomonas. She was treated with IV Zosyn at that time. - Cont. cefazolin 1gram Q8H IV - Her legs are appearing less swollen and tender. Will likely change Abx to oral meds today - Anticipate d/c home today with HHC/PT. The exam, history, and the medical decision-making described in the above note were completed with the assistance of the mid-level provider. I reviewed and agree with the findings presented. I attest that I had a [id number] encounter with the patient on the same day, and personally performed and documented my assessment and findings in the medical record. (2) Anemia Code(s): D64.9 - Anemia, unspecified Status: Acute (3) HTN (hypertension) Code(s): I10 - Essential (primary) hypertension Status: Chronic (4) Hyperlipidemia Code(s): E78.5 - Hyperlipidemia, unspecified Status: Chronic (5) Chronic deep vein thrombosis (DVT) Code(s): I82.509 - Chronic embolism and thrombosis of unspecified deep veins of unspecified lower extremity Status: Chronic
[2018-03-06] MEDS: Isosorbide Mononitrate 60 MG ER 24HR Tablet (Imdur) PO SCH (08:22)
[2018-03-06] MEDS: Senna/Docusate Sodium 8.6/50 MG Tablet PO SCH (08:22)
[2018-03-06] MEDS: Rivaroxaban 20 MG Tablet PO SCH (08:23)
[2018-03-06] MEDS: Metoprolol Tartrate 50 MG Tablet PO SCH (08:23)
[2018-03-06] MEDS: Pantoprazole Sodium 20 MG DR Tablet PO SCH (08:23)
[2018-03-06] MEDS: Furosemide 20 MG Tablet PO SCH (08:23)
--- NOTE | 2018-03-06 08:25 | P.DCO ---
- Diagnosis (1) Cellulitis Status: Acute (2) HTN (hypertension) Status: Chronic (3) Hyperlipidemia Status: Chronic (4) Chronic deep vein thrombosis (DVT) Status: Chronic (5) PAD (peripheral artery disease) Status: Chronic (6) Confusion Status: Acute - Physical Therapy Order: Evaluate and treat - Home Health Nursing Order: Medical education, Wound care and dressing changes, Nursing assessment with vital signs Instructions: Please check UA with culture is indicated, CBC and CMP on 03/09/18, with results to be sent to her PCP, Dr. Hill. - Case Management Consult No - Certification I have seen patient Zahida Serrano Burnsed on 03/06/18. My clinical findings support the need for the requested home health care services because: Limited ability to care for self, High risk of falls I certify that my clinical findings support that this patient is homebound because: Unsteady gait/balance (1) Cellulitis Qualifiers: Site of cellulitis: extremity Site of cellulitis of extremity: lower extremity Laterality: unspecified laterality Qualified Code(s): L03.119 - Cellulitis of unspecified part of limb
[2018-03-06] MEDS: Insulin NovoLOG Aspart Correctional Sugar Inj SQ SCH (08:52)
== END 2018-03-06 10:27 | disposition home health service (06) ==
LOC: NEDA 09:07 → NEPC 09:07 → NEPHCDU 18:15
PROVIDERS: ADMIT Hospitalist; ATTEND Hospitalist